=== PATIENT | male | born 1955 | race Caucasian/White ===

== ENCOUNTER 2017-05-29 07:11 | Inpatient (IN) | payer MEDICARE, OTHER ==
[2017-05-29] MEDS ORDERED: Albuterol/Ipratropium NEB.SOL* Albuterol 2.5 MG/Ipratropium 0.5 MG 3 ML INH ONE ×2 (07:21→07:22)
[2017-05-29] MEDS ORDERED: methylPREDNISolone 125 MG* 2 ML VIAL IV ONE (07:22)
[2017-05-29] MEDS ORDERED: NS 0.9% 1000 ML* 1,000 ML IV ONE (07:22)
[2017-05-29] MEDS ORDERED: NS 0.9% 1000 ML* 3,000 ML IV ONE (07:50)
[2017-05-29] MEDS ORDERED: cefTRIAXone(*) 1 GM in NS 0.9% 50 ML* 50 ML IVPB ONE (07:50)
[2017-05-29] MEDS ORDERED: Azithromycin IV(*) 500 MG in NS 0.9% 250 ML* 250 ML IVPB ONE (07:51)
[2017-05-29 07:53] LABS: Hematocrit 51 % (42-52); Hemoglobin 16.9 g/dl (14.0-18.0); Mean Corpuscular HGB Conc 34 g/dl (31-36); Mean Corpuscular Hemoglobin 32 pg (27-31); Mean Corpuscular Volume 96 fL (80-94); Mean Platelet Volume 9 um3 (7.4-10.4); Red Blood Count 5.29 10^6/ul (4.0-5.4); Red Cell Distribution Width 14 % (10.5-15); White Blood Count 13.2 10^3/ul (3.5-10.8)
[2017-05-29 07:54] LABS: Add Diff/Slide Review? Slide Review Added; Comments Flag Yes
--- NOTE | 2017-05-29 08:00 | RAD ---
INDICATION: Shortness of breath, pneumonia and congestive heart failure. COMPARISON: Comparison is made with a prior chest x-ray study from January 22, [address] of the chest from December 03, 2014. TECHNIQUE: A portable view of the chest was obtained. FINDINGS: The heart appears mildly enlarged and unchanged. There is a focal infiltrate at the right lung base suggestive of pneumonia. There is mild blunting of both costophrenic angles which appears unchanged. IMPRESSION: RIGHT BASILAR FILTRATE MOST CONSISTENT WITH PNEUMONIA, RECOMMEND FOLLOW-UP CHEST X-RAYS TO RESOLUTION.
[2017-05-29 08:04] LABS: Albumin 4.7 g/dL (3.2-5.2); BUN/Creatinine Ratio 17.7 (8-20); C Reactive Protein 280.33 mg/L (< 5.00); Calcium 9.6 mg/dL (8.6-10.3); EGFR African American 76.5 (>60); EGFR Non-African American 59.5 (>60); Globulin 3.4 g/dL (2-4); Potassium 4.3 mmol/L (3.5-5.0); Total Bilirubin 1.3 mg/dL (0.2-1.0); Total Protein 8.1 g/dL (6.4-8.9)
[2017-05-29 08:06] LABS: PCO2 Arterial 82 mmHg (35-45)
[2017-05-29 08:07] LABS: Troponin I 0.03 ng/mL (<0.04)
[2017-05-29] MEDS ORDERED: Albuterol 2.5 MG/3 ML NEB.SOL* (0.083%) ONE ×2 (08:12→09:27)
[2017-05-29 08:28] LABS: Immature Granulocytes 8 % (0-9); Neutrophil % 74 % (38-83); RBC Morphology Normal (Normal); Reactive Lymph % 2 % (0-6)
[2017-05-29] MEDS ORDERED: Albuterol 2.5 MG/3 ML NEB.SOL* (0.083%) INH ONE ×2 (09:29→09:30)
[2017-05-29] MEDS ORDERED: NS 0.9% 1000 ML* 1,000 ML IV SCH (09:30)
[2017-05-29] MEDS ORDERED: Albuterol 2.5 MG/3 ML NEB.SOL* (0.083%) INH PRN (09:32)
[2017-05-29 09:48] LABS: EPAP 8; FIO2 45; IPAP 14
[2017-05-29 09:57] LABS: PCO2 Arterial 72 mmHg (35-45)
[2017-05-29] MEDS: Morphine INJ* 2 MG/ML 1 ML CARPUJECT IV PRN ×3 (10:17→23:18)
[2017-05-29] MEDS: NS 0.9% 1000 ML* 2,000 ML IV ONE ×2 (10:35→11:30)
--- NOTE | 2017-05-29 10:49 | ED ---
Shiv Vila Angela, scribed for John Bustamante MD on 05/29/17 at 0731 . Shortness of Breath - HPI Summary HPI Summary: This pt is a 61 y/o male presenting to [facility] c/o SOB and cough x2 days, worse this morning. Pt was pulled out of his car this morning due to SOB and taken to the ED. Pt reports feeling diaphoretic, wheezing a lot, and having a productive cough with brown tenacious phlegm. Pt denies fever, chills, chest pain. He is not on home O2. Pt is a current smoker. PMHx: COPD. Pt has had a similar episode of SOB in 2016. - History of Current Complaint Time Seen by Provider: 05/29/17 07:15 Hx Obtained From: Patient, Family/Freight Shipping Agent - Onset/Duration: Gradual Onset Timing: Constant Associated Signs & Symptoms: Cough (Productive) Related History: Similar Episode - in 2016 - Allergy/Home Medications Allergies/Adverse Reactions: Allergies Allergy/AdvReac Type Severity Reaction Status Date / Time No Known Drug Allergy Allergy See Comment Verified 01/22/16 14:57 PMH/Surg Hx/FS Hx/Imm Hx Respiratory History: Reports: Hx Chronic Obstructive Pulmonary Disease (COPD) Sensory History: Reports: Hx Contacts or Glasses Opthamlomology History: Reports: Hx Contacts or Glasses - Cancer History Cancer Type, Location and Year: NO HISTORY PER PT - Surgical History Surgery Procedure, Year, and Place: tonsils; glaucoma lasar bilat Infectious Disease History: Denies: Hx Clostridium Difficile, Hx Hepatitis, Hx Human Immunodeficiency Virus (HIV), Hx of Known/Suspected MRSA, Hx Shingles, Hx Tuberculosis, Hx Known/ Suspected VRE, Hx Known/Suspected VRSA, History Other Infectious Disease - Family History Known Family History: Positive: Other - NONCONTRIBUTORY - Social History Alcohol Use: None Substance Use Type: Reports: None Smoking Status (MU): Light Every Day Tobacco Smoker Amount Used/How Often: 3 -4 cigs daily Review of Systems Negative: Fever, Chills Eyes: Negative ENT: Negative Negative: Chest Pain Positive: Shortness Of Breath, Cough Gastrointestinal: Negative Genitourinary: Negative Skin: Negative Neurological: Negative Psychological: Normal All Other Systems Reviewed And Are Negative: Yes Physical Exam - Summary Physical Exam Summary: The patient is well-nourished in moderate to severe respiratory distress. The skin is warm and skin color reflects adequate perfusion. Pt is diaphoretic. HEENT: The head is normocephalic and atraumatic. The pupils are equal and reactive. The conjunctivae are clear and without drainage. Pt has rhinorrhea. Mouth reveals moist mucous membranes and the throat is without erythema and exudate. The external ears are intact. The ear canals are patent and without drainage. The tympanic membranes are intact. The pt has a productive cough with brown phlegm. Neck is supple with full range of motion and non-tender. There are no carotid bruits. There is no neck vein distension. Respiratory: Chest is non-tender. There are diminished breath sounds throughout. No rales or crackles were heard. Cardiovascular: Heart is tachycardic. There is no murmur or rub auscultated. There is pedal edema in the lower extremities. Abdomen: The abdomen is non-tender. The abdomen is distended. There are normal bowel sounds heard in all four quadrants. Musculoskeletal: There is no back pain noted. Extremities are non-tender with full range of motion. The capillary refill is greater than 3 seconds. There is pedal edema in the lower extremities. There is no calf tenderness elicited. There is intercostal and abdominal retractions. Neurological: Patient is alert and oriented to person, place and time. The patient has symmetrical motor strength in all four extremities. Psychiatric: The patient has an appropriate affect and does not exhibit any anxiety or depression. The pt is cooperative. Triage Information Reviewed: Yes Vital Signs On Initial Exam: Initial Vitals Temp Pulse Resp BP Pulse Ox 97.6 F 141 28 155/85 63 05/29/17 07:17 05/29/17 07:17 05/29/17 07:17 05/29/17 07:17 05/29/17 07:17 Vital Signs Reviewed: Yes Diagnostics - Vital Signs Vital Signs Temp Pulse Resp BP Pulse Ox 05/29/17 09:00 126 29 127/69 97 05/29/17 08:52 38 05/29/17 08:30 112 25 112/68 98 05/29/17 08:00 137 33 97 05/29/17 07:38 97.6 F 142 38 117/103 92 05/29/17 07:37 139 30 117/103 95 05/29/17 07:20 140 29 85 05/29/17 07:17 97.6 F 141 28 155/85 63 - Laboratory Lab Results: Lab Results 05/29/17 05/29/17 05/29/17 Range/Units 07:25 07:25 07:25 WBC 13.2 H (3.5-10.8) 10^3/ul RBC 5.29 (4.0-5.4) 10^6/ul Hgb 16.9 (14.0-18.0) g/dl Hct 51 (42-52) % MCV 96 H (80-94) fL MCH 32 H (27-31) pg MCHC 34 (31-36) g/dl RDW 14 (10.5-15) % Plt Count 216 (150-450) 10^3/ul MPV 9 (7.4-10.4) um3 Immature Gran % (Auto) 8 (0-9) % Neut % (Auto) 74.5 (38-83) % Lymph % (Auto) 10.4 L (25-47) % [place] % (Auto) 14.4 H (1-9) % Eos % (Auto) 0.2 (0-6) % Baso % (Auto) 0.5 (0-2) % Absolute Neuts (auto) 9.8 H (1.5-7.7) 10^3/ul Absolute Lymphs (auto) 1.4 (1.0-4.8) 10^3/ul Absolute Monos (auto) 1.9 H (0-0.8) 10^3/ul Absolute Eos (auto) 0 (0-0.6) 10^3/ul Absolute Basos (auto) 0.1 (0-0.2) 10^3/ul Absolute Nucleated RBC 0.01 10^3/ul Neutrophils % 74 (38-83) % Band Neutrophils % 8 (0-8) % Lymphocytes % 8 L (25-47) % Reactive Lymphs % 2 (0-6) % Monocytes % 8 (0-13) % Nucleated RBC % 0.1 Normal RBC Morphology Normal (Normal) INR (Anticoag Therapy) (0.89-1.11) APTT (26.0-36.3) seconds Patient Temperature ABG pH (7.35-7.45) ABG pCO2 (35-45) mmHg ABG pO2 (80-100) mmHg ABG HCO3 (19-31) mmol/L ABG O2 Saturation (95-98) % ABG Base Excess (-2.0-2.0) Respiration Rate O2 Delivery Device Ventilator Type Vent Mode FiO2 Inspiratory Time PEEP Pressure Support Pressure Control EPAP IPAP BiPAP Sodium 135 (133-145) mmol/L Potassium 4.3 (3.5-5.0) mmol/L Chloride 97 L (101-111) mmol/L Carbon Dioxide 27 (22-32) mmol/L Anion Gap 11 (2-11) mmol/L BUN 22 (6-24) mg/dL Creatinine 1.24 H (0.67-1.17) mg/dL Est GFR ( Amer) 76.5 (>60) Est GFR (Non-Af Amer) 59.5 (>60) BUN/Creatinine Ratio 17.7 (8-20) Glucose 150 H (70-100) mg/dL Lactic Acid 2.7 H* (0.5-2.0) mmol/L Calcium 9.6 (8.6-10.3) mg/dL Total Bilirubin 1.30 H (0.2-1.0) mg/dL AST 23 (13-39) U/L ALT 20 (7-52) U/L Alkaline Phosphatase 99 (34-104) U/L Troponin I 0.03 (<0.04) ng/mL C-Reactive Protein 280.33 H (< 5.00) mg/L B-Natriuretic Peptide ( - 100) pg/mL Total Protein 8.1 (6.4-8.9) g/dL Albumin 4.7 (3.2-5.2) g/dL Globulin 3.4 (2-4) g/dL Albumin/Globulin Ratio 1.4 (1-3) 05/29/17 05/29/17 05/29/17 Range/Units 07:25 07:25 07:55 WBC (3.5-10.8) 10^3/ul RBC (4.0-5.4) 10^6/ul Hgb (14.0-18.0) g/dl Hct (42-52) % MCV (80-94) fL MCH (27-31) pg MCHC (31-36) g/dl RDW (10.5-15) % Plt Count (150-450) 10^3/ul MPV (7.4-10.4) um3 Immature Gran % (Auto) (0-9) % Neut % (Auto) (38-83) % Lymph % (Auto) (25-47) % [place] % (Auto) (1-9) % Eos % (Auto) (0-6) % Baso % (Auto) (0-2) % Absolute Neuts (auto) (1.5-7.7) 10^3/ul Absolute Lymphs (auto) (1.0-4.8) 10^3/ul Absolute Monos (auto) (0-0.8) 10^3/ul Absolute Eos (auto) (0-0.6) 10^3/ul Absolute Basos (auto) (0-0.2) 10^3/ul Absolute Nucleated RBC 10^3/ul Neutrophils % (38-83) % Band Neutrophils % (0-8) % Lymphocytes % (25-47) % Reactive Lymphs % (0-6) % Monocytes % (0-13) % Nucleated RBC % Normal RBC Morphology (Normal) INR (Anticoag Therapy) 1.15 H (0.89-1.11) APTT 42.7 H (26.0-36.3) seconds Patient Temperature Not Reportable ABG pH 7.15 L* (7.35-7.45) ABG pCO2 82 H* (35-45) mmHg ABG pO2 120 H (80-100) mmHg ABG HCO3 22.3 (19-31) mmol/L ABG O2 Saturation 97.5 (95-98) % ABG Base Excess -3.2 L (-2.0-2.0) Respiration Rate Not Reportable O2 Delivery Device neb Ventilator Type Not Reportable Vent Mode Not Reportable FiO2 Not Reportable Inspiratory Time Not Reportable PEEP Not Reportable Pressure Support Not Reportable Pressure Control Not Reportable EPAP Not Reportable IPAP Not Reportable BiPAP Not Reportable Sodium (133-145) mmol/L Potassium (3.5-5.0) mmol/L Chloride (101-111) mmol/L Carbon Dioxide (22-32) mmol/L Anion Gap (2-11) mmol/L BUN (6-24) mg/dL Creatinine (0.67-1.17) mg/dL Est GFR ( Amer) (>60) Est GFR (Non-Af Amer) (>60) BUN/Creatinine Ratio (8-20) Glucose (70-100) mg/dL Lactic Acid (0.5-2.0) mmol/L Calcium (8.6-10.3) mg/dL Total Bilirubin (0.2-1.0) mg/dL AST (13-39) U/L ALT (7-52) U/L Alkaline Phosphatase (34-104) U/L Troponin I (<0.04) ng/mL C-Reactive Protein (< 5.00) mg/L B-Natriuretic Peptide 118 H ( - 100) pg/mL Total Protein (6.4-8.9) g/dL Albumin (3.2-5.2) g/dL Globulin (2-4) g/dL Albumin/Globulin Ratio (1-3) Result Diagrams: 05/29/17 07:25 05/29/17 07:25 Lab Statement: Any lab studies that have been ordered have been reviewed, and results considered in the medical decision making process. - Radiology Chest XR Xray Interpretation: Positive (See Comments) - Right lower lobe infiltrate consistent with pneumonia. Radiology Interpretation Completed By: ED Physician, Radiologist - RADIOLOGIST IMPRESSION: Right basilar filtrate most consistent with pneumonia. Recommend follow-up chest X-rays to resolution. ED physician has reviewed this radiology report and agrees. - EKG 7:19 Cardiac Rate: Tachycardia EKG Rhythm: Sinus Rhythm ST Segment: Non-Specific - inferior leads EKG Interpretation: Poor R-wave progression. No STEMI. Re-Evaluation - Re-Evaluation First Eval Re-Evaluation Time: 08:04 Comment: I reviewed the XR results with the pt and . Second Eval Re-Evaluation Time: 08:46 Comment: Pt reports feeling a little better. Pt is not looking well. Course/Dx - Course Assessment/Plan: Elevated BP noted. Labs, chest XR, and EKG were obtained. In the ED course, the pt was given a breathing treatment and solu-medrol. Chest XR shows right basilar filtrate most consistent with pneumonia. Recommend follow- up chest X-rays to resolution. I disccused the pt's case with Dr. Arguelles, who will admit the pt. The pt will be admitted in stable condition. - Diagnoses Differential Diagnosis/HQI/PQRI: Positive: Bronchitis, CHF, COPD Exacerbation, IA, Pneumonia, Other - sepsis Provider Diagnoses: acute respiratory distress/failure, Right lower lobe pneumonia, COPD exacerbation - Physician Notifications Discussed Care of Patient With: Trina Arguelles Time Discussed With Above Provider: 08:50 Instructed by Provider To: Other - Dr. Arguelles will admit the pt. - Critical Care Time Critical Care Time: 30-74 min - 45 minutes Discharge - Discharge Plan Condition: Stable Disposition: ADMITTED TO [facility] documentation as recorded by the Shiv castle Angela accurately reflects the service I personally performed and the decisions made by me, John Bustamante MD.
--- NOTE | 2017-05-29 11:33 | HP ---
CC: Dr. Farris * DATE OF ADMISSION: 05/29/2017. PRIMARY CARE PROVIDER: Dr. Farris. CHIEF COMPLAINT: Shortness of breath. HISTORY OF PRESENT ILLNESS: Mr. Tavares is a 61-year-old male who has a known history of COPD and ongoing tobacco abuse who presents to the emergency room with complaints of severe shortness of breath. The history is obtained from the patient's as the patient is in severe respiratory distress. She states that approximately two days prior to admission he developed cold-like symptoms. She states that very rapidly his shortness of breath progressed to the point where he was unable to breath very easily at home. She noted that he has been having some cough, but not much sputum production; however, after arriving in the emergency room he has been bringing up thick yellow sputum per the respiratory therapist. The patient is extremely tired out from breathing rapidly. He is able to shake his head no that he is not having any chest pain. His states that he has not been having any fever at home as far as she knows. He has been, however, complaining of his back feeling more sore at home than usual. PAST MEDICAL HISTORY: 1. COPD/chronic bronchitis. 2. Ongoing tobacco abuse. PAST SURGICAL HISTORY: None per the patient's . MEDICATIONS: Unknown. ALLERGIES: None. FAMILY HISTORY: Unobtainable from the patient; however, his states that his mom is living, she as COPD. His father of lung cancer. He has one brother who is living, also has COPD. SOCIAL HISTORY: The patient is . He lives with his , Samra Zabala, who is his healthcare proxy. He has two children. He is a former driver's education instructor. He has been smoking since the age of 16 and is currently down to half a pack per day. He does not drink alcohol. REVIEW OF SYSTEMS: Unobtainable from the patient due to acute respiratory distress. PHYSICAL EXAMINATION GENERAL: The patient is a well-developed, middle-aged male sitting on the stretcher, tachypneic and appearing to be in acute distress despite being on BiPAP. VITAL SIGNS: Blood pressure 127/69, pulse 126, respirations 29, temperature 97.6, O2 sat 97 percent on BiPAP with an FI02 of 45 percent. HEENT: Pupils are equal, they are round. Sclerae appear to be injected. Extraocular muscles are intact. Oropharynx is not able to be inspected as the patient is on BiPAP. NECK: No submandibular, cervical or supraclavicular adenopathy is noted. Thyroid is not enlarged. No thyroid nodules are noted. CARDIAC: Normal S1, S2, heart sounds are very distant and rapid. PULMONARY: There is markedly diminished breath sounds in all lung proctor with essentially no air movement noted. ABDOMEN: Bowel sounds are present. Abdomen is soft, nontender, nondistended. It is obese. MUSCULOSKELETAL: There is no cyanosis noted of the digits. There is full active range of motion of the upper extremities. Lower extremity range of motion is not tested due to the patient's respiratory distress. SKIN: Warm, it is dry. There is a fungal-appearing rash to the patient's left lower leg. NEUROLOGIC: Not tested at this time due to the patient's acute respiratory failure. PSYCH: The patient is alert, he appears somewhat anxious which is appropriate for his current situation. LABORATORY DATA: WBC 13.2, hemoglobin 16.9, hematocrit 51, platelets 216. INR 1.15. Sodium 135, potassium 4.3, chloride 97, CO2 27, BUN 22, creatinine 1.24, glucose 150, lactic acid 2.7, calcium 9.6, bilirubin 1.3, AST 23, ALT 20, alk phos 99, troponin 0.03, CRP 280.33, BNP 118, albumin 4.7. ABG 7.15/82/120. EKG revealed sinus tachycardia with a rate of 139. Chest x-ray revealed right basilar infiltrate most consistent with pneumonia. ASSESSMENT AND PLAN: Mr. Tavares is a 61-year-old male with a known history of COPD and ongoing tobacco abuse who presents to the emergency room with complaints of progressive shortness of breath and is found to have a right basilar infiltrate with resultant COPD exacerbation and acute hypoxic and hypercarbic respiratory failure. 1. Acute hypoxic and hypercarbic respiratory failure secondary to right basilar pneumonia: The patient upon immediate assessment in the emergency room was found to have an O2 saturation of only in the 60s. The patient has initially started on Vapotherm; however, ABG revealed his PCO2 to be elevated at 82, therefore he was placed on BiPAP. The patient continues to have a significant amount of work of breathing. I am concerned that he may not be able to be managed with BiPAP and I have confirmed with both the patient and his that he would accept intubation if necessary. The patient will have Solu-Medrol 40 mg IV q.8 hours as well as DuoNeb's and Albuterol nebs available to rougher helper in the air movement. The patient has a severe COPD exacerbation at this point. I believe the COPD exacerbation and resultant hypoxic and hypercarbic respiratory failure secondary to a right basilar pneumonia. The patient has been essentially living at home and out of the hospital for a prolonged period of time. He will be treated as if this is a community- acquired pneumonia with Ceftriaxone and Azithromycin. Sputum culture has been ordered and sent. The gram stain is positive for gram positive cocci in chains , gram positive cocci in clusters, gram negative coccobacilli, and gram positive bacilli. This culture will be followed. Additionally, strep pneumoniae and legionella urinary antigens will be sent. The patient will be admitted to the Intensive Care Unit, again as I am concerned that he may require intubation if he does not turn around in the next hour or so. 2. Sepsis secondary to a right lower lobe pneumonia: The patient's SOFA score is 4 at the time of admission to the hospital. He is septic secondary to a right lower lobe pneumonia. He will received IV fluid hydration. He has already received 3 liters of IV fluid in the emergency room. Again, the patient is going to be admitted to the Intensive Care Unit. 3. Elevated blood sugar: The patient's blood sugar is moderately elevated at 150. This could be a stress reaction; however, I will go ahead and check a hemoglobin A1c. 4. Lactic acidosis: The patient's lactic acid is elevated likely secondary to sepsis and his pneumonia. 5. DVT prophylaxis: According to the adult thrombosis prophylaxis risk factor assessment guide, the patient has a total risk factor score of 3, making his high risk. He will be placed on Heparin 5000 units subcutaneous q.8 hours for DVT prophylaxis. 6. Code status is DNR with a trial of intubation. Sixty-five minutes were spent of critical care time on this patient due to his acute respiratory failure. [id number]/[facility] #: [id number] LUIS
[2017-05-29] MEDS: Cefepime(*) 2 GM in NS 0.9% 50 ML* 50 ML IVPB SCH ×2 (12:15→23:18)
[2017-05-29 12:21] LABS: Urine Bilirubin Negative (Negative); Urine Glucose Negative (Negative); Urine Nitrite Negative (Negative)
[2017-05-29] MEDS: LORazepam INJ* 2 MG/ML 1 ML VIAL IV PUSH PRN ×2 (12:42→21:48)
[2017-05-29] MEDS: Nicotine PATCH 21 MG/24 HR* PATCH TRANSDERM SCH (12:43)
--- NOTE | 2017-05-29 12:50 | CONSULT ---
Consult Consult: CRITICAL CARE MEDICINE DATE: 05/29/17 TIME: 1230 PRIMARY CARE PROVIDER: Brenton REFERRING PROVIDER: Blane REASON/CHIEF COMPLAINT: sob HISTORY OF PRESENT ILLNESS: 61 yo male with h/o copd, acute resp failure with intubation before in 2012, ongoing tob use presenting with severe sob, progressive over last few days. His thinks he has the flu as their daughter subjectively has the flu. Pt had inc cough last 3 days and advancing fatigue. On presentation to ER he was placed on bipap given severe resp acidosis and wob. His repeat abg ph is unchanged. Received abx (C3 and azithro) for RLL pna and about 4L saline. wob remains and potential need for intubation. REVIEW OF SYSTEMS: As per HPI. PAST MEDICAL HISTORY: As per HPI. diffuse bronchiectasis. chronic back pain. madison on prior 2012 admit. MEDICATIONS: Reviewed. ALLERGIES: NKDA SOCIAL HISTORY: Reviewed. about 1/2 ppd. FAMILY HISTORY: Noncontributory at present. PHYSICAL EXAM: Vital Signs: Reviewed. reviewed. HR 110s. RR 30s. Neurologic: awake, communicating. holds capacity but appears fatigued. HEENT: anicteric jason. mm dry. on bipap. Cardiovascular: Tachy, no m appreciated Respiratory: distant with diffuse fine crackles bl Abdomen: obese, soft, nt Extremities: warm Access: picc placed. LABS: Reviewed. IMAGING: Reviewed. MEDICATIONS: Reviewed. ASSESSMENT: 61 M Acute hypercarbic and hypoxic resp failure copd exac CAP Severe sepsis sec to CAP MADISON sec to above lactic acidosis PLAN: Neurologic: communicating and holds capacity. declining ett at this time. present. morphine prn. Cardiovascular: perfusing but inc demands. still needs intravascular volume and will attempt to keep without extra transudative lung water but concern his degree of exudative fluid will continue to expand. place picc as rather early vasopressors to avoid overload, as his dependent lungs can fill up with fluid fast. further fluid this am. Respiratory: on bipap which he will need to continue. MV high teens and a lot to maintain. continue as is. avoid leak as jason is a problem. as explained to pt and his pt in severe illness currently and would rather early intubation to work on reversible process. after some dilibiration he is declining at this time. Explained risk/benefits and will support for some time today on bipap and then re-eval need and his wishes. hopefully more time on bipap can help him ventilate and catch up on his demands with fluids and abx instilled to decrease said demands. time. Gastrointestinal: npo. sup. Renal/Metabolic: f/u madison sec to pre-renal on admission and LA clearance. Infectious Disease: on C3, azithro, but given his degree of bronchiectasis would prefer pseudomonal coverage early on given his crisis, and therefore Cefepime plus azithro for the moment. f/u cx and can de-escalate as indicated. Hematology: hemoconcentrated. hsq Endocrine: given steroids for his copd benenfit and may help his acute ailments. Musculoskeletal: in bed currently and avoid deconditioning. Psych/Social: updated Supportive and preventative care as ordered. Vaccine: declines flu vac SUP: H2 VTE prophylaxis: heparin Disposition: ICU care Code Status: DNR Critical Care Time: 35min FRosey Webb DO
--- NOTE | 2017-05-29 14:41 | PN ---
Progress Note - Progress Note Date of Service: 05/29/17 Note: CRITICAL CARE MEDICINE DATE: 05/29/17 TIME: 1430 Pt tolerating. still declines intubation. explained we'll need to try the bipap for the day and night and hopefully can show some improvement. This is what he agrees too. Time. support. Disposition: ICU care Code Status: DNR/DNI Critical Care Time: 15min FRosey Webb, DO
[2017-05-29] MEDS: methylPREDNISolone SOD 40 MG* 1 ML VIAL IV SCH ×2 (16:07→23:18)
[2017-05-29] MEDS: Nicotine Patch Removal NOTE PATCH OFF SCH (21:41)
[2017-05-29] MEDS ORDERED: NS 0.9% 50 ML* 50 ML ONE (23:00)
[2017-05-30] MEDS: LORazepam INJ* 2 MG/ML 1 ML VIAL IV PUSH PRN (03:57)
[2017-05-30 04:27] LABS: Hematocrit 42 % (42-52); Hemoglobin 13.8 g/dl (14.0-18.0); Mean Corpuscular HGB Conc 33 g/dl (31-36); Mean Corpuscular Hemoglobin 32 pg (27-31); Mean Corpuscular Volume 97 fL (80-94); Mean Platelet Volume 9 um3 (7.4-10.4); Red Blood Count 4.33 10^6/ul (4.0-5.4); Red Cell Distribution Width 14 % (10.5-15); White Blood Count 8.4 10^3/ul (3.5-10.8)
[2017-05-30 04:32] LABS: BUN/Creatinine Ratio 21.2 (8-20); Calcium 7.7 mg/dL (8.6-10.3); EGFR African American 118.2 (>60); EGFR Non-African American 91.9 (>60); Potassium 4.5 mmol/L (3.5-5.0)
[2017-05-30] MEDS: Heparin VIAL(*) 5000 UNITS/ML VIAL (FIVE THOUSAND) SUBCUT SCH ×3 (05:09→22:04)
--- NOTE | 2017-05-30 07:15 | PN ---
Subjective Date of Service: 05/30/17 Interval History: Pt states he may feel slightly better today than yesterday. He has still been coughing up mucous. He is on BiPAP and it is difficult to communicate. Objective Active Medications: Acetaminophen (Tylenol Tab*) 650 mg PO Q4H PRN PRN Reason: PAIN Albuterol (Ventolin 2.5 Mg/3 Ml Neb.Silvana*) 2.5 mg INH Q1H PRN PRN Reason: SOB/WHEEZING Albuterol/Ipratropium (Duoneb (Albuterol 2.5 Mg/Ipratropium 0.5 Mg)) 1 neb INH Q2H PRN PRN Reason: SOB/WHEEZING Heparin Sodium (Porcine) (Heparin Flush Picc/Ml/Cvc(*)) 1 - 3 ml FLUSH 0600, 1800 [facility]GAN PRN Reason: Protocol Last Admin: 05/30/17 05:08 Dose: 2 ml Heparin Sodium (Porcine) (Heparin Vial(*)) 5,000 units SUBCUT Q8HR [facility] Last Admin: 05/30/17 05:09 Dose: 5,000 units Sodium Chloride (Ns 0.9% 1000 Ml*) 1,000 mls @ 125 mls/hr IV PER RATE [facility] Last Admin: 05/29/17 10:19 Dose: 125 mls/hr Azithromycin 500 mg/ Sodium (Chloride) 250 mls @ 250 mls/hr IVPB Q24H [facility] Cefepime HCl 2 gm/ Sodium (Chloride) 50 mls @ 100 mls/hr IVPB Q12H [facility] Last Admin: 05/29/17 23:18 Dose: 100 mls/hr Lorazepam (Ativan Inj*) 0.5 mg IV PUSH Q4H PRN PRN Reason: ANXIETY Last Admin: 05/30/17 03:57 Dose: 0.5 mg Methylprednisolone Sodium Succinate (Solu-Medrol 40 Mg) 40 mg IV Q8H [facility] Last Admin: 05/29/17 23:18 Dose: 40 mg Morphine Sulfate (Morphine Inj (Syringe)*) 2 mg IV Q4H PRN PRN Reason: air hunger Last Admin: 05/29/17 23:18 Dose: 2 mg Nicotine (Nicotine Patch 21 Mg/24 Hr*) 1 patch TRANSDERM DAILY [facility] Last Admin: 05/29/17 12:43 Dose: 1 patch Pharmacy Profile Note (Nicotine Patch Removal Note*) 1 note PATCH OFF 2100 MORGAN Last Admin: 05/29/17 21:41 Dose: 1 note Vital Signs 05/29/17 05/29/17 05/29/17 09:30 09:40 09:53 Temperature Pulse Rate 121 118 123 Respiratory 30 26 Rate Blood Pressure 121/58 (mmHg) O2 Sat by Pulse 97 97 97 Oximetry 05/29/17 05/29/17 05/29/17 10:00 10:03 10:06 Temperature 98.5 F Pulse Rate 120 127 126 Respiratory 38 Rate Blood Pressure 136/84 136/84 (mmHg) O2 Sat by Pulse 95 96 93 Oximetry 05/29/17 05/29/17 05/29/17 10:16 10:17 10:30 Temperature Pulse Rate 120 118 Respiratory 35 31 33 Rate Blood Pressure 136/78 134/73 (mmHg) O2 Sat by Pulse 93 93 Oximetry 05/29/17 05/29/17 05/29/17 10:42 11:00 11:12 Temperature Pulse Rate 115 112 Respiratory 32 34 33 Rate Blood Pressure 121/68 (mmHg) O2 Sat by Pulse 95 95 Oximetry 05/29/17 05/29/17 05/29/17 11:30 11:48 12:00 Temperature 97.8 F Pulse Rate 110 113 Respiratory 32 30 32 Rate Blood Pressure 122/68 122/75 (mmHg) O2 Sat by Pulse 95 95 Oximetry 05/29/17 05/29/17 05/29/17 12:30 12:42 13:00 Temperature Pulse Rate 109 111 Respiratory 24 26 34 Rate Blood Pressure 118/74 117/71 (mmHg) O2 Sat by Pulse 96 93 Oximetry 05/29/17 05/29/17 05/29/17 14:00 14:47 15:00 Temperature Pulse Rate 108 121 123 Respiratory 31 36 26 Rate Blood Pressure 130/69 142/72 130/88 (mmHg) O2 Sat by Pulse 91 94 95 Oximetry 05/29/17 05/29/17 05/29/17 16:00 17:00 17:01 Temperature 97.7 F Pulse Rate 110 118 117 Respiratory 28 21 27 Rate Blood Pressure 117/61 166/98 (mmHg) O2 Sat by Pulse 94 95 97 Oximetry 05/29/17 05/29/17 05/29/17 17:06 17:11 18:00 Temperature Pulse Rate 112 105 Respiratory 36 33 28 Rate Blood Pressure 128/73 113/65 (mmHg) O2 Sat by Pulse 95 94 Oximetry 05/29/17 05/29/17 05/29/17 19:00 20:00 20:28 Temperature 98.4 F Pulse Rate 101 106 99 Respiratory 26 24 28 Rate Blood Pressure 116/67 119/64 (mmHg) O2 Sat by Pulse 93 94 93 Oximetry 05/29/17 05/29/17 05/29/17 20:30 21:00 21:30 Temperature Pulse Rate 101 101 103 Respiratory 28 31 27 Rate Blood Pressure 119/65 142/69 104/59 (mmHg) O2 Sat by Pulse 93 92 93 Oximetry 05/29/17 05/29/17 05/29/17 21:48 22:00 22:30 Temperature Pulse Rate 102 101 Respiratory 22 26 27 Rate Blood Pressure 111/60 112/66 (mmHg) O2 Sat by Pulse 90 90 Oximetry 05/29/17 05/29/17 05/29/17 23:00 23:18 23:30 Temperature Pulse Rate 100 103 Respiratory 28 30 31 Rate Blood Pressure 122/65 109/61 (mmHg) O2 Sat by Pulse 91 94 Oximetry 05/30/17 05/30/17 05/30/17 00:00 00:15 00:30 Temperature 97.1 F Pulse Rate 103 102 100 Respiratory 28 27 33 Rate Blood Pressure 110/65 137/67 (mmHg) O2 Sat by Pulse 94 94 90 Oximetry 05/30/17 05/30/17 05/30/17 01:00 01:30 02:00 Temperature Pulse Rate 100 98 99 Respiratory 25 23 26 Rate Blood Pressure 114/63 112/67 116/62 (mmHg) O2 Sat by Pulse 93 92 94 Oximetry 05/30/17 05/30/17 05/30/17 02:30 03:00 03:30 Temperature Pulse Rate 96 96 93 Respiratory 26 13 21 Rate Blood Pressure 106/64 131/72 121/67 (mmHg) O2 Sat by Pulse 93 92 94 Oximetry 05/30/17 05/30/17 05/30/17 03:57 04:00 04:30 Temperature 98.1 F Pulse Rate 101 98 Respiratory 25 27 26 Rate Blood Pressure 105/61 103/59 (mmHg) O2 Sat by Pulse 92 92 Oximetry 05/30/17 05/30/17 05/30/17 05:00 05:30 05:51 Temperature Pulse Rate 96 97 Respiratory 29 26 23 Rate Blood Pressure 116/60 105/56 (mmHg) O2 Sat by Pulse 93 92 Oximetry 05/30/17 06:00 Temperature Pulse Rate 99 Respiratory 22 Rate Blood Pressure 104/53 (mmHg) O2 Sat by Pulse 92 Oximetry Oxygen Devices in Use Now: None Appearance: Middle aged male lying in bed sleeping, awakens to voice, NAD Eyes: No Scleral Icterus Ears/Nose/Mouth/Throat: Mucous Membranes Moist Respiratory: Symmetrical Chest Expansion and Respiratory Effort, Clear to Auscultation - improved breath sounds to lateral bases, lung sounds anteriorly and at the lateral bases are clear Cardiovascular: NL Sounds; No Murmurs; No JVD, No Edema, - - mildly tachycardic and regular Abdominal: NL Sounds; No Tenderness; No Distention Extremities: No Clubbing, Cyanosis Skin: No Rash or Ulcers, No Nodules or Sclerosis Neurological: - - pt seems slightly lethargic Result Diagrams: 05/30/17 04:09 05/30/17 04:09 Additional Lab and Data: Lab Results 05/29/17 05/29/17 05/29/17 Range/Units 07:25 07:25 07:25 WBC 13.2 H (3.5-10.8) 10^3/ul RBC 5.29 (4.0-5.4) 10^6/ul Hgb 16.9 (14.0-18.0) g/dl Hct 51 (42-52) % MCV 96 H (80-94) fL MCH 32 H (27-31) pg MCHC 34 (31-36) g/dl RDW 14 (10.5-15) % Plt Count 216 (150-450) 10^3/ul MPV 9 (7.4-10.4) um3 Immature Gran % (Auto) 8 (0-9) % Neut % (Auto) 74.5 (38-83) % Lymph % (Auto) 10.4 L (25-47) % [place] % (Auto) 14.4 H (1-9) % Eos % (Auto) 0.2 (0-6) % Baso % (Auto) 0.5 (0-2) % Absolute Neuts (auto) 9.8 H (1.5-7.7) 10^3/ul Absolute Lymphs (auto) 1.4 (1.0-4.8) 10^3/ul Absolute Monos (auto) 1.9 H (0-0.8) 10^3/ul Absolute Eos (auto) 0 (0-0.6) 10^3/ul Absolute Basos (auto) 0.1 (0-0.2) 10^3/ul Absolute Nucleated RBC 0.01 10^3/ul Neutrophils % 74 (38-83) % Band Neutrophils % 8 (0-8) % Lymphocytes % 8 L (25-47) % Reactive Lymphs % 2 (0-6) % Monocytes % 8 (0-13) % Nucleated RBC % 0.1 Normal RBC Morphology Normal (Normal) INR (Anticoag Therapy) (0.89-1.11) APTT (26.0-36.3) seconds Patient Temperature ABG pH (7.35-7.45) ABG pCO2 (35-45) mmHg ABG pO2 (80-100) mmHg ABG HCO3 (19-31) mmol/L ABG O2 Saturation (95-98) % ABG Base Excess (-2.0-2.0) Respiration Rate O2 Delivery Device Ventilator Type Vent Mode FiO2 Inspiratory Time PEEP Pressure Support Pressure Control EPAP IPAP BiPAP Sodium 135 (133-145) mmol/L Potassium 4.3 (3.5-5.0) mmol/L Chloride 97 L (101-111) mmol/L Carbon Dioxide 27 (22-32) mmol/L Anion Gap 11 (2-11) mmol/L BUN 22 (6-24) mg/dL Creatinine 1.24 H (0.67-1.17) mg/dL Est GFR ( Amer) 76.5 (>60) Est GFR (Non-Af Amer) 59.5 (>60) BUN/Creatinine Ratio 17.7 (8-20) Glucose 150 H (70-100) mg/dL Lactic Acid 2.7 H* (0.5-2.0) mmol/L Calcium 9.6 (8.6-10.3) mg/dL Total Bilirubin 1.30 H (0.2-1.0) mg/dL AST 23 (13-39) U/L ALT 20 (7-52) U/L Alkaline Phosphatase 99 (34-104) U/L Troponin I 0.03 (<0.04) ng/mL C-Reactive Protein 280.33 H (< 5.00) mg/L B-Natriuretic Peptide ( - 100) pg/mL Total Protein 8.1 (6.4-8.9) g/dL Albumin 4.7 (3.2-5.2) g/dL Globulin 3.4 (2-4) g/dL Albumin/Globulin Ratio 1.4 (1-3) 05/29/17 05/29/17 05/29/17 Range/Units 07:25 07:25 07:55 WBC (3.5-10.8) 10^3/ul RBC (4.0-5.4) 10^6/ul Hgb (14.0-18.0) g/dl Hct (42-52) % MCV (80-94) fL MCH (27-31) pg MCHC (31-36) g/dl RDW (10.5-15) % Plt Count (150-450) 10^3/ul MPV (7.4-10.4) um3 Immature Gran % (Auto) (0-9) % Neut % (Auto) (38-83) % Lymph % (Auto) (25-47) % [place] % (Auto) (1-9) % Eos % (Auto) (0-6) % Baso % (Auto) (0-2) % Absolute Neuts (auto) (1.5-7.7) 10^3/ul Absolute Lymphs (auto) (1.0-4.8) 10^3/ul Absolute Monos (auto) (0-0.8) 10^3/ul Absolute Eos (auto) (0-0.6) 10^3/ul Absolute Basos (auto) (0-0.2) 10^3/ul Absolute Nucleated RBC 10^3/ul Neutrophils % (38-83) % Band Neutrophils % (0-8) % Lymphocytes % (25-47) % Reactive Lymphs % (0-6) % Monocytes % (0-13) % Nucleated RBC % Normal RBC Morphology (Normal) INR (Anticoag Therapy) 1.15 H (0.89-1.11) APTT 42.7 H (26.0-36.3) seconds Patient Temperature Not Reportable ABG pH 7.15 L* (7.35-7.45) ABG pCO2 82 H* (35-45) mmHg ABG pO2 120 H (80-100) mmHg ABG HCO3 22.3 (19-31) mmol/L ABG O2 Saturation 97.5 (95-98) % ABG Base Excess -3.2 L (-2.0-2.0) Respiration Rate Not Reportable O2 Delivery Device neb Ventilator Type Not Reportable Vent Mode Not Reportable FiO2 Not Reportable Inspiratory Time Not Reportable PEEP Not Reportable Pressure Support Not Reportable Pressure Control Not Reportable EPAP Not Reportable IPAP Not Reportable BiPAP Not Reportable Sodium (133-145) mmol/L Potassium (3.5-5.0) mmol/L Chloride (101-111) mmol/L Carbon Dioxide (22-32) mmol/L Anion Gap (2-11) mmol/L BUN (6-24) mg/dL Creatinine (0.67-1.17) mg/dL Est GFR ( Amer) (>60) Est GFR (Non-Af Amer) (>60) BUN/Creatinine Ratio (8-20) Glucose (70-100) mg/dL Lactic Acid (0.5-2.0) mmol/L Calcium (8.6-10.3) mg/dL Total Bilirubin (0.2-1.0) mg/dL AST (13-39) U/L ALT (7-52) U/L Alkaline Phosphatase (34-104) U/L Troponin I (<0.04) ng/mL C-Reactive Protein (< 5.00) mg/L B-Natriuretic Peptide 118 H ( - 100) pg/mL Total Protein (6.4-8.9) g/dL Albumin (3.2-5.2) g/dL Globulin (2-4) g/dL Albumin/Globulin Ratio (1-3) Microbiology and Other Data: Microbiology 05/29/17 11:59 Legionella Urinary Antigen - Final Urine Negative Legionella Streptococcus pneumoniae Ag Screen - Final Negative S. pneumo Antigen 05/29/17 10:20 Nasal Screen MRSA (PCR)(EDMUND) - Final Nasal Mrsa Negative Assess/Plan/Problems-Billing Mr Tavares is a 61 yo M who has a h/o COPD not on home O2 and ongoing tobacco abuse who presented to the ER with c/o severe progressive SOB and was admitted for acute hypoxic and hypercarbic respiratory failure secondary to COPD exacerbation secondary to a RLL pneumonia with associated sepsis. - Patient Problems (1) Acute respiratory failure with hypoxia and hypercarbia Current Visit: Yes Status: Acute Code(s): J96.01 - ACUTE RESPIRATORY FAILURE WITH HYPOXIA; J96.02 - ACUTE RESPIRATORY FAILURE WITH HYPERCAPNIA SNOMED Code(s): 95088107 Comment: The patient remains on BiPAP. Intubation yesterday was recommended but the patient declined. His work of breathing is much improved today on the BiPAP but it is unclear if he can be liberated from the BiPAP yet. Will get repeat ABG this AM. I am concerned about his mental status this AM as he seems slightly lethargic. Dr. Webb will follow up later today. (2) Sepsis Current Visit: Yes Status: Acute Comment: On admission the patient was septic secondary to RLL with a SOFA score of 4. Continue IVF hydration and treatment of pneumonia. (3) RLL pneumonia Current Visit: Yes Status: Acute Code(s): J18.1 - LOBAR PNEUMONIA, UNSPECIFIED ORGANISM SNOMED Code(s): 597942896 Comment: Continue azithromycin and cefepime for a presumed community acquired pneumonia (cefepime instead of ceftriaxone to cover for psuedomonas). (4) COPD exacerbation Current Visit: Yes Status: Acute Code(s): J44.1 - CHRONIC OBSTRUCTIVE PULMONARY DISEASE W (ACUTE) EXACERBATION SNOMED Code(s): 798275608 Comment: Improved aeration today. Continue IV solumedrol and frequent nebs. COPD exacerbation secondary to RLL pneumonia. (5) HTN (hypertension) Current Visit: Yes Status: Acute Code(s): I10 - ESSENTIAL (PRIMARY) HYPERTENSION SNOMED Code(s): 12523940 Comment: BP is under good control off his home dose of metoprolol. Will continue to monitor. (6) DVT prophylaxis Current Visit: Yes Status: Acute Code(s): LUH9361 - SNOMED Code(s): 233692744 Comment: SQ heparin (7) DNR (do not resuscitate) Current Visit: Yes Status: Acute
[2017-05-30] MEDS: Morphine INJ* 2 MG/ML 1 ML CARPUJECT IV PRN ×3 (07:45→22:04)
[2017-05-30] MEDS: methylPREDNISolone SOD 40 MG* 1 ML VIAL IV SCH ×2 (07:46→14:28)
[2017-05-30] MEDS ORDERED: cefTRIAXone VIAL(*) 1,000 MG in NS 0.9% 50 ML* 50 ML IVPB SCH (08:00)
[2017-05-30] MEDS: Albuterol/Ipratropium NEB.SOL* Albuterol 2.5 MG/Ipratropium 0.5 MG 3 ML INH PRN ×2 (08:16→17:08)
[2017-05-30 08:17] LABS: BIPAP y; EPAP 8; FIO2 40; IPAP 14; Resp Rate 16
[2017-05-30 08:18] LABS: PCO2 Arterial 64 mmHg (35-45)
[2017-05-30] MEDS: Nicotine PATCH 21 MG/24 HR* PATCH TRANSDERM SCH (09:04)
[2017-05-30] MEDS: Azithromycin IV(*) 500 MG in NS 0.9% 250 ML* 250 ML IVPB SCH (09:04)
[2017-05-30] MEDS ORDERED: Metoprolol Tartrate TAB* 25 MG PO ONE (11:07)
--- NOTE | 2017-05-30 11:16 | PN ---
Progress Note - Progress Note Date of Service: 05/30/17 Note: CRITICAL CARE MEDICINE DATE: 05/30/17 TIME: 940 SUBJECTIVE: Patient seen and examined. Remembers my name. no complaints. erik bipap. PHYSICAL EXAM: Vital Signs: Reviewed. reviewed. HR 90-100s. RR 20s. Neurologic: awake, communicating. holds capacity. HEENT: anicteric jason. mm dry. on bipap. Cardiovascular: Tachy, no m appreciated Respiratory: distant but better oveall excursion. Abdomen: obese, soft, nt Extremities: warm Access: picc LABS: Reviewed. IMAGING: Reviewed. MEDICATIONS: Reviewed. ASSESSMENT: 61 M Acute hypercarbic and hypoxic resp failure copd exac CAP Severe sepsis sec to CAP M[place]ISON sec to above lactic acidosis PLAN: Neurologic: communicating and holds capacity. received mrphine and ativan and can try and avoid off bipap. Cardiovascular: perfusing and vol a touch up but optimized. dc ivf. allow him to mobilize needs. HR up but may need bb back. start back at lower dose and ramp back up to home dosing. Respiratory: off bipap this am and see how he fairs. last pH 7.25, but mentation and good and should be able to tolerate ventilation needs with some coaching. try to avoid rescue today but plan nocturnal bipap tonight. Gastrointestinal: reg diet today Renal/Metabolic: madison better. off ivf. Infectious Disease: on C4 and azithro today, but as long as cx not revealing gn nor concern for pseudomonas (given his bronchiectasis) would be ok converting back to C3 and azithro unless another culpruit identified to de-escalate further. strept most likely at the moment, and can use C3 for such and azithro for copd benefit as well. Hematology: stable. hsq Endocrine: steroid taper. ssi Musculoskeletal: oob. ambulate if able. pt prn Psych/Social: pt expressed understanding. Supportive and preventative care as ordered. Vaccine: declines flu vac SUP: po VTE prophylaxis: heparin Disposition: ICU today and potential floor tomorrow and can remain with hospitalists. Code Status: DNR Critical Care Time: 35min Elly Webb DO
[2017-05-30] MEDS: Cefepime(*) 2 GM in NS 0.9% 50 ML* 50 ML IVPB SCH (13:13)
[2017-05-30] MEDS: Albuterol/Ipratropium NEB.SOL* Albuterol 2.5 MG/Ipratropium 0.5 MG 3 ML INH SCH ×2 (19:45→22:42)
[2017-05-30] MEDS: Metoprolol Tartrate TAB* 50 mg PO SCH (20:43)
[2017-05-30] MEDS: Nicotine Patch Removal NOTE PATCH OFF SCH (21:30)
[2017-05-31] MEDS: Cefepime(*) 2 GM in NS 0.9% 50 ML* 50 ML IVPB SCH (00:30)
[2017-05-31] MEDS: Albuterol/Ipratropium NEB.SOL* Albuterol 2.5 MG/Ipratropium 0.5 MG 3 ML INH SCH ×3 (02:11→10:29)
[2017-05-31] MEDS: Morphine INJ* 2 MG/ML 1 ML CARPUJECT IV PRN (05:10)
[2017-05-31 05:35] LABS: Hematocrit 40 % (42-52); Hemoglobin 13.2 g/dl (14.0-18.0); Mean Corpuscular HGB Conc 33 g/dl (31-36); Mean Corpuscular Hemoglobin 32 pg (27-31); Mean Corpuscular Volume 96 fL (80-94); Mean Platelet Volume 9 um3 (7.4-10.4); Red Blood Count 4.12 10^6/ul (4.0-5.4); Red Cell Distribution Width 14 % (10.5-15); White Blood Count 11.4 10^3/ul (3.5-10.8)
[2017-05-31] MEDS: Heparin VIAL(*) 5000 UNITS/ML VIAL (FIVE THOUSAND) SUBCUT SCH ×3 (05:42→22:52)
[2017-05-31] MEDS: cefTRIAXone VIAL(*) 1,000 MG in NS 0.9% 50 ML* 50 ML IVPB SCH (08:26)
[2017-05-31] MEDS ORDERED: predniSONE TAB* 20 MG PO SCH (09:00)
[2017-05-31] MEDS: Metoprolol Tartrate TAB* 50 mg PO SCH ×2 (09:16→20:33)
[2017-05-31] MEDS: Nicotine PATCH 21 MG/24 HR* PATCH TRANSDERM SCH (09:17)
[2017-05-31] MEDS: Azithromycin IV(*) 500 MG in NS 0.9% 250 ML* 250 ML IVPB SCH (09:18)
--- NOTE | 2017-05-31 10:22 | PN ---
Subjective Date of Service: 05/31/17 Interval History: Pt is feeling a little better today. He states he is coughing quite a bit and bring up a lot of sputum. He is still getting quite SOB with movement. He states his O2 sats at home have been 80-84% recently. Objective Active Medications: Acetaminophen (Tylenol Tab*) 650 mg PO Q4H PRN PRN Reason: PAIN Albuterol (Ventolin 2.5 Mg/3 Ml Neb.Silvana*) 2.5 mg INH Q1H PRN PRN Reason: SOB/WHEEZING Albuterol/Ipratropium (Duoneb (Albuterol 2.5 Mg/Ipratropium 0.5 Mg)) 1 neb INH Q4H [facility] Last Admin: 05/31/17 06:29 Dose: 1 neb Heparin Sodium (Porcine) (Heparin Flush Picc/Ml/Cvc(*)) 1 - 3 ml FLUSH 0600, 1800 [facility] PRN Reason: Protocol Last Admin: 05/31/17 05:43 Dose: 2 ml Heparin Sodium (Porcine) (Heparin Vial(*)) 5,000 units SUBCUT Q8HR [facility] Last Admin: 05/31/17 05:42 Dose: 5,000 units Azithromycin 500 mg/ Sodium (Chloride) 250 mls @ 250 mls/hr IVPB Q24H [facility] Last Admin: 05/31/17 09:18 Dose: 250 mls/hr Ceftriaxone Sodium 1,000 mg/ (Sodium Chloride) 50 mls @ 200 mls/hr IVPB Q24H [facility] Last Admin: 05/31/17 08:26 Dose: 200 mls/hr Lorazepam (Ativan Inj*) 0.5 mg IV PUSH Q4H PRN PRN Reason: ANXIETY Last Admin: 05/30/17 03:57 Dose: 0.5 mg Metoprolol Tartrate (Lopressor Tab*) 50 mg PO Q12HR [facility] Last Admin: 05/31/17 09:16 Dose: 50 mg Morphine Sulfate (Morphine Inj (Syringe)*) 2 mg IV Q4H PRN PRN Reason: air hunger Last Admin: 05/31/17 05:10 Dose: 2 mg Nicotine (Nicotine Patch 21 Mg/24 Hr*) 1 patch TRANSDERM DAILY [facility] Last Admin: 05/31/17 09:17 Dose: 1 patch Pharmacy Profile Note (Nicotine Patch Removal Note*) 1 note PATCH OFF 2100 [facility] Last Admin: 05/30/17 21:30 Dose: 1 note Prednisone (Deltasone Tab*) 20 mg PO DAILY [facility] Vital Signs 05/30/17 05/30/17 05/30/17 10:30 11:00 11:30 Temperature Pulse Rate 102 103 106 Respiratory 25 17 31 Rate Blood Pressure 97/61 101/57 103/57 (mmHg) O2 Sat by Pulse 92 93 93 Oximetry 05/30/17 05/30/17 05/30/17 11:52 11:54 12:00 Temperature 98.5 F Pulse Rate 101 103 102 Respiratory 20 16 25 Rate Blood Pressure 93/60 103/58 101/59 (mmHg) O2 Sat by Pulse 92 91 92 Oximetry 05/30/17 05/30/17 05/30/17 12:30 13:00 13:30 Temperature Pulse Rate 102 101 105 Respiratory 30 28 22 Rate Blood Pressure 99/49 88/54 110/68 (mmHg) O2 Sat by Pulse 91 91 91 Oximetry 05/30/17 05/30/17 05/30/17 14:00 14:01 14:02 Temperature Pulse Rate 95 108 107 Respiratory 16 24 26 Rate Blood Pressure 75/57 (mmHg) O2 Sat by Pulse 88 89 92 Oximetry 05/30/17 05/30/17 05/30/17 14:38 15:00 15:30 Temperature Pulse Rate 99 98 99 Respiratory 27 30 29 Rate Blood Pressure 119/69 119/77 142/75 (mmHg) O2 Sat by Pulse 92 93 94 Oximetry 05/30/17 05/30/17 05/30/17 15:32 16:00 16:32 Temperature 98.6 F Pulse Rate 102 103 Respiratory 25 30 Rate Blood Pressure 124/72 128/108 (mmHg) O2 Sat by Pulse 95 88 Oximetry 05/30/17 05/30/17 05/30/17 16:44 17:00 17:07 Temperature Pulse Rate 103 100 Respiratory 34 31 39 Rate Blood Pressure 124/71 (mmHg) O2 Sat by Pulse 91 96 Oximetry 05/30/17 05/30/17 05/30/17 17:30 18:00 18:30 Temperature Pulse Rate 102 107 108 Respiratory 24 26 22 Rate Blood Pressure 119/75 113/82 121/71 (mmHg) O2 Sat by Pulse 92 95 93 Oximetry 05/30/17 05/30/17 05/30/17 19:00 19:30 20:00 Temperature 96.3 F Pulse Rate 113 108 105 Respiratory 32 28 30 Rate Blood Pressure 129/66 117/68 135/65 (mmHg) O2 Sat by Pulse 93 91 95 Oximetry 05/30/17 05/30/17 05/30/17 20:30 21:00 21:30 Temperature Pulse Rate 105 106 106 Respiratory 29 19 28 Rate Blood Pressure 121/70 111/63 120/71 (mmHg) O2 Sat by Pulse 94 94 94 Oximetry 05/30/17 05/30/17 05/30/17 22:00 22:04 22:27 Temperature Pulse Rate 102 98 Respiratory 22 24 25 Rate Blood Pressure 118/68 (mmHg) O2 Sat by Pulse 93 93 Oximetry 05/30/17 05/30/17 05/30/17 22:30 22:41 23:00 Temperature Pulse Rate 97 97 97 Respiratory 18 19 25 Rate Blood Pressure 115/65 110/64 (mmHg) O2 Sat by Pulse 94 96 92 Oximetry 05/30/17 05/31/17 05/31/17 23:30 00:00 00:30 Temperature 96.2 F Pulse Rate 97 94 91 Respiratory 24 10 24 Rate Blood Pressure 125/68 123/69 119/72 (mmHg) O2 Sat by Pulse 92 94 96 Oximetry 05/31/17 05/31/17 05/31/17 01:00 01:30 02:00 Temperature Pulse Rate 88 86 82 Respiratory 29 22 20 Rate Blood Pressure 132/75 113/67 111/64 (mmHg) O2 Sat by Pulse 98 94 94 Oximetry 05/31/17 05/31/17 05/31/17 02:12 02:30 03:00 Temperature Pulse Rate 82 82 80 Respiratory 18 19 21 Rate Blood Pressure 126/71 119/67 (mmHg) O2 Sat by Pulse 100 97 96 Oximetry 05/31/17 05/31/17 05/31/17 03:30 04:00 04:30 Temperature 98.5 F Pulse Rate 79 80 88 Respiratory 19 23 28 Rate Blood Pressure 109/63 116/67 102/70 (mmHg) O2 Sat by Pulse 95 95 95 Oximetry 05/31/17 05/31/17 05/31/17 05:00 05:06 05:10 Temperature Pulse Rate 80 84 Respiratory 23 18 24 Rate Blood Pressure 97/52 95/59 (mmHg) O2 Sat by Pulse 92 94 Oximetry 05/31/17 05/31/17 05/31/17 05:30 06:00 06:28 Temperature Pulse Rate 83 88 84 Respiratory 20 28 25 Rate Blood Pressure 110/63 109/62 (mmHg) O2 Sat by Pulse 93 94 94 Oximetry 05/31/17 05/31/17 05/31/17 06:31 07:00 07:24 Temperature 98.1 F Pulse Rate 89 75 Respiratory 19 20 Rate Blood Pressure 91/55 110/64 (mmHg) O2 Sat by Pulse 95 94 Oximetry 05/31/17 05/31/17 05/31/17 07:30 08:00 08:15 Temperature Pulse Rate 70 87 85 Respiratory 24 26 24 Rate Blood Pressure 134/75 110/67 (mmHg) O2 Sat by Pulse 96 92 95 Oximetry 05/31/17 08:30 Temperature Pulse Rate 87 Respiratory 22 Rate Blood Pressure 102/68 (mmHg) O2 Sat by Pulse 92 Oximetry Oxygen Devices in Use Now: Nasal Cannula - 5L Appearance: Middle aged male sitting up in bed, NAD Eyes: No Scleral Icterus Ears/Nose/Mouth/Throat: Mucous Membranes Moist Respiratory: Symmetrical Chest Expansion and Respiratory Effort, Clear to Auscultation - markedly diminished breath sounds in all lung proctor, no crackles heard Cardiovascular: NL Sounds; No Murmurs; No JVD, RRR, No Edema Abdominal: NL Sounds; No Tenderness; No Distention Extremities: No Clubbing, Cyanosis Skin: No Rash or Ulcers, No Nodules or Sclerosis Neurological: Alert and Oriented x 3 Result Diagrams: 05/31/17 05:15 05/30/17 04:09 Additional Lab and Data: Lab Results 05/29/17 05/29/17 05/29/17 Range/Units 07:25 07:25 07:25 WBC 13.2 H (3.5-10.8) 10^3/ul RBC 5.29 (4.0-5.4) 10^6/ul Hgb 16.9 (14.0-18.0) g/dl Hct 51 (42-52) % MCV 96 H (80-94) fL MCH 32 H (27-31) pg MCHC 34 (31-36) g/dl RDW 14 (10.5-15) % Plt Count 216 (150-450) 10^3/ul MPV 9 (7.4-10.4) um3 Immature Gran % (Auto) 8 (0-9) % Neut % (Auto) 74.5 (38-83) % Lymph % (Auto) 10.4 L (25-47) % [place] % (Auto) 14.4 H (1-9) % Eos % (Auto) 0.2 (0-6) % Baso % (Auto) 0.5 (0-2) % Absolute Neuts (auto) 9.8 H (1.5-7.7) 10^3/ul Absolute Lymphs (auto) 1.4 (1.0-4.8) 10^3/ul Absolute Monos (auto) 1.9 H (0-0.8) 10^3/ul Absolute Eos (auto) 0 (0-0.6) 10^3/ul Absolute Basos (auto) 0.1 (0-0.2) 10^3/ul Absolute Nucleated RBC 0.01 10^3/ul Neutrophils % 74 (38-83) % Band Neutrophils % 8 (0-8) % Lymphocytes % 8 L (25-47) % Reactive Lymphs % 2 (0-6) % Monocytes % 8 (0-13) % Nucleated RBC % 0.1 Normal RBC Morphology Normal (Normal) INR (Anticoag Therapy) (0.89-1.11) APTT (26.0-36.3) seconds Patient Temperature ABG pH (7.35-7.45) ABG pCO2 (35-45) mmHg ABG pO2 (80-100) mmHg ABG HCO3 (19-31) mmol/L ABG O2 Saturation (95-98) % ABG Base Excess (-2.0-2.0) Respiration Rate O2 Delivery Device Ventilator Type Vent Mode FiO2 Inspiratory Time PEEP Pressure Support Pressure Control EPAP IPAP BiPAP Sodium 135 (133-145) mmol/L Potassium 4.3 (3.5-5.0) mmol/L Chloride 97 L (101-111) mmol/L Carbon Dioxide 27 (22-32) mmol/L Anion Gap 11 (2-11) mmol/L BUN 22 (6-24) mg/dL Creatinine 1.24 H (0.67-1.17) mg/dL Est GFR ( Amer) 76.5 (>60) Est GFR (Non-Af Amer) 59.5 (>60) BUN/Creatinine Ratio 17.7 (8-20) Glucose 150 H (70-100) mg/dL Lactic Acid 2.7 H* (0.5-2.0) mmol/L Calcium 9.6 (8.6-10.3) mg/dL Total Bilirubin 1.30 H (0.2-1.0) mg/dL AST 23 (13-39) U/L ALT 20 (7-52) U/L Alkaline Phosphatase 99 (34-104) U/L Troponin I 0.03 (<0.04) ng/mL C-Reactive Protein 280.33 H (< 5.00) mg/L B-Natriuretic Peptide ( - 100) pg/mL Total Protein 8.1 (6.4-8.9) g/dL Albumin 4.7 (3.2-5.2) g/dL Globulin 3.4 (2-4) g/dL Albumin/Globulin Ratio 1.4 (1-3) 05/29/17 05/29/17 05/29/17 Range/Units 07:25 07:25 07:55 WBC (3.5-10.8) 10^3/ul RBC (4.0-5.4) 10^6/ul Hgb (14.0-18.0) g/dl Hct (42-52) % MCV (80-94) fL MCH (27-31) pg MCHC (31-36) g/dl RDW (10.5-15) % Plt Count (150-450) 10^3/ul MPV (7.4-10.4) um3 Immature Gran % (Auto) (0-9) % Neut % (Auto) (38-83) % Lymph % (Auto) (25-47) % [place] % (Auto) (1-9) % Eos % (Auto) (0-6) % Baso % (Auto) (0-2) % Absolute Neuts (auto) (1.5-7.7) 10^3/ul Absolute Lymphs (auto) (1.0-4.8) 10^3/ul Absolute Monos (auto) (0-0.8) 10^3/ul Absolute Eos (auto) (0-0.6) 10^3/ul Absolute Basos (auto) (0-0.2) 10^3/ul Absolute Nucleated RBC 10^3/ul Neutrophils % (38-83) % Band Neutrophils % (0-8) % Lymphocytes % (25-47) % Reactive Lymphs % (0-6) % Monocytes % (0-13) % Nucleated RBC % Normal RBC Morphology (Normal) INR (Anticoag Therapy) 1.15 H (0.89-1.11) APTT 42.7 H (26.0-36.3) seconds Patient Temperature Not Reportable ABG pH 7.15 L* (7.35-7.45) ABG pCO2 82 H* (35-45) mmHg ABG pO2 120 H (80-100) mmHg ABG HCO3 22.3 (19-31) mmol/L ABG O2 Saturation 97.5 (95-98) % ABG Base Excess -3.2 L (-2.0-2.0) Respiration Rate Not Reportable O2 Delivery Device neb Ventilator Type Not Reportable Vent Mode Not Reportable FiO2 Not Reportable Inspiratory Time Not Reportable PEEP Not Reportable Pressure Support Not Reportable Pressure Control Not Reportable EPAP Not Reportable IPAP Not Reportable BiPAP Not Reportable Sodium (133-145) mmol/L Potassium (3.5-5.0) mmol/L Chloride (101-111) mmol/L Carbon Dioxide (22-32) mmol/L Anion Gap (2-11) mmol/L BUN (6-24) mg/dL Creatinine (0.67-1.17) mg/dL Est GFR ( Amer) (>60) Est GFR (Non-Af Amer) (>60) BUN/Creatinine Ratio (8-20) Glucose (70-100) mg/dL Lactic Acid (0.5-2.0) mmol/L Calcium (8.6-10.3) mg/dL Total Bilirubin (0.2-1.0) mg/dL AST (13-39) U/L ALT (7-52) U/L Alkaline Phosphatase (34-104) U/L Troponin I (<0.04) ng/mL C-Reactive Protein (< 5.00) mg/L B-Natriuretic Peptide 118 H ( - 100) pg/mL Total Protein (6.4-8.9) g/dL Albumin (3.2-5.2) g/dL Globulin (2-4) g/dL Albumin/Globulin Ratio (1-3) Microbiology and Other Data: Microbiology 05/29/17 11:59 Legionella Urinary Antigen - Final Urine Negative Legionella Streptococcus pneumoniae Ag Screen - Final Negative S. pneumo Antigen 05/29/17 10:20 Nasal Screen MRSA (PCR)(EDMUND) - Final Nasal Mrsa Negative Assess/Plan/Problems-Billing Mr Tavares is a 61 yo M who has a h/o COPD not on home O2 and ongoing tobacco abuse who presented to the ER with c/o severe progressive SOB and was admitted for acute hypoxic and hypercarbic respiratory failure secondary to COPD exacerbation secondary to a RLL pneumonia with associated sepsis. - Patient Problems (1) Acute respiratory failure with hypoxia and hypercarbia Current Visit: Yes Status: Acute Code(s): J96.01 - ACUTE RESPIRATORY FAILURE WITH HYPOXIA; J96.02 - ACUTE RESPIRATORY FAILURE WITH HYPERCAPNIA SNOMED Code(s): 20341557 Comment: The aptient has been stable off BiPAP since yesterday AM. He did use the BiPAP overnight and may need to have this ordered for home on d/c. Continue supplemental O2. (2) Sepsis Current Visit: Yes Status: Acute Comment: On admission the patient was septic secondary to H influenzae pneumonia. His sepsis has now resolved. He is off fluids. Monitor. (3) Haemophilus influenzae pneumonia Current Visit: Yes Status: Acute Comment: The patient's sputum grew H influenzae. His Abx will be narrowed to just ceftriaxone. He will need 7-10 of Abx therapy. Will discuss with ID. I suspect tomorrow he can be transferred from the ICU to the medical floor. (4) COPD exacerbation Current Visit: Yes Status: Acute Code(s): J44.1 - CHRONIC OBSTRUCTIVE PULMONARY DISEASE W (ACUTE) EXACERBATION SNOMED Code(s): 737623478 Comment: Continue prednisone but wean slowly as his lung sounds are still markedly diminished. Continue frequent nebs. (5) HTN (hypertension) Current Visit: Yes Status: Acute Code(s): I10 - ESSENTIAL (PRIMARY) HYPERTENSION SNOMED Code(s): 95471181 Comment: BP remains under excellent control of the metoprolol. Will continue to monitor. (6) DVT prophylaxis Current Visit: Yes Status: Acute Code(s): SBX1559 - SNOMED Code(s): 683018904 Comment: SQ heparin (7) DNR (do not resuscitate) Current Visit: Yes Status: Acute
[2017-05-31] MEDS ORDERED: Spiriva Inhaler DEVICE* 1 EACH DEVICE SCH (11:00)
[2017-05-31] MEDS ORDERED: Spiriva Inhaler DEVICE* 1 EACH DEVICE INH SCH (11:00)
[2017-05-31] MEDS: Albuterol 2.5 MG/3 ML NEB.SOL* (0.083%) INH SCH ×3 (11:12→23:00)
--- NOTE | 2017-05-31 15:28 | CONS ---
PULMONARY CONSULTATION REPORT: DATE OF CONSULT: 05/31/17 CONSULTATION REQUESTED BY: Dr. Arguelles. REASON FOR CONSULTATION: To establish care for management of COPD and chronic respiratory failure. PRIMARY CARE PROVIDER: Dr. Farris. HISTORY OF PRESENT ILLNESS: Patient is a 61-year-old morbidly obese male, current smoker, with history of COPD, prior admission in 2012 for hypoxemic and hypercapnic respiratory failure requiring intubation, secondary to COPD exacerbation and also H. influenza pneumonia. Patient came into the emergency room for evaluation of worsening shortness of breath. Patient reportedly had cold-like symptoms, which progressed to worsening of shortness of breath with minimal movement. Patient also had significant cough, which was not productive in the beginning. Patient was noted to be bringing up thick yellow phlegm in the emergency room. He worsened since admission very quickly, was in significant respiratory distress and lethargic. Patient has refused intubation and was started on BiPAP in ICU. Patient has improved significantly with noninvasive ventilation. Patient is currently off BiPAP during the day and used last night. Pulmonary consultation was requested to establish care for management of COPD. Patient was seen and examined at bedside this morning. Patient denies recurrent bronchitis episodes. His last prednisone usage was one year ago. Patient continues to smoke at home. Patient has been smoking since age of 16 and is currently smoking a pack per day. He denied alcohol abuse. Patient continues to cough and is bringing out large amounts of phlegm. He is currently on 5 L of O2 supplementation. He is not in significant distress. His saturations have been in low 90s. He is being treated for acute COPD exacerbation, acute hypoxemic hypercapnic respiratory failure secondary to underlying COPD and right lower lobe pneumonia. Patient is on nebulizers at home. He was not able to afford his medications and only has albuterol inhaler to be used as needed and DuoNeb nebulizers. Patient also reports significant snoring at night and disruptive sleep, along with daytime fatigue. PAST MEDICAL HISTORY: 1. COPD, chronic bronchitis. 2. Ongoing tobacco abuse. 3. Morbid obesity. 4. Prior admission in 2013 for H. influenza pneumonia and hypoxemic respiratory failure and COPD exacerbation. PAST SURGICAL HISTORY: No surgeries as per patient's . MEDICATIONS AT HOME: 1. Lopressor 100 mg p.o. b.i.d. 2. Ipratropium 0.5 mg t.i.d. 3. Albuterol neb 2.5 mg q.6 hours p.r.n. 4. Ventolin 2 puffs q.4 hours. 5. Flovent 2 puffs b.i.d. ALLERGIES: No known drug allergies. FAMILY HISTORY: COPD in mother. Father with lung cancer. One brother who is living and has COPD. SOCIAL HISTORY: Patient is and his is the healthcare proxy. He is a former [employer] driver. He has been smoking since age of 16. Currently smoking half a pack per day. He does not drink alcohol. REVIEW OF SYSTEMS: All 14 systems reviewed and as per HPI. He denied any other complaints other than stated above and in addition he also reported having constipation for the past 3 days. PHYSICAL EXAMINATION: Patient is morbidly obese male, sitting up in bed, in no apparent distress. Vital Signs: Temperature 98.1, pulse 88 beats per minute, respiratory rate 22 to 24 per minute, O2 sat 95% on 5 L, blood pressure 102/68. HEENT: Pupils are equal and reactive to light, mucous membranes are moist. Mallampati class IV airway. Neck: Supple. No JVD. Pulmonary: Diminished air entry bilaterally, has wheeze to auscultation bilaterally, more on the left side. Cardiovascular: S1 and S2 present, heart sounds are distant. Abdomen: Soft, bowel sounds present, obese. Musculoskeletal: Normal range of motion of extremities. Skin: No rash on the upper body, erythematous rash in the lower leg on the left side. Lymphatic: No palpable cervical or supraclavicular adenopathy. Neurologic: Alert, awake, and oriented x3. No focal deficits. DIAGNOSTIC STUDIES/LAB DATA: WBC count 11.4, hemoglobin 13.2, hematocrit 40, platelet count 172. Blood gas on admission showed respiratory acidosis with pCO2 of 82. Most recent blood gas from 05/30/17 showed improvement in acidosis , with pCO2 of 64, pO2 of 68, and bicarb of 24.3, on 40% FiO2 and BiPAP of 14/8. Sodium 134, potassium 4.5, chloride 103, bicarb 28, BUN 18, creatinine 0.85, calcium 7.7, lactic acid normalized at 1.0. Hemoglobin A1c of 6.2. BNP 118. Influenza A and B negative. Negative for Legionella, strep pneumo, MRSA. Sputum cultures are positive for H. influenzae. Chest x-ray performed on 05/29/17 was personally reviewed by me, evidence of right basilar infiltrate consistent with pneumonia. IMPRESSION AND RECOMMENDATIONS: 61-year-old morbidly obese male, current smoker , with history of COPD, admitted with acute hypercapnic and hypoxemic respiratory failure secondary to acute COPD exacerbation secondary to right lower lobe pneumonia. Patient has required noninvasive ventilation. He is DNR and refused intubation. Patient improved with noninvasive ventilation, currently needing only at night. Will continue with BiPAP at night. He will be candidate for Trilogy at home and should be discharged with arrangements for Trilogy at home. Continue with supplemental oxygen, to be titrated down to maintain O2 in low 90s. CT chest from 2014 showed significant emphysema without suspicious nodules or masses. Patient qualifies for lung cancer screening to be done yearly He does have H. influenzae pneumonia and sepsis, which improved currently. He also has history of H. influenzae that has resulted in respiratory failure and intubation in 2012. He is currently on cefepime and azithromycin. Susceptibilities are pending from sputum cultures. Antibiotics to be tapered and to complete a 7 to 8-day course. WBC count trending down. Sepsis has resolved. COPD exacerbation is improving, continue with nebs, Flutter usage for secretions. Patient reports that he has been having difficulty obtaining inhalers. Will need health social work professor to help arrange for his inhaler He is at risk for obstructive sleep apnea; however, Trilogy will help manage his hypercapnic respiratory failure and also possible underlying obstructive sleep apnea and obesity hypoventilation syndrome. Rest of management as per primary team. Smoking cessation education and counseling was performed during today's visit that lasted 4 minutes. Patient is currently on nicotine supplementation. He is not willing to quit at this time. Will f/u as out pt D/w Dr Arguelles [id number]/CPS #: [id number] [facility]ITAL[facility]ov[facility]
[2017-05-31] MEDS: Mometasone/Formoter 200/5 MDI INH SCH (19:29)
[2017-05-31] MEDS: Nicotine Patch Removal NOTE PATCH OFF SCH (20:41)
[2017-05-31] MEDS: CMCS Melatonin (NF) 3 MG TAB PO PRN (22:43)
[2017-06-01] MEDS: Albuterol 2.5 MG/3 ML NEB.SOL* (0.083%) INH SCH ×4 (04:40→23:25)
[2017-06-01] MEDS: Heparin VIAL(*) 5000 UNITS/ML VIAL (FIVE THOUSAND) SUBCUT SCH ×3 (05:45→21:50)
[2017-06-01 06:17] LABS: Hematocrit 41 % (42-52); Hemoglobin 13.8 g/dl (14.0-18.0); Mean Corpuscular HGB Conc 34 g/dl (31-36); Mean Corpuscular Hemoglobin 32 pg (27-31); Mean Corpuscular Volume 96 fL (80-94); Mean Platelet Volume 8 um3 (7.4-10.4); Red Blood Count 4.26 10^6/ul (4.0-5.4); Red Cell Distribution Width 14 % (10.5-15); White Blood Count 10.7 10^3/ul (3.5-10.8)
[2017-06-01 06:22] LABS: Add Diff/Slide Review? Slide Review Added; Comments Flag Yes
[2017-06-01 06:33] LABS: BUN/Creatinine Ratio 31.5 (8-20); Calcium 8.2 mg/dL (8.6-10.3); EGFR African American 107.9 (>60); EGFR Non-African American 83.9 (>60); Potassium 4.2 mmol/L (3.5-5.0)
[2017-06-01] MEDS: Nicotine PATCH 21 MG/24 HR* PATCH TRANSDERM SCH (07:54)
[2017-06-01] MEDS: Tiotropium CAP.INH* CAP.INH/18 MCG (USE ORDER SET !) INH SCH (07:55)
[2017-06-01] MEDS: Metoprolol Tartrate TAB* 50 mg PO SCH ×2 (07:55→21:12)
[2017-06-01] MEDS: predniSONE TAB* 20 MG PO SCH (07:55)
[2017-06-01] MEDS: cefTRIAXone VIAL(*) 1,000 MG in NS 0.9% 50 ML* 50 ML IVPB SCH (07:57)
[2017-06-01] MEDS: Mometasone/Formoter 200/5 MDI INH SCH ×2 (08:07→19:19)
[2017-06-01] MEDS ORDERED: Polyethylene Glycol 3350* 17 GM PACKET PO PRN (08:49)
[2017-06-01] MEDS ORDERED: Alteplase (CATHFLO)* 2 MG VIAL IV ONE (08:49)
--- NOTE | 2017-06-01 08:57 | PN ---
Progress Note - Progress Note Date of Service: 06/01/17 - Pulm f/u note Note: Pt seen and examined at bedside. Pt sitting up in chair. Reports breathing is slightly better however continues to have significant productive cough. He also reports that he is tired of being sick with his breathing and wants to discuss when his arrives today regarding comfort measures Active Medications Generic Name Dose Route Start Last Admin Trade Name Freq PRN Reason Stop Dose Admin Acetaminophen 650 mg 05/29/17 09:26 Tylenol Tab* PO Q4H PRN PAIN Albuterol 2.5 mg 05/29/17 09:32 Ventolin 2.5 Mg/3 Ml Neb.Silvana* INH Q1H PRN SOB/WHEEZING Albuterol 2.5 mg 05/31/17 11:00 06/01/17 04:40 Ventolin 2.5 Mg/3 Ml Neb.Silvana* INH 2.5 mg Q6H [facility] Administration Device 1 each 05/31/17 11:00 Tiotropium Inhaler Device* INH .USE w/ SPIRIVA CAPS [facility] Heparin Sodium (Porcine) 1 - 3 ml 05/29/17 18:00 06/01/17 05:44 Heparin Flush Picc/Ml/Cvc(*) FLUSH 2 ml 0600,1800 [facility] Administration Protocol Heparin Sodium (Porcine) 5,000 units 05/30/17 06:00 06/01/17 05:45 Heparin Vial(*) SUBCUT 5,000 units Q8HR [facility] Administration Ceftriaxone Sodium 1,000 mg/ 50 mls @ 200 mls/hr 05/31/17 08:00 06/01/17 07: 57 Sodium Chloride IVPB 200 mls/hr Q24H [facility] Administration Lorazepam 0.5 mg 05/29/17 09:26 05/30/17 03:57 Ativan Inj* IV PUSH 0.5 mg Q4H PRN Administration ANXIETY Melatonin 3 mg 05/31/17 22:27 05/31/17 22:43 Melatonin (Nf) PO 3 mg BEDTIME PRN Administration Sleep Protocol Metoprolol Tartrate 50 mg 05/30/17 21:00 06/01/17 07:55 Lopressor Tab* PO 50 mg Q12HR [facility] Administration Mometasone Furoate/Formoterol Fumar 2 puff 05/31/17 21:00 06/01/17 08:07 Dulera 200/5 Mdi* INH 2 puff BID [facility] Administration Morphine Sulfate 2 mg 05/29/17 09:26 05/31/17 05:10 Morphine Inj (Syringe)* IV 2 mg Q4H PRN Administration air hunger Nicotine 1 patch 05/29/17 13:00 06/01/17 07:54 Nicotine Patch 21 Mg/24 Hr* TRANSDERM 1 patch DAILY [facility] Administration Pharmacy Profile Note 1 note 05/29/17 21:00 05/31/17 20:41 Nicotine Patch Removal Note* PATCH OFF 1 note 2100 [facility] Administration Prednisone 20 mg 06/01/17 09:00 06/01/17 07:55 Deltasone Tab* PO 20 mg DAILY [facility] Administration Tiotropium [place] 1 cap 06/01/17 09:00 06/01/17 07:55 Spiriva Cap.Inh* INH 1 cap DAILY [facility] Administration Vital Signs Temp Pulse Resp BP Pulse Ox 98.4 F 95 24 121/92 94 06/01/17 08:00 06/01/17 08:07 06/01/17 08:07 06/01/17 08:00 06/01/17 08:07 O/E: Pt in NAD, alert ,awake, sitting up in chair HEENT: PERRLA, No JVD Lungs: Diminished air entry b/l, decreased at bases, no wheeze CVS: S1, S2+, distant heart sounds Abd: Obese, BS+, distended, NT Ext: Edema +, Normal ROM Skin: No rash of extremities Neuro: No focal defecits Laboratory Results - last 24 hr 06/01/17 06/01/17 06:00 06:00 WBC 10.7 RBC 4.26 Hgb 13.8 L Hct 41 L MCV 96 H MCH 32 H MCHC 34 RDW 14 Plt Count 147 L MPV 8 Neut % (Auto) 69.2 Lymph % (Auto) 19.1 L [place] % (Auto) 10.9 H Eos % (Auto) 0.1 Baso % (Auto) 0.7 Absolute Neuts (auto) 7.4 Absolute Lymphs (auto) 2.1 Absolute Monos (auto) 1.2 H Absolute Eos (auto) 0 Absolute Basos (auto) 0.1 Absolute Nucleated RBC 0.01 Nucleated RBC % 0 Sodium 140 Potassium 4.2 Chloride 102 Carbon Dioxide 37 H Anion Gap 1 L BUN 29 H Creatinine 0.92 Est GFR ( Amer) 107.9 Est GFR (Non-Af Amer) 83.9 BUN/Creatinine Ratio 31.5 H Glucose 119 H Calcium 8.2 L I/R: 61 y o morbidly obese male, smoker with significant smoking history a/w worsening SOB found to be in acute hypercapnic and hypoxic resp failure secondary to Rt sided PNA, improving Pt responded well to NIPPV Will c/w BiPAP at night C/w bronchodilators Titrate FiO2 as tolerated, needing 8L currently On Rocephin On low dose prednisone Pt is DNR, doesnot want aggressive measures
--- NOTE | 2017-06-01 09:19 | PN ---
Subjective Date of Service: 06/01/17 Interval History: Pt is feeling about the same today. He continues to bring up thick sputum. He states it is difficult for him to use the flutter valve. He is discouraged about lack of progress. Objective Active Medications: Acetaminophen (Tylenol Tab*) 650 mg PO Q4H PRN PRN Reason: PAIN Albuterol (Ventolin 2.5 Mg/3 Ml Neb.Silvana*) 2.5 mg INH Q1H PRN PRN Reason: SOB/WHEEZING Albuterol (Ventolin 2.5 Mg/3 Ml Neb.Silvana*) 2.5 mg INH Q6H [facility] Last Admin: 06/01/17 04:40 Dose: 2.5 mg Device (Tiotropium Inhaler Device*) 1 each INH .USE w/ SPIRIVA CAPS [facility] Heparin Sodium (Porcine) (Heparin Flush Picc/Ml/Cvc(*)) 1 - 3 ml FLUSH 0600, 1800 [facility] PRN Reason: Protocol Last Admin: 06/01/17 05:44 Dose: 2 ml Heparin Sodium (Porcine) (Heparin Vial(*)) 5,000 units SUBCUT Q8HR [facility] Last Admin: 06/01/17 05:45 Dose: 5,000 units Ceftriaxone Sodium 1,000 mg/ (Sodium Chloride) 50 mls @ 200 mls/hr IVPB Q24H [facility] Last Admin: 06/01/17 07:57 Dose: 200 mls/hr Lorazepam (Ativan Inj*) 0.5 mg IV PUSH Q4H PRN PRN Reason: ANXIETY Last Admin: 05/30/17 03:57 Dose: 0.5 mg Melatonin (Melatonin (Nf)) 3 mg PO BEDTIME PRN; Protocol PRN Reason: Sleep Last Admin: 05/31/17 22:43 Dose: 3 mg Metoprolol Tartrate (Lopressor Tab*) 50 mg PO Q12HR [facility] Last Admin: 06/01/17 07:55 Dose: 50 mg Mometasone Furoate/Formoterol Fumar (Dulera 200/5 Mdi*) 2 puff INH BID [facility] Last Admin: 06/01/17 08:07 Dose: 2 puff Morphine Sulfate (Morphine Inj (Syringe)*) 2 mg IV Q4H PRN PRN Reason: air hunger Last Admin: 05/31/17 05:10 Dose: 2 mg Nicotine (Nicotine Patch 21 Mg/24 Hr*) 1 patch TRANSDERM DAILY [facility] Last Admin: 06/01/17 07:54 Dose: 1 patch Pharmacy Profile Note (Nicotine Patch Removal Note*) 1 note PATCH OFF 2100 [facility] Last Admin: 05/31/17 20:41 Dose: 1 note Polyethylene Glycol/Electrolytes (Miralax*) 17 gm PO DAILY PRN PRN Reason: CONSTIPATION Prednisone (Deltasone Tab*) 20 mg PO DAILY [facility] Last Admin: 06/01/17 07:55 Dose: 20 mg Tiotropium [place] (Spiriva Cap.Inh*) 1 cap INH DAILY [facility] Last Admin: 06/01/17 07:55 Dose: 1 cap Vital Signs 05/31/17 05/31/17 05/31/17 09:15 09:30 10:00 Temperature Pulse Rate 95 101 91 Respiratory 26 27 24 Rate Blood Pressure 118/65 114/67 114/64 (mmHg) O2 Sat by Pulse 95 92 91 Oximetry 05/31/17 05/31/17 05/31/17 10:29 10:30 11:00 Temperature Pulse Rate 89 88 85 Respiratory 19 22 27 Rate Blood Pressure 110/60 (mmHg) O2 Sat by Pulse 95 87 90 Oximetry 05/31/17 05/31/17 05/31/17 11:31 12:00 12:01 Temperature 98 F Pulse Rate 83 84 85 Respiratory 27 25 31 Rate Blood Pressure 96/87 (mmHg) O2 Sat by Pulse 93 92 92 Oximetry 05/31/17 05/31/17 05/31/17 12:30 13:00 13:31 Temperature Pulse Rate 84 84 101 Respiratory 34 34 24 Rate Blood Pressure 111/62 118/72 126/78 (mmHg) O2 Sat by Pulse 92 93 90 Oximetry 05/31/17 05/31/17 05/31/17 14:00 14:31 15:00 Temperature Pulse Rate 106 111 103 Respiratory 27 26 34 Rate Blood Pressure 137/91 110/72 110/59 (mmHg) O2 Sat by Pulse 89 85 89 Oximetry 05/31/17 05/31/17 05/31/17 15:31 15:59 16:00 Temperature 98.2 F Pulse Rate 104 105 Respiratory 19 30 Rate Blood Pressure 117/67 (mmHg) O2 Sat by Pulse 93 90 Oximetry 05/31/17 05/31/17 05/31/17 16:01 16:28 16:30 Temperature Pulse Rate 104 99 99 Respiratory 32 16 20 Rate Blood Pressure 130/77 120/79 (mmHg) O2 Sat by Pulse 93 94 91 Oximetry 05/31/17 05/31/17 05/31/17 17:00 17:30 18:00 Temperature Pulse Rate 102 102 123 Respiratory 31 24 26 Rate Blood Pressure 136/79 130/75 147/94 (mmHg) O2 Sat by Pulse 90 93 91 Oximetry 05/31/17 05/31/17 05/31/17 18:30 18:48 19:00 Temperature Pulse Rate 109 104 118 Respiratory 23 22 27 Rate Blood Pressure 118/74 118/74 124/91 (mmHg) O2 Sat by Pulse 89 88 87 Oximetry 05/31/17 05/31/17 05/31/17 19:30 19:38 20:00 Temperature Pulse Rate 105 105 103 Respiratory 16 22 25 Rate Blood Pressure 101/65 123/68 (mmHg) O2 Sat by Pulse 91 92 84 Oximetry 05/31/17 05/31/17 05/31/17 20:30 20:34 21:00 Temperature Pulse Rate 104 105 98 Respiratory 16 26 16 Rate Blood Pressure 101/67 112/65 (mmHg) O2 Sat by Pulse 96 97 98 Oximetry 05/31/17 05/31/17 05/31/17 21:01 21:13 21:30 Temperature 97.5 F Pulse Rate 104 96 Respiratory 17 19 Rate Blood Pressure 119/67 99/58 (mmHg) O2 Sat by Pulse 96 97 Oximetry 05/31/17 05/31/17 05/31/17 22:00 22:30 23:00 Temperature Pulse Rate 94 92 87 Respiratory 14 18 23 Rate Blood Pressure 102/60 92/57 97/61 (mmHg) O2 Sat by Pulse 98 97 97 Oximetry 05/31/17 05/31/17 05/31/17 23:02 23:30 23:35 Temperature Pulse Rate 84 84 82 Respiratory 27 25 27 Rate Blood Pressure 96/66 (mmHg) O2 Sat by Pulse 98 95 96 Oximetry 06/01/17 06/01/17 06/01/17 00:00 00:30 00:56 Temperature 98.5 F Pulse Rate 79 74 Respiratory 22 24 21 Rate Blood Pressure 104/62 105/70 (mmHg) O2 Sat by Pulse 93 92 Oximetry 06/01/17 06/01/17 06/01/17 01:00 01:30 02:00 Temperature Pulse Rate 76 75 77 Respiratory 27 26 30 Rate Blood Pressure 106/64 114/72 111/74 (mmHg) O2 Sat by Pulse 93 94 96 Oximetry 06/01/17 06/01/17 06/01/17 02:30 03:00 03:30 Temperature Pulse Rate 81 79 84 Respiratory 22 28 27 Rate Blood Pressure 106/69 117/69 110/73 (mmHg) O2 Sat by Pulse 97 95 96 Oximetry 06/01/17 06/01/17 06/01/17 04:00 04:30 04:45 Temperature Pulse Rate 77 84 91 Respiratory 25 28 30 Rate Blood Pressure 113/70 118/70 (mmHg) O2 Sat by Pulse 93 96 96 Oximetry 06/01/17 06/01/17 06/01/17 05:00 05:30 06:00 Temperature Pulse Rate 87 81 94 Respiratory 23 30 25 Rate Blood Pressure 106/65 126/73 (mmHg) O2 Sat by Pulse 96 97 96 Oximetry 06/01/17 06/01/17 06/01/17 06:30 07:00 07:33 Temperature Pulse Rate 91 87 95 Respiratory 17 25 24 Rate Blood Pressure 113/73 124/72 120/68 (mmHg) O2 Sat by Pulse 95 96 94 Oximetry 06/01/17 06/01/17 08:00 08:07 Temperature 98.4 F Pulse Rate 96 93 Respiratory 36 22 Rate Blood Pressure 121/92 (mmHg) O2 Sat by Pulse 94 94 Oximetry Oxygen Devices in Use Now: High Flow Nasal Cannula - 8L Appearance: Middle aged obese male sitting in a chair, eating breakfast, NAD Eyes: No Scleral Icterus Ears/Nose/Mouth/Throat: Mucous Membranes Moist Respiratory: Symmetrical Chest Expansion and Respiratory Effort, Clear to Auscultation - markedly diminished breath sounds in all lung fiedls Cardiovascular: NL Sounds; No Murmurs; No JVD, RRR, No Edema Abdominal: NL Sounds; No Tenderness; No Distention - obese Extremities: No Clubbing, Cyanosis Skin: No Rash or Ulcers, No Nodules or Sclerosis Neurological: Alert and Oriented x 3 Result Diagrams: 06/01/17 06:00 06/01/17 06:00 Additional Lab and Data: Lab Results 05/29/17 05/29/17 05/29/17 Range/Units 07:25 07:25 07:25 WBC 13.2 H (3.5-10.8) 10^3/ul RBC 5.29 (4.0-5.4) 10^6/ul Hgb 16.9 (14.0-18.0) g/dl Hct 51 (42-52) % MCV 96 H (80-94) fL MCH 32 H (27-31) pg MCHC 34 (31-36) g/dl RDW 14 (10.5-15) % Plt Count 216 (150-450) 10^3/ul MPV 9 (7.4-10.4) um3 Immature Gran % (Auto) 8 (0-9) % Neut % (Auto) 74.5 (38-83) % Lymph % (Auto) 10.4 L (25-47) % Mcpherson % (Auto) 14.4 H (1-9) % Eos % (Auto) 0.2 (0-6) % Baso % (Auto) 0.5 (0-2) % Absolute Neuts (auto) 9.8 H (1.5-7.7) 10^3/ul Absolute Lymphs (auto) 1.4 (1.0-4.8) 10^3/ul Absolute Monos (auto) 1.9 H (0-0.8) 10^3/ul Absolute Eos (auto) 0 (0-0.6) 10^3/ul Absolute Basos (auto) 0.1 (0-0.2) 10^3/ul Absolute Nucleated RBC 0.01 10^3/ul Neutrophils % 74 (38-83) % Band Neutrophils % 8 (0-8) % Lymphocytes % 8 L (25-47) % Reactive Lymphs % 2 (0-6) % Monocytes % 8 (0-13) % Nucleated RBC % 0.1 Normal RBC Morphology Normal (Normal) INR (Anticoag Therapy) (0.89-1.11) APTT (26.0-36.3) seconds Patient Temperature ABG pH (7.35-7.45) ABG pCO2 (35-45) mmHg ABG pO2 (80-100) mmHg ABG HCO3 (19-31) mmol/L ABG O2 Saturation (95-98) % ABG Base Excess (-2.0-2.0) Respiration Rate O2 Delivery Device Ventilator Type Vent Mode FiO2 Inspiratory Time PEEP Pressure Support Pressure Control EPAP IPAP BiPAP Sodium 135 (133-145) mmol/L Potassium 4.3 (3.5-5.0) mmol/L Chloride 97 L (101-111) mmol/L Carbon Dioxide 27 (22-32) mmol/L Anion Gap 11 (2-11) mmol/L BUN 22 (6-24) mg/dL Creatinine 1.24 H (0.67-1.17) mg/dL Est GFR ( Amer) 76.5 (>60) Est GFR (Non-Af Amer) 59.5 (>60) BUN/Creatinine Ratio 17.7 (8-20) Glucose 150 H (70-100) mg/dL Lactic Acid 2.7 H* (0.5-2.0) mmol/L Calcium 9.6 (8.6-10.3) mg/dL Total Bilirubin 1.30 H (0.2-1.0) mg/dL AST 23 (13-39) U/L ALT 20 (7-52) U/L Alkaline Phosphatase 99 (34-104) U/L Troponin I 0.03 (<0.04) ng/mL C-Reactive Protein 280.33 H (< 5.00) mg/L B-Natriuretic Peptide ( - 100) pg/mL Total Protein 8.1 (6.4-8.9) g/dL Albumin 4.7 (3.2-5.2) g/dL Globulin 3.4 (2-4) g/dL Albumin/Globulin Ratio 1.4 (1-3) 05/29/17 05/29/17 05/29/17 Range/Units 07:25 07:25 07:55 WBC (3.5-10.8) 10^3/ul RBC (4.0-5.4) 10^6/ul Hgb (14.0-18.0) g/dl Hct (42-52) % MCV (80-94) fL MCH (27-31) pg MCHC (31-36) g/dl RDW (10.5-15) % Plt Count (150-450) 10^3/ul MPV (7.4-10.4) um3 Immature Gran % (Auto) (0-9) % Neut % (Auto) (38-83) % Lymph % (Auto) (25-47) % Mcpherson % (Auto) (1-9) % Eos % (Auto) (0-6) % Baso % (Auto) (0-2) % Absolute Neuts (auto) (1.5-7.7) 10^3/ul Absolute Lymphs (auto) (1.0-4.8) 10^3/ul Absolute Monos (auto) (0-0.8) 10^3/ul Absolute Eos (auto) (0-0.6) 10^3/ul Absolute Basos (auto) (0-0.2) 10^3/ul Absolute Nucleated RBC 10^3/ul Neutrophils % (38-83) % Band Neutrophils % (0-8) % Lymphocytes % (25-47) % Reactive Lymphs % (0-6) % Monocytes % (0-13) % Nucleated RBC % Normal RBC Morphology (Normal) INR (Anticoag Therapy) 1.15 H (0.89-1.11) APTT 42.7 H (26.0-36.3) seconds Patient Temperature Not Reportable ABG pH 7.15 L* (7.35-7.45) ABG pCO2 82 H* (35-45) mmHg ABG pO2 120 H (80-100) mmHg ABG HCO3 22.3 (19-31) mmol/L ABG O2 Saturation 97.5 (95-98) % ABG Base Excess -3.2 L (-2.0-2.0) Respiration Rate Not Reportable O2 Delivery Device neb Ventilator Type Not Reportable Vent Mode Not Reportable FiO2 Not Reportable Inspiratory Time Not Reportable PEEP Not Reportable Pressure Support Not Reportable Pressure Control Not Reportable EPAP Not Reportable IPAP Not Reportable BiPAP Not Reportable Sodium (133-145) mmol/L Potassium (3.5-5.0) mmol/L Chloride (101-111) mmol/L Carbon Dioxide (22-32) mmol/L Anion Gap (2-11) mmol/L BUN (6-24) mg/dL Creatinine (0.67-1.17) mg/dL Est GFR ( Amer) (>60) Est GFR (Non-Af Amer) (>60) BUN/Creatinine Ratio (8-20) Glucose (70-100) mg/dL Lactic Acid (0.5-2.0) mmol/L Calcium (8.6-10.3) mg/dL Total Bilirubin (0.2-1.0) mg/dL AST (13-39) U/L ALT (7-52) U/L Alkaline Phosphatase (34-104) U/L Troponin I (<0.04) ng/mL C-Reactive Protein (< 5.00) mg/L B-Natriuretic Peptide 118 H ( - 100) pg/mL Total Protein (6.4-8.9) g/dL Albumin (3.2-5.2) g/dL Globulin (2-4) g/dL Albumin/Globulin Ratio (1-3) Microbiology and Other Data: Microbiology 05/29/17 11:59 Legionella Urinary Antigen - Final Urine Negative Legionella Streptococcus pneumoniae Ag Screen - Final Negative S. pneumo Antigen 05/29/17 10:20 Nasal Screen MRSA (PCR)(EDMUND) - Final Nasal Mrsa Negative Assess/Plan/Problems-Billing Mr Tavares is a 61 yo M who has a h/o COPD not on home O2 and ongoing tobacco abuse who presented to the ER with c/o severe progressive SOB and was admitted for acute hypoxic and hypercarbic respiratory failure secondary to COPD exacerbation secondary to a RLL pneumonia with associated sepsis. - Patient Problems (1) Acute respiratory failure with hypoxia and hypercarbia Current Visit: Yes Status: Acute Code(s): J96.01 - ACUTE RESPIRATORY FAILURE WITH HYPOXIA; J96.02 - ACUTE RESPIRATORY FAILURE WITH HYPERCAPNIA SNOMED Code(s): 89632424 Comment: Continue supplemental O2 during the day and BiPAP at night. Dr. Koenig saw the patient from pulmonary and felt that he would be a trilogy candidate on discharge. (2) Sepsis Current Visit: Yes Status: Acute Comment: On admission the patient was septic secondary to H influenzae pneumonia. His sepsis has now resolved. He is off fluids. Monitor. (3) Haemophilus influenzae pneumonia Current Visit: Yes Status: Acute Comment: Continue ceftriaxone. Today is D#-. As the patient is now on 8L O2 will hold off on transfering the patient to the floor today. I have encouraged the use of the flutter valve-I do not think the patient will be compliant with it. (4) COPD exacerbation Current Visit: Yes Status: Acute Code(s): J44.1 - CHRONIC OBSTRUCTIVE PULMONARY DISEASE W (ACUTE) EXACERBATION SNOMED Code(s): 355132941 Comment: Continue prednisone but wean slowly as his lung sounds are still markedly diminished. Continue frequent nebs. (5) HTN (hypertension) Current Visit: Yes Status: Acute Code(s): I10 - ESSENTIAL (PRIMARY) HYPERTENSION SNOMED Code(s): 66076632 Comment: BP remains under excellent control on 1/2 dose of metoprolol. Will continue to monitor. (6) DVT prophylaxis Current Visit: Yes Status: Acute Code(s): FAK5106 - SNOMED Code(s): 010782869 Comment: SQ heparin (7) DNR (do not resuscitate) Current Visit: Yes Status: Acute
[2017-06-01] MEDS: Nicotine Patch Removal NOTE PATCH OFF SCH (21:16)
[2017-06-01] MEDS: CMCS Melatonin (NF) 3 MG TAB PO PRN (23:08)
[2017-06-02] MEDS: Albuterol 2.5 MG/3 ML NEB.SOL* (0.083%) INH SCH (03:59)
[2017-06-02] MEDS: Heparin VIAL(*) 5000 UNITS/ML VIAL (FIVE THOUSAND) SUBCUT SCH ×3 (06:05→21:33)
[2017-06-02] MEDS: cefTRIAXone VIAL(*) 1,000 MG in NS 0.9% 50 ML* 50 ML IVPB SCH (06:05)
[2017-06-02] MEDS: Tiotropium CAP.INH* CAP.INH/18 MCG (USE ORDER SET !) INH SCH (07:22)
[2017-06-02] MEDS: Mometasone/Formoter 200/5 MDI INH SCH ×2 (07:23→21:37)
[2017-06-02] MEDS ORDERED: Albuterol/Ipratropium NEB.SOL* Albuterol 2.5 MG/Ipratropium 0.5 MG 3 ML INH PRN (07:40)
[2017-06-02] MEDS: Metoprolol Tartrate TAB* 50 mg PO SCH ×2 (08:47→21:33)
[2017-06-02] MEDS: predniSONE TAB* 20 MG PO SCH (08:47)
[2017-06-02] MEDS: Nicotine PATCH 21 MG/24 HR* PATCH TRANSDERM SCH (08:47)
[2017-06-02] MEDS: Acetaminophen TAB* 325 MG PO PRN ×2 (10:20→15:47)
--- NOTE | 2017-06-02 11:01 | PN ---
Subjective Date of Service: 06/02/17 Interval History: Pt states he had a difficult time using the BiPAP last night. He states for the majority of the evening he was off BiPAP. His breathing today feels about the same. He denies any pain. He had 2 BMs yesterday. Objective Active Medications: Acetaminophen (Tylenol Tab*) 650 mg PO Q4H PRN PRN Reason: PAIN Last Admin: 06/02/17 10:20 Dose: 650 mg Albuterol (Ventolin 2.5 Mg/3 Ml Neb.Silvana*) 2.5 mg INH Q1H PRN PRN Reason: SOB/WHEEZING Albuterol/Ipratropium (Duoneb (Albuterol 2.5 Mg/Ipratropium 0.5 Mg)) 1 neb INH Q6H PRN PRN Reason: SOB/WHEEZING Device (Tiotropium Inhaler Device*) 1 each INH .USE w/ SPIRIVA CAPS [facility] Heparin Sodium (Porcine) (Heparin Flush Picc/Ml/Cvc(*)) 1 - 3 ml FLUSH 0600, 1800 [facility] PRN Reason: Protocol Last Admin: 06/02/17 06:05 Dose: 2 ml Heparin Sodium (Porcine) (Heparin Vial(*)) 5,000 units SUBCUT Q8HR [facility] Last Admin: 06/02/17 06:05 Dose: 5,000 units Ceftriaxone Sodium 1,000 mg/ (Sodium Chloride) 50 mls @ 200 mls/hr IVPB Q24H [facility] Last Admin: 06/02/17 06:05 Dose: 200 mls/hr Lorazepam (Ativan Inj*) 0.5 mg IV PUSH Q4H PRN PRN Reason: ANXIETY Last Admin: 05/30/17 03:57 Dose: 0.5 mg Melatonin (Melatonin (Nf)) 3 mg PO BEDTIME PRN; Protocol PRN Reason: Sleep Last Admin: 06/01/17 23:08 Dose: 3 mg Metoprolol Tartrate (Lopressor Tab*) 50 mg PO Q12HR [facility] Last Admin: 06/02/17 08:47 Dose: 50 mg Mometasone Furoate/Formoterol Fumar (Dulera 200/5 Mdi*) 2 puff INH BID [facility] Last Admin: 06/02/17 07:23 Dose: 2 puff Morphine Sulfate (Morphine Inj (Syringe)*) 2 mg IV Q4H PRN PRN Reason: air hunger Last Admin: 05/31/17 05:10 Dose: 2 mg Nicotine (Nicotine Patch 21 Mg/24 Hr*) 1 patch TRANSDERM DAILY [facility] Last Admin: 06/02/17 08:47 Dose: 1 patch Pharmacy Profile Note (Nicotine Patch Removal Note*) 1 note PATCH OFF 2100 [facility] Last Admin: 06/01/17 21:16 Dose: Not Given Polyethylene Glycol/Electrolytes (Miralax*) 17 gm PO DAILY PRN PRN Reason: CONSTIPATION Prednisone (Deltasone Tab*) 20 mg PO DAILY [facility] Last Admin: 06/02/17 08:47 Dose: 20 mg Tiotropium [place] (Spiriva Cap.Inh*) 1 cap INH DAILY [facility] Last Admin: 06/02/17 07:22 Dose: 1 cap Vital Signs 06/01/17 06/01/17 06/01/17 11:00 11:02 11:30 Temperature Pulse Rate 97 98 96 Respiratory 28 33 27 Rate Blood Pressure 115/69 111/65 (mmHg) O2 Sat by Pulse 95 94 94 Oximetry 06/01/17 06/01/17 06/01/17 12:00 12:30 13:00 Temperature 98.5 F Pulse Rate 91 91 105 Respiratory 28 28 31 Rate Blood Pressure 124/76 118/73 (mmHg) O2 Sat by Pulse 98 93 94 Oximetry 06/01/17 06/01/17 06/01/17 13:01 13:31 14:00 Temperature Pulse Rate 102 107 108 Respiratory 31 27 28 Rate Blood Pressure 131/74 84/62 130/66 (mmHg) O2 Sat by Pulse 91 91 97 Oximetry 06/01/17 06/01/17 06/01/17 14:30 15:00 15:01 Temperature Pulse Rate 108 116 116 Respiratory 26 28 19 Rate Blood Pressure 122/79 119/77 (mmHg) O2 Sat by Pulse 98 91 91 Oximetry 06/01/17 06/01/17 06/01/17 15:30 16:00 16:14 Temperature 98.7 F Pulse Rate 113 104 109 Respiratory 30 29 17 Rate Blood Pressure 104/57 121/62 (mmHg) O2 Sat by Pulse 92 94 94 Oximetry 06/01/17 06/01/17 06/01/17 16:30 17:00 17:30 Temperature Pulse Rate 111 111 106 Respiratory 29 20 37 Rate Blood Pressure 101/58 105/53 (mmHg) O2 Sat by Pulse 94 96 93 Oximetry 06/01/17 06/01/17 06/01/17 18:00 18:01 18:30 Temperature Pulse Rate 115 117 114 Respiratory 31 22 38 Rate Blood Pressure 97/61 99/58 (mmHg) O2 Sat by Pulse 96 97 94 Oximetry 06/01/17 06/01/17 06/01/17 19:00 19:22 19:32 Temperature Pulse Rate 110 95 119 Respiratory 35 119 20 Rate Blood Pressure 125/62 106/50 (mmHg) O2 Sat by Pulse 94 20 93 Oximetry 06/01/17 06/01/17 06/01/17 19:56 20:00 20:30 Temperature 98.4 F Pulse Rate 112 108 102 Respiratory 30 26 29 Rate Blood Pressure 112/67 120/64 118/69 (mmHg) O2 Sat by Pulse 95 94 93 Oximetry 06/01/17 06/01/17 06/01/17 21:00 22:00 23:00 Temperature Pulse Rate 100 82 84 Respiratory 35 24 18 Rate Blood Pressure 121/70 121/69 79/57 (mmHg) O2 Sat by Pulse 98 95 92 Oximetry 06/01/17 06/01/17 06/01/17 23:06 23:15 23:25 Temperature Pulse Rate 82 82 80 Respiratory 18 29 27 Rate Blood Pressure 106/65 (mmHg) O2 Sat by Pulse 93 98 95 Oximetry 06/02/17 06/02/17 06/02/17 00:00 01:00 02:00 Temperature 98.2 F Pulse Rate 84 90 90 Respiratory 31 22 27 Rate Blood Pressure 108/59 92/59 (mmHg) O2 Sat by Pulse 96 93 92 Oximetry 06/02/17 06/02/17 06/02/17 03:00 03:59 04:00 Temperature 97.2 F Pulse Rate 93 Respiratory 26 26 24 Rate Blood Pressure 95/59 (mmHg) O2 Sat by Pulse 95 96 96 Oximetry 06/02/17 06/02/17 06/02/17 04:47 05:00 06:00 Temperature Pulse Rate 89 Respiratory 18 20 29 Rate Blood Pressure 99/62 114/69 (mmHg) O2 Sat by Pulse 97 95 95 Oximetry 06/02/17 06/02/17 06/02/17 07:00 08:00 09:00 Temperature Pulse Rate 99 103 102 Respiratory 19 23 33 Rate Blood Pressure 123/67 (mmHg) O2 Sat by Pulse 95 88 90 Oximetry 06/02/17 10:00 Temperature Pulse Rate 85 Respiratory 35 Rate Blood Pressure 122/77 (mmHg) O2 Sat by Pulse 89 Oximetry Oxygen Devices in Use Now: High Flow Nasal Cannula - 8L-92-95% Appearance: Middle aged male sitting up in a chair, drowsy but able to carry on a conversation, NAD Eyes: No Scleral Icterus Ears/Nose/Mouth/Throat: Mucous Membranes Moist Respiratory: Symmetrical Chest Expansion and Respiratory Effort, Clear to Auscultation - slightly improved breath sounds Cardiovascular: NL Sounds; No Murmurs; No JVD, RRR, - - trace LE edema Abdominal: NL Sounds; No Tenderness; No Distention Extremities: No Clubbing, Cyanosis Skin: No Rash or Ulcers, No Nodules or Sclerosis Neurological: Alert and Oriented x 3 Result Diagrams: 06/01/17 06:00 06/01/17 06:00 Additional Lab and Data: Lab Results 05/29/17 05/29/17 05/29/17 Range/Units 07:25 07:25 07:25 WBC 13.2 H (3.5-10.8) 10^3/ul RBC 5.29 (4.0-5.4) 10^6/ul Hgb 16.9 (14.0-18.0) g/dl Hct 51 (42-52) % MCV 96 H (80-94) fL MCH 32 H (27-31) pg MCHC 34 (31-36) g/dl RDW 14 (10.5-15) % Plt Count 216 (150-450) 10^3/ul MPV 9 (7.4-10.4) um3 Immature Gran % (Auto) 8 (0-9) % Neut % (Auto) 74.5 (38-83) % Lymph % (Auto) 10.4 L (25-47) % Bonner % (Auto) 14.4 H (1-9) % Eos % (Auto) 0.2 (0-6) % Baso % (Auto) 0.5 (0-2) % Absolute Neuts (auto) 9.8 H (1.5-7.7) 10^3/ul Absolute Lymphs (auto) 1.4 (1.0-4.8) 10^3/ul Absolute Monos (auto) 1.9 H (0-0.8) 10^3/ul Absolute Eos (auto) 0 (0-0.6) 10^3/ul Absolute Basos (auto) 0.1 (0-0.2) 10^3/ul Absolute Nucleated RBC 0.01 10^3/ul Neutrophils % 74 (38-83) % Band Neutrophils % 8 (0-8) % Lymphocytes % 8 L (25-47) % Reactive Lymphs % 2 (0-6) % Monocytes % 8 (0-13) % Nucleated RBC % 0.1 Normal RBC Morphology Normal (Normal) INR (Anticoag Therapy) (0.89-1.11) APTT (26.0-36.3) seconds Patient Temperature ABG pH (7.35-7.45) ABG pCO2 (35-45) mmHg ABG pO2 (80-100) mmHg ABG HCO3 (19-31) mmol/L ABG O2 Saturation (95-98) % ABG Base Excess (-2.0-2.0) Respiration Rate O2 Delivery Device Ventilator Type Vent Mode FiO2 Inspiratory Time PEEP Pressure Support Pressure Control EPAP IPAP BiPAP Sodium 135 (133-145) mmol/L Potassium 4.3 (3.5-5.0) mmol/L Chloride 97 L (101-111) mmol/L Carbon Dioxide 27 (22-32) mmol/L Anion Gap 11 (2-11) mmol/L BUN 22 (6-24) mg/dL Creatinine 1.24 H (0.67-1.17) mg/dL Est GFR ( Amer) 76.5 (>60) Est GFR (Non-Af Amer) 59.5 (>60) BUN/Creatinine Ratio 17.7 (8-20) Glucose 150 H (70-100) mg/dL Lactic Acid 2.7 H* (0.5-2.0) mmol/L Calcium 9.6 (8.6-10.3) mg/dL Total Bilirubin 1.30 H (0.2-1.0) mg/dL AST 23 (13-39) U/L ALT 20 (7-52) U/L Alkaline Phosphatase 99 (34-104) U/L Troponin I 0.03 (<0.04) ng/mL C-Reactive Protein 280.33 H (< 5.00) mg/L B-Natriuretic Peptide ( - 100) pg/mL Total Protein 8.1 (6.4-8.9) g/dL Albumin 4.7 (3.2-5.2) g/dL Globulin 3.4 (2-4) g/dL Albumin/Globulin Ratio 1.4 (1-3) 05/29/17 05/29/17 05/29/17 Range/Units 07:25 07:25 07:55 WBC (3.5-10.8) 10^3/ul RBC (4.0-5.4) 10^6/ul Hgb (14.0-18.0) g/dl Hct (42-52) % MCV (80-94) fL MCH (27-31) pg MCHC (31-36) g/dl RDW (10.5-15) % Plt Count (150-450) 10^3/ul MPV (7.4-10.4) um3 Immature Gran % (Auto) (0-9) % Neut % (Auto) (38-83) % Lymph % (Auto) (25-47) % Bonner % (Auto) (1-9) % Eos % (Auto) (0-6) % Baso % (Auto) (0-2) % Absolute Neuts (auto) (1.5-7.7) 10^3/ul Absolute Lymphs (auto) (1.0-4.8) 10^3/ul Absolute Monos (auto) (0-0.8) 10^3/ul Absolute Eos (auto) (0-0.6) 10^3/ul Absolute Basos (auto) (0-0.2) 10^3/ul Absolute Nucleated RBC 10^3/ul Neutrophils % (38-83) % Band Neutrophils % (0-8) % Lymphocytes % (25-47) % Reactive Lymphs % (0-6) % Monocytes % (0-13) % Nucleated RBC % Normal RBC Morphology (Normal) INR (Anticoag Therapy) 1.15 H (0.89-1.11) APTT 42.7 H (26.0-36.3) seconds Patient Temperature Not Reportable ABG pH 7.15 L* (7.35-7.45) ABG pCO2 82 H* (35-45) mmHg ABG pO2 120 H (80-100) mmHg ABG HCO3 22.3 (19-31) mmol/L ABG O2 Saturation 97.5 (95-98) % ABG Base Excess -3.2 L (-2.0-2.0) Respiration Rate Not Reportable O2 Delivery Device neb Ventilator Type Not Reportable Vent Mode Not Reportable FiO2 Not Reportable Inspiratory Time Not Reportable PEEP Not Reportable Pressure Support Not Reportable Pressure Control Not Reportable EPAP Not Reportable IPAP Not Reportable BiPAP Not Reportable Sodium (133-145) mmol/L Potassium (3.5-5.0) mmol/L Chloride (101-111) mmol/L Carbon Dioxide (22-32) mmol/L Anion Gap (2-11) mmol/L BUN (6-24) mg/dL Creatinine (0.67-1.17) mg/dL Est GFR ( Amer) (>60) Est GFR (Non-Af Amer) (>60) BUN/Creatinine Ratio (8-20) Glucose (70-100) mg/dL Lactic Acid (0.5-2.0) mmol/L Calcium (8.6-10.3) mg/dL Total Bilirubin (0.2-1.0) mg/dL AST (13-39) U/L ALT (7-52) U/L Alkaline Phosphatase (34-104) U/L Troponin I (<0.04) ng/mL C-Reactive Protein (< 5.00) mg/L B-Natriuretic Peptide 118 H ( - 100) pg/mL Total Protein (6.4-8.9) g/dL Albumin (3.2-5.2) g/dL Globulin (2-4) g/dL Albumin/Globulin Ratio (1-3) Microbiology and Other Data: Microbiology 05/29/17 11:59 Legionella Urinary Antigen - Final Urine Negative Legionella Streptococcus pneumoniae Ag Screen - Final Negative S. pneumo Antigen 05/29/17 10:20 Nasal Screen MRSA (PCR)(EDMUND) - Final Nasal Mrsa Negative Assess/Plan/Problems-Billing Mr Tavares is a 61 yo M who has a h/o COPD not on home O2 and ongoing tobacco abuse who presented to the ER with c/o severe progressive SOB and was admitted for acute hypoxic and hypercarbic respiratory failure secondary to COPD exacerbation secondary to a RLL pneumonia with associated sepsis. - Patient Problems (1) Acute respiratory failure with hypoxia and hypercarbia Current Visit: Yes Status: Acute Code(s): J96.01 - ACUTE RESPIRATORY FAILURE WITH HYPOXIA; J96.02 - ACUTE RESPIRATORY FAILURE WITH HYPERCAPNIA SNOMED Code(s): 85585437 Comment: Continue supplemental O2 during the day and BiPAP at night. Pt is drowsy this AM and I suspect his hypercarbia may be worse as he did not use BiPAP all night. He will go on BiPAP for a nap overnight. (2) Sepsis Current Visit: Yes Status: Acute Comment: On admission the patient was septic secondary to H influenzae pneumonia. His sepsis has now resolved. He is off fluids. Monitor. (3) Haemophilus influenzae pneumonia Current Visit: Yes Status: Acute Comment: Continue ceftriaxone. Today is D# /-10. As the patient is now on 8L O2-will try to wean the O2 down and aim for O2 sat of 89-92%. Continue pulmonary toilet as pt is still bringing up sputum. (4) COPD exacerbation Current Visit: Yes Status: Acute Code(s): J44.1 - CHRONIC OBSTRUCTIVE PULMONARY DISEASE W (ACUTE) EXACERBATION SNOMED Code(s): 590392970 Comment: Continue prednisone but wean slowly as his lung sounds are still markedly diminished. Continue frequent nebs. (5) HTN (hypertension) Current Visit: Yes Status: Acute Code(s): I10 - ESSENTIAL (PRIMARY) HYPERTENSION SNOMED Code(s): 19182708 Comment: BP remains under excellent control on 1/2 dose of metoprolol. Will continue to monitor. (6) DVT prophylaxis Current Visit: Yes Status: Acute Code(s): AXQ7104 - SNOMED Code(s): 575579346 Comment: SQ heparin (7) DNR (do not resuscitate) Current Visit: Yes Status: Acute
--- NOTE | 2017-06-02 15:10 | PN ---
Progress Note - Progress Note Date of Service: 06/02/17 - Pulm f/u note Note: Pt seen and examined at bedside. Pt sitting up in chair. FiO2 requirements have come down. Continues to have productive cough. Active Medications Generic Name Dose Route Start Last Admin Trade Name Freq PRN Reason Stop Dose Admin Acetaminophen 650 mg 05/29/17 09:26 06/02/17 10:20 Tylenol Tab* PO 650 mg Q4H PRN Administration PAIN Albuterol 2.5 mg 05/29/17 09:32 Ventolin 2.5 Mg/3 Ml Neb.Silvana* INH Q1H PRN SOB/WHEEZING Albuterol/Ipratropium 1 neb 06/02/17 07:40 Duoneb (Albuterol 2.5 Mg/Ipratropium 0.5 Mg) INH Q6H PRN SOB/WHEEZING Device 1 each 05/31/17 11:00 Tiotropium Inhaler Device* INH .USE w/ SPIRIVA CAPS [facility] Heparin Sodium (Porcine) 1 - 3 ml 05/29/17 18:00 06/02/17 06:05 Heparin Flush Picc/Ml/Cvc(*) FLUSH 2 ml 0600,1800 [facility] Administration Protocol Heparin Sodium (Porcine) 5,000 units 05/30/17 06:00 06/02/17 15:05 Heparin Vial(*) SUBCUT 5,000 units Q8HR [facility] Administration Ceftriaxone Sodium 1,000 mg/ 50 mls @ 200 mls/hr 05/31/17 08:00 06/02/17 06: 05 Sodium Chloride IVPB 200 mls/hr Q24H [facility] Administration Lorazepam 0.5 mg 05/29/17 09:26 05/30/17 03:57 Ativan Inj* IV PUSH 0.5 mg Q4H PRN Administration ANXIETY Melatonin 3 mg 05/31/17 22:27 06/01/17 23:08 Melatonin (Nf) PO 3 mg BEDTIME PRN Administration Sleep Protocol Metoprolol Tartrate 50 mg 05/30/17 21:00 06/02/17 08:47 Lopressor Tab* PO 50 mg Q12HR [facility] Administration Mometasone Furoate/Formoterol Fumar 2 puff 05/31/17 21:00 06/02/17 07:23 Dulera 200/5 Mdi* INH 2 puff BID [facility] Administration Morphine Sulfate 2 mg 05/29/17 09:26 05/31/17 05:10 Morphine Inj (Syringe)* IV 2 mg Q4H PRN Administration air hunger Nicotine 1 patch 05/29/17 13:00 06/02/17 08:47 Nicotine Patch 21 Mg/24 Hr* TRANSDERM 1 patch DAILY [facility] Administration Pharmacy Profile Note 1 note 05/29/17 21:00 06/01/17 21:16 Nicotine Patch Removal Note* PATCH OFF Not Given 2100 [facility] Polyethylene Glycol/Electrolytes 17 gm 06/01/17 08:49 Miralax* PO DAILY PRN CONSTIPATION Prednisone 20 mg 06/01/17 09:00 06/02/17 08:47 Deltasone Tab* PO 20 mg DAILY [facility] Administration Tiotropium [place] 1 cap 06/01/17 09:00 06/02/17 07:22 Spiriva Cap.Inh* INH 1 cap DAILY [facility] Administration Vital Signs Temp Pulse Resp BP Pulse Ox 97.4 F 105 31 118/80 89 06/02/17 12:00 06/02/17 15:00 06/02/17 15:00 06/02/17 14:01 06/02/17 15:00 O/E: Morbidly obese male in NAD, alert ,awake, sitting up in chair HEENT: PERRLA, No JVD Lungs: Diminished air entry b/l, decreased at bases, distant breath sounds, no wheeze CVS: S1, S2+, distant heart sounds Abd: Obese, BS+, non-distended Ext: Edema +, Normal ROM Skin: No rash of extremities Neuro: No focal defecits No new labs I/R: 61 y o morbidly obese male, smoker with significant smoking history a/w worsening SOB found to be in acute hypercapnic and hypoxic resp failure secondary to Rt sided PNA, improving Pt responded well to NIPPV Will c/w BiPAP at night and will be d/c ed with BiPAP at night C/w bronchodilators Down to 5L O2 On Rocephin, completed Zithromax On low dose prednisone Pt is DNR, doesnot want aggressive measures
[2017-06-03] MEDS: Nicotine Patch Removal NOTE PATCH OFF SCH ×2 (00:45→21:49)
[2017-06-03] MEDS: Heparin VIAL(*) 5000 UNITS/ML VIAL (FIVE THOUSAND) SUBCUT SCH ×3 (05:19→21:39)
[2017-06-03] MEDS: predniSONE TAB* 20 MG PO SCH (08:46)
[2017-06-03] MEDS: cefTRIAXone VIAL(*) 1,000 MG in NS 0.9% 50 ML* 50 ML IVPB SCH (08:46)
[2017-06-03] MEDS: Metoprolol Tartrate TAB* 50 mg PO SCH ×2 (08:50→21:38)
[2017-06-03] MEDS: Nicotine PATCH 21 MG/24 HR* PATCH TRANSDERM SCH (08:51)
[2017-06-03] MEDS: Mometasone/Formoter 200/5 MDI INH SCH ×2 (09:36→21:23)
[2017-06-03] MEDS: Tiotropium CAP.INH* CAP.INH/18 MCG (USE ORDER SET !) INH SCH (09:36)
[2017-06-03] MEDS ORDERED: Morphine INJ* 4 MG/ML 1 ML CARPUJECT IV PRN (10:09)
--- NOTE | 2017-06-03 15:06 | PN ---
Subjective Date of Service: 06/03/17 Interval History: Patient continues on salter at 5L. Has productive cough. Tachycardic when up and moving. He states that today feels like he is close to his baseline but states that he is getting used to his new normal. Family History: Unchanged from Admission Social History: Unchanged from Admission Past Medical History: Unchanged from Admission Objective Active Medications: Acetaminophen (Tylenol Tab*) 650 mg PO Q4H PRN Albuterol (Ventolin 2.5 Mg/3 Ml Neb.Silvana*) 2.5 mg INH Q1H PRN Albuterol/Ipratropium (Duoneb (Albuterol 2.5 Mg/Ipratropium 0.5 Mg)) 1 neb INH Q6H PRN Device (Tiotropium Inhaler Device*) 1 each INH .USE w/ SPIRIVA CAPS [facility] Heparin Sodium (Porcine) (Heparin Flush Picc/Ml/Cvc(*)) 1 - 3 ml FLUSH 0600, 1800 [facility] Heparin Sodium (Porcine) (Heparin Vial(*)) 5,000 units SUBCUT Q8HR [facility] Ceftriaxone Sodium 1,000 mg/ (Sodium Chloride) 50 mls @ 200 mls/hr IVPB Q24H [facility] Lorazepam (Ativan Inj*) 0.5 mg IV PUSH Q4H PRN Melatonin (Melatonin (Nf)) 3 mg PO BEDTIME PRN; Protocol Metoprolol Tartrate (Lopressor Tab*) 50 mg PO Q12HR [facility] Mometasone Furoate/Formoterol Fumar (Dulera 200/5 Mdi*) 2 puff INH BID [facility] Morphine Sulfate (Morphine Inj (Syringe)*) 2 mg IV Q4H PRN Nicotine (Nicotine Patch 21 Mg/24 Hr*) 1 patch TRANSDERM DAILY [facility] Pharmacy Profile Note (Nicotine Patch Removal Note*) 1 note PATCH OFF 2100 [facility] Polyethylene Glycol/Electrolytes (Miralax*) 17 gm PO DAILY PRN Prednisone (Deltasone Tab*) 20 mg PO DAILY [facility] Tiotropium [place] (Spiriva Cap.Inh*) 1 cap INH DAILY [facility] Vital Signs 06/02/17 06/02/17 06/02/17 15:48 16:00 17:00 Temperature 97.6 F Pulse Rate 111 105 Respiratory 28 32 30 Rate Blood Pressure 107/65 (mmHg) O2 Sat by Pulse 91 91 Oximetry 09/07/0906/02/17 06/02/17 18:00 18:01 19:00 Temperature Pulse Rate 118 116 109 Respiratory 30 31 27 Rate Blood Pressure 72/41 (mmHg) O2 Sat by Pulse 81 89 93 Oximetry 06/02/17 06/02/17 06/02/17 20:00 21:00 22:00 Temperature 97.2 F Pulse Rate 112 105 98 Respiratory 20 32 29 Rate Blood Pressure 118/63 137/76 (mmHg) O2 Sat by Pulse 89 93 96 Oximetry 06/02/17 06/02/17 06/03/17 23:00 23:01 00:00 Temperature 97.2 F Pulse Rate 100 94 81 Respiratory 31 28 19 Rate Blood Pressure 116/77 (mmHg) O2 Sat by Pulse 94 94 94 Oximetry 06/03/17 06/03/17 06/03/17 01:00 02:00 03:00 Temperature Pulse Rate 72 84 92 Respiratory 23 27 24 Rate Blood Pressure 112/69 (mmHg) O2 Sat by Pulse 91 92 94 Oximetry 06/03/17 06/03/17 06/03/17 04:00 04:18 05:00 Temperature 96.3 F Pulse Rate 92 86 76 Respiratory 24 30 23 Rate Blood Pressure 111/71 (mmHg) O2 Sat by Pulse 91 93 97 Oximetry 06/03/17 06/03/17 06/03/17 06:00 07:00 08:00 Temperature Pulse Rate 91 94 110 Respiratory 27 21 30 Rate Blood Pressure 101/62 83/48 (mmHg) O2 Sat by Pulse 95 94 93 Oximetry 06/03/17 06/03/17 06/03/17 08:35 08:44 08:48 Temperature Pulse Rate 108 105 Respiratory 28 26 30 Rate Blood Pressure 100/65 106/68 (mmHg) O2 Sat by Pulse 88 93 Oximetry 06/03/17 06/03/17 06/03/17 09:00 09:07 10:00 Temperature Pulse Rate 113 115 88 Respiratory 30 28 27 Rate Blood Pressure 94/69 105/60 (mmHg) O2 Sat by Pulse 85 85 96 Oximetry 06/03/17 06/03/17 06/03/17 10:32 10:47 10:56 Temperature 97.5 F Pulse Rate 94 Respiratory 22 23 Rate Blood Pressure (mmHg) O2 Sat by Pulse 94 Oximetry 06/03/17 06/03/17 06/03/17 11:00 11:40 12:00 Temperature Pulse Rate 88 94 Respiratory 28 20 27 Rate Blood Pressure (mmHg) O2 Sat by Pulse 92 90 Oximetry 06/03/17 06/03/17 06/03/17 12:01 12:11 13:00 Temperature Pulse Rate 92 98 Respiratory 27 32 26 Rate Blood Pressure 104/71 (mmHg) O2 Sat by Pulse 91 92 Oximetry 06/03/17 06/03/17 06/03/17 13:40 13:44 13:52 Temperature 98.0 F Pulse Rate 107 Respiratory 30 33 Rate Blood Pressure 110/73 (mmHg) O2 Sat by Pulse 93 Oximetry 06/03/17 06/03/17 06/03/17 14:00 14:01 14:18 Temperature Pulse Rate 111 111 Respiratory 35 35 30 Rate Blood Pressure 124/78 (mmHg) O2 Sat by Pulse 94 93 Oximetry Oxygen Devices in Use Now: High Flow Nasal Cannula - 8L-92-95% Appearance: sitting up in chair, NAD Eyes: No Scleral Icterus, PERRLA Ears/Nose/Mouth/Throat: NL Teeth, Lips, Gums, Mucous Membranes Moist Neck: NL Appearance and Movements; NL JVP Respiratory: Symmetrical Chest Expansion and Respiratory Effort, - - decreased at bases Cardiovascular: NL Sounds; No Murmurs; No JVD Abdominal: NL Sounds; No Tenderness; No Distention Extremities: No Edema Skin: No Rash or Ulcers Neurological: Alert and Oriented x 3, NL Muscle Strength and Tone Nutrition: Taking PO's Result Diagrams: 06/01/17 06:00 06/01/17 06:00 Assess/Plan/Problems-Billing Mr Tavares is a 61 y/o M who has a h/o COPD not on home O2 and ongoing tobacco abuse who presented to the ER with c/o severe progressive SOB and was admitted for acute hypoxic and hypercarbic respiratory failure secondary to COPD exacerbation secondary to a RLL pneumonia with associated sepsis. - Patient Problems (1) Acute respiratory failure with hypoxia and hypercarbia Comment: Continue supplemental O2 during the day and BiPAP at night. Although mask uncomfortable patient wore BiPAP last night. Will need Triology at discharge. (2) COPD exacerbation Comment: Continue prednisone at 20mg. Continue frequent nebs. (3) HTN (hypertension) Comment: Controlled. Continue 1/2 dose of metoprolol. (4) Haemophilus influenzae pneumonia Comment: Continue ceftriaxone. Today is D#6/7-10. Patient down to 5L this AM. Wean to sat 88-92%. Continue pulmonary toilet. Patient can pull 2L on IS. (5) Sepsis Comment: On admission the patient was septic secondary to H influenzae pneumonia. Sepsis resolved. (6) DVT prophylaxis Comment: SQ heparin (7) DNR (do not resuscitate) Status and Disposition: Stable to transfer to floor.
[2017-06-04] MEDS: Heparin VIAL(*) 5000 UNITS/ML VIAL (FIVE THOUSAND) SUBCUT SCH ×3 (05:39→21:46)
--- NOTE | 2017-06-04 07:59 | PN ---
Subjective Date of Service: 06/04/17 Interval History: No new c/o. Tolerated BIPAP some of the time. Hasn't walked in the so yet. Cough with dark sputum. Appetite OK. No bowel c/o. Family History: Unchanged from Admission Social History: Unchanged from Admission Past Medical History: Unchanged from Admission Objective Active Medications: Acetaminophen (Tylenol Tab*) 650 mg PO Q4H PRN PRN Reason: PAIN Last Admin: 06/02/17 15:47 Dose: 650 mg Albuterol (Ventolin 2.5 Mg/3 Ml Neb.Silvana*) 2.5 mg INH Q1H PRN PRN Reason: SOB/WHEEZING Albuterol/Ipratropium (Duoneb (Albuterol 2.5 Mg/Ipratropium 0.5 Mg)) 1 neb INH Q6H PRN PRN Reason: SOB/WHEEZING Device (Tiotropium Inhaler Device*) 1 each INH .USE w/ SPIRIVA CAPS [facility] Heparin Sodium (Porcine) (Heparin Flush Picc/Ml/Cvc(*)) 1 - 3 ml FLUSH 0600, 1800 [facility] PRN Reason: Protocol Last Admin: 06/04/17 05:39 Dose: 3 ml Heparin Sodium (Porcine) (Heparin Vial(*)) 5,000 units SUBCUT Q8HR [facility] Last Admin: 06/04/17 05:39 Dose: 5,000 units Ceftriaxone Sodium 1,000 mg/ (Sodium Chloride) 50 mls @ 200 mls/hr IVPB Q24H [facility] Last Admin: 06/03/17 08:46 Dose: 200 mls/hr Metoprolol Tartrate (Lopressor Tab*) 50 mg PO Q12HR [facility] Last Admin: 06/03/17 21:38 Dose: 50 mg Mometasone Furoate/Formoterol Fumar (Dulera 200/5 Mdi*) 2 puff INH BID [facility] Last Admin: 06/03/17 21:23 Dose: Not Given Nicotine (Nicotine Patch 14 Mg/24 Hr*) 1 patch TRANSDERM DAILY [facility] Pharmacy Profile Note (Nicotine Patch Removal Note*) 1 note PATCH OFF 2100 [facility] Last Admin: 06/03/17 21:49 Dose: 1 note Polyethylene Glycol/Electrolytes (Miralax*) 17 gm PO DAILY PRN PRN Reason: CONSTIPATION Prednisone (Deltasone Tab*) 20 mg PO DAILY [facility] Last Admin: 06/03/17 08:46 Dose: 20 mg Tiotropium [place] (Spiriva Cap.Inh*) 1 cap INH DAILY [facility] Last Admin: 06/03/17 09:36 Dose: 1 cap Vital Signs 06/03/17 06/03/17 06/03/17 08:00 08:35 08:44 Temperature Pulse Rate 110 108 Respiratory 30 28 26 Rate Blood Pressure 83/48 100/65 (mmHg) O2 Sat by Pulse 93 88 Oximetry 06/03/17 06/03/17 06/03/17 08:48 09:00 09:07 Temperature Pulse Rate 105 113 115 Respiratory 30 30 28 Rate Blood Pressure 106/68 94/69 (mmHg) O2 Sat by Pulse 93 85 85 Oximetry 06/03/17 06/03/17 06/03/17 10:00 10:32 10:47 Temperature Pulse Rate 88 94 Respiratory 27 22 23 Rate Blood Pressure 105/60 (mmHg) O2 Sat by Pulse 96 94 Oximetry 06/03/17 06/03/17 06/03/17 10:56 11:00 11:40 Temperature 97.5 F Pulse Rate 88 Respiratory 28 20 Rate Blood Pressure (mmHg) O2 Sat by Pulse 92 Oximetry 06/03/17 06/03/17 06/03/17 12:00 12:01 12:11 Temperature Pulse Rate 94 92 Respiratory 27 27 32 Rate Blood Pressure 104/71 (mmHg) O2 Sat by Pulse 90 91 Oximetry 06/03/17 06/03/17 06/03/17 13:00 13:40 13:44 Temperature 98.0 F Pulse Rate 98 Respiratory 26 30 Rate Blood Pressure (mmHg) O2 Sat by Pulse 92 Oximetry 06/03/17 06/03/17 06/03/17 13:52 14:00 14:01 Temperature Pulse Rate 107 111 111 Respiratory 33 35 35 Rate Blood Pressure 110/73 124/78 (mmHg) O2 Sat by Pulse 93 94 93 Oximetry 06/03/17 06/03/17 06/03/17 14:18 15:00 15:01 Temperature Pulse Rate 118 115 Respiratory 30 21 18 Rate Blood Pressure 103/75 (mmHg) O2 Sat by Pulse 92 92 Oximetry 06/03/17 06/03/17 06/03/17 15:09 16:00 16:01 Temperature 97.9 F Pulse Rate 119 129 Respiratory 30 32 37 Rate Blood Pressure 116/87 (mmHg) O2 Sat by Pulse 88 88 Oximetry 06/03/17 06/03/17 06/03/17 16:21 17:00 17:39 Temperature Pulse Rate 112 Respiratory 23 27 23 Rate Blood Pressure 105/64 (mmHg) O2 Sat by Pulse 97 Oximetry 06/03/17 06/03/17 06/03/17 18:00 18:28 19:42 Temperature 97.9 F Pulse Rate 121 117 Respiratory 20 25 20 Rate Blood Pressure 114/74 106/70 (mmHg) O2 Sat by Pulse 93 99 Oximetry 06/03/17 06/03/17 06/03/17 20:00 21:00 22:00 Temperature Pulse Rate Respiratory 20 20 20 Rate Blood Pressure (mmHg) O2 Sat by Pulse Oximetry 06/03/17 06/03/17 06/04/17 23:00 23:52 00:00 Temperature 98.1 F Pulse Rate 88 Respiratory 20 20 20 Rate Blood Pressure 106/72 (mmHg) O2 Sat by Pulse 94 Oximetry 06/04/17 06/04/17 06/04/17 01:00 02:00 02:12 Temperature Pulse Rate Respiratory 20 20 20 Rate Blood Pressure (mmHg) O2 Sat by Pulse Oximetry 06/04/17 06/04/17 06/04/17 04:00 04:07 05:00 Temperature 97.4 F Pulse Rate 97 Respiratory 20 20 20 Rate Blood Pressure 103/68 (mmHg) O2 Sat by Pulse 96 Oximetry 06/04/17 06/04/17 05:30 06:12 Temperature Pulse Rate Respiratory 20 20 Rate Blood Pressure (mmHg) O2 Sat by Pulse Oximetry Oxygen Devices in Use Now: Nasal Cannula - 8L-92-95% Appearance: Alert, partly up in bed. In fair spirits. Looks comfortable but tacchypneic. Eyes: No Scleral Icterus Neck: NL Appearance and Movements; NL JVP, No Thyroid Enlargement, Masses Respiratory: Symmetrical Chest Expansion and Respiratory Effort, Clear to Percussion, - - Diminshed BS BL. Needs 2-3 breaths per sentence. Extremities: No Edema, No Clubbing, Cyanosis, - Skin: No Rash or Ulcers, No Nodules or Sclerosis, - Neurological: Alert and Oriented x 3, NL Sensation Result Diagrams: 06/01/17 06:00 06/01/17 06:00 Additional Lab and Data: Lab Results 0905/29/17 05/29/17 Range/Units 07:25 07:25 07:25 WBC 13.2 H (3.5-10.8) 10^3/ul RBC 5.29 (4.0-5.4) 10^6/ul Hgb 16.9 (14.0-18.0) g/dl Hct 51 (42-52) % MCV 96 H (80-94) fL MCH 32 H (27-31) pg MCHC 34 (31-36) g/dl RDW 14 (10.5-15) % Plt Count 216 (150-450) 10^3/ul MPV 9 (7.4-10.4) um3 Immature Gran % (Auto) 8 (0-9) % Neut % (Auto) 74.5 (38-83) % Lymph % (Auto) 10.4 L (25-47) % [place] % (Auto) 14.4 H (1-9) % Eos % (Auto) 0.2 (0-6) % Baso % (Auto) 0.5 (0-2) % Absolute Neuts (auto) 9.8 H (1.5-7.7) 10^3/ul Absolute Lymphs (auto) 1.4 (1.0-4.8) 10^3/ul Absolute Monos (auto) 1.9 H (0-0.8) 10^3/ul Absolute Eos (auto) 0 (0-0.6) 10^3/ul Absolute Basos (auto) 0.1 (0-0.2) 10^3/ul Absolute Nucleated RBC 0.01 10^3/ul Neutrophils % 74 (38-83) % Band Neutrophils % 8 (0-8) % Lymphocytes % 8 L (25-47) % Reactive Lymphs % 2 (0-6) % Monocytes % 8 (0-13) % Nucleated RBC % 0.1 Normal RBC Morphology Normal (Normal) INR (Anticoag Therapy) (0.89-1.11) APTT (26.0-36.3) seconds Patient Temperature ABG pH (7.35-7.45) ABG pCO2 (35-45) mmHg ABG pO2 (80-100) mmHg ABG HCO3 (19-31) mmol/L ABG O2 Saturation (95-98) % ABG Base Excess (-2.0-2.0) Respiration Rate O2 Delivery Device Ventilator Type Vent Mode FiO2 Inspiratory Time PEEP Pressure Support Pressure Control EPAP IPAP BiPAP Sodium 135 (133-145) mmol/L Potassium 4.3 (3.5-5.0) mmol/L Chloride 97 L (101-111) mmol/L Carbon Dioxide 27 (22-32) mmol/L Anion Gap 11 (2-11) mmol/L BUN 22 (6-24) mg/dL Creatinine 1.24 H (0.67-1.17) mg/dL Est GFR ( Amer) 76.5 (>60) Est GFR (Non-Af Amer) 59.5 (>60) BUN/Creatinine Ratio 17.7 (8-20) Glucose 150 H (70-100) mg/dL Lactic Acid 2.7 H* (0.5-2.0) mmol/L Calcium 9.6 (8.6-10.3) mg/dL Total Bilirubin 1.30 H (0.2-1.0) mg/dL AST 23 (13-39) U/L ALT 20 (7-52) U/L Alkaline Phosphatase 99 (34-104) U/L Troponin I 0.03 (<0.04) ng/mL C-Reactive Protein 280.33 H (< 5.00) mg/L B-Natriuretic Peptide ( - 100) pg/mL Total Protein 8.1 (6.4-8.9) g/dL Albumin 4.7 (3.2-5.2) g/dL Globulin 3.4 (2-4) g/dL Albumin/Globulin Ratio 1.4 (1-3) 05/29/17 05/29/17 05/29/17 Range/Units 07:25 07:25 07:55 WBC (3.5-10.8) 10^3/ul RBC (4.0-5.4) 10^6/ul Hgb (14.0-18.0) g/dl Hct (42-52) % MCV (80-94) fL MCH (27-31) pg MCHC (31-36) g/dl RDW (10.5-15) % Plt Count (150-450) 10^3/ul MPV (7.4-10.4) um3 Immature Gran % (Auto) (0-9) % Neut % (Auto) (38-83) % Lymph % (Auto) (25-47) % [place] % (Auto) (1-9) % Eos % (Auto) (0-6) % Baso % (Auto) (0-2) % Absolute Neuts (auto) (1.5-7.7) 10^3/ul Absolute Lymphs (auto) (1.0-4.8) 10^3/ul Absolute Monos (auto) (0-0.8) 10^3/ul Absolute Eos (auto) (0-0.6) 10^3/ul Absolute Basos (auto) (0-0.2) 10^3/ul Absolute Nucleated RBC 10^3/ul Neutrophils % (38-83) % Band Neutrophils % (0-8) % Lymphocytes % (25-47) % Reactive Lymphs % (0-6) % Monocytes % (0-13) % Nucleated RBC % Normal RBC Morphology (Normal) INR (Anticoag Therapy) 1.15 H (0.89-1.11) APTT 42.7 H (26.0-36.3) seconds Patient Temperature Not Reportable ABG pH 7.15 L* (7.35-7.45) ABG pCO2 82 H* (35-45) mmHg ABG pO2 120 H (80-100) mmHg ABG HCO3 22.3 (19-31) mmol/L ABG O2 Saturation 97.5 (95-98) % ABG Base Excess -3.2 L (-2.0-2.0) Respiration Rate Not Reportable O2 Delivery Device neb Ventilator Type Not Reportable Vent Mode Not Reportable FiO2 Not Reportable Inspiratory Time Not Reportable PEEP Not Reportable Pressure Support Not Reportable Pressure Control Not Reportable EPAP Not Reportable IPAP Not Reportable BiPAP Not Reportable Sodium (133-145) mmol/L Potassium (3.5-5.0) mmol/L Chloride (101-111) mmol/L Carbon Dioxide (22-32) mmol/L Anion Gap (2-11) mmol/L BUN (6-24) mg/dL Creatinine (0.67-1.17) mg/dL Est GFR ( Amer) (>60) Est GFR (Non-Af Amer) (>60) BUN/Creatinine Ratio (8-20) Glucose (70-100) mg/dL Lactic Acid (0.5-2.0) mmol/L Calcium (8.6-10.3) mg/dL Total Bilirubin (0.2-1.0) mg/dL AST (13-39) U/L ALT (7-52) U/L Alkaline Phosphatase (34-104) U/L Troponin I (<0.04) ng/mL C-Reactive Protein (< 5.00) mg/L B-Natriuretic Peptide 118 H ( - 100) pg/mL Total Protein (6.4-8.9) g/dL Albumin (3.2-5.2) g/dL Globulin (2-4) g/dL Albumin/Globulin Ratio (1-3) Microbiology and Other Data: Microbiology 05/29/17 11:59 Legionella Urinary Antigen - Final Urine Negative Legionella Streptococcus pneumoniae Ag Screen - Final Negative S. pneumo Antigen 05/29/17 10:20 Nasal Screen MRSA (PCR)([facility]) - Final Nasal Mrsa Negative Assess/Plan/Problems-Billing Mr Tavares is a 61 y/o M who has a h/o COPD not on home O2 and ongoing tobacco abuse who presented to the ER with c/o severe progressive SOB and was admitted for acute hypoxic and hypercarbic respiratory failure secondary to COPD exacerbation secondary to a RLL pneumonia with associated sepsis. - Patient Problems (1) Acute respiratory failure with hypoxia and hypercarbia Current Visit: Yes Status: Acute Code(s): J96.01 - ACUTE RESPIRATORY FAILURE WITH HYPOXIA; J96.02 - ACUTE RESPIRATORY FAILURE WITH HYPERCAPNIA SNOMED Code(s): 55023686 Comment: S/P intubtaion. Add guaifenesin. Tape prednisone. Started cefepime 05/29, now on cefriaxone. Continue supplemental O2 during the day and BiPAP at night. Although mask uncomfortable patient wore BiPAP last night. Will need Triology at discharge. (2) HTN (hypertension) Current Visit: Yes Status: Acute Code(s): I10 - ESSENTIAL (PRIMARY) HYPERTENSION SNOMED Code(s): 89546766 Comment: Controlled. Reduce dose of metoprolol 06/04. Status and Disposition: Stable to transfer to floor.
[2017-06-04] MEDS: Metoprolol Tartrate TAB* 25 MG PO SCH ×2 (08:34→21:43)
[2017-06-04] MEDS: cefTRIAXone VIAL(*) 1,000 MG in NS 0.9% 50 ML* 50 ML IVPB SCH (08:34)
[2017-06-04] MEDS: predniSONE TAB* 5 MG PO SCH (08:34)
[2017-06-04] MEDS: guaiFENesin LIQ* 100 MG/5 ML UDC PO SCH ×4 (08:34→21:43)
[2017-06-04] MEDS: Nicotine PATCH 14 MG/24 HR* PATCH TRANSDERM SCH (08:34)
[2017-06-04] MEDS: Tiotropium CAP.INH* CAP.INH/18 MCG (USE ORDER SET !) INH SCH (12:12)
[2017-06-04] MEDS: Mometasone/Formoter 200/5 MDI INH SCH ×2 (12:13→20:09)
[2017-06-04] MEDS: Nicotine Patch Removal NOTE PATCH OFF SCH (21:49)
[2017-06-05] MEDS: Heparin VIAL(*) 5000 UNITS/ML VIAL (FIVE THOUSAND) SUBCUT SCH ×3 (06:04→21:57)
[2017-06-05] MEDS: Mometasone/Formoter 200/5 MDI INH SCH ×2 (08:29→20:23)
[2017-06-05] MEDS: Tiotropium CAP.INH* CAP.INH/18 MCG (USE ORDER SET !) INH SCH (08:29)
[2017-06-05] MEDS: cefTRIAXone VIAL(*) 1,000 MG in NS 0.9% 50 ML* 50 ML IVPB SCH (08:52)
[2017-06-05] MEDS: predniSONE TAB* 5 MG PO SCH (08:52)
[2017-06-05] MEDS: guaiFENesin LIQ* 100 MG/5 ML UDC PO SCH ×4 (08:52→21:00)
[2017-06-05] MEDS: Nicotine PATCH 14 MG/24 HR* PATCH TRANSDERM SCH (08:57)
[2017-06-05] MEDS: Metoprolol Tartrate TAB* 25 MG PO SCH ×2 (10:32→21:56)
--- NOTE | 2017-06-05 12:40 | PN ---
Progress Note - Progress Note Date of Service: 06/05/17 - Pulm f/u Note: Pt seen and examined at bedside. Pt sitting up in bed. Reports improvement in breathing and cough. FiO2 requirements have improved. Is using BiPAP at night and denies any problems Active Medications Generic Name Dose Route Start Last Admin Trade Name Freq PRN Reason Stop Dose Admin Acetaminophen 650 mg 05/29/17 09:26 06/02/17 15:47 Tylenol Tab* PO 650 mg Q4H PRN Administration PAIN Albuterol 2.5 mg 05/29/17 09:32 Ventolin 2.5 Mg/3 Ml Neb.Silvana* INH Q1H PRN SOB/WHEEZING Albuterol/Ipratropium 1 neb 06/02/17 07:40 Duoneb (Albuterol 2.5 Mg/Ipratropium 0.5 Mg) INH Q6H PRN SOB/WHEEZING Device 1 each 05/31/17 11:00 Tiotropium Inhaler Device* INH .USE w/ SPIRIVA CAPS [facility] Guaifenesin 10 ml 06/04/17 09:00 06/05/17 08:52 Robitussin* PO 10 ml QID [facility] Administration Heparin Sodium (Porcine) 1 - 3 ml 05/29/17 18:00 06/05/17 06:05 Heparin Flush Picc/Ml/Cvc(*) FLUSH 2 ml 0600,1800 [facility] Administration Protocol Heparin Sodium (Porcine) 5,000 units 05/30/17 06:00 06/05/17 06:04 Heparin Vial(*) SUBCUT 5,000 units Q8HR [facility] Administration Ceftriaxone Sodium 1,000 mg/ 50 mls @ 200 mls/hr 05/31/17 08:00 06/05/17 08: 52 Sodium Chloride IVPB 200 mls/hr Q24H [facility] Administration Metoprolol Tartrate 25 mg 06/04/17 09:00 06/05/17 10:32 Lopressor Tab* PO 25 mg Q12HR [facility] Administration Mometasone Furoate/Formoterol Fumar 2 puff 05/31/17 21:00 06/05/17 08:29 Dulera 200/5 Mdi* INH 2 puff BID [facility] Administration Nicotine 1 patch 06/04/17 09:00 06/05/17 08:57 Nicotine Patch 14 Mg/24 Hr* TRANSDERM 1 patch DAILY [facility] Administration Pharmacy Profile Note 1 note 05/29/17 21:00 06/04/17 21:49 Nicotine Patch Removal Note* PATCH OFF 1 note 2100 [facility] Administration Polyethylene Glycol/Electrolytes 17 gm 06/01/17 08:49 Miralax* PO DAILY PRN CONSTIPATION Prednisone 15 mg 06/04/17 09:00 06/05/17 08:52 Deltasone Tab* PO 15 mg DAILY [facility] Administration Tiotropium [place] 1 cap 06/01/17 09:00 06/05/17 08:29 Spiriva Cap.Inh* INH 1 cap DAILY [facility] Administration Vital Signs Temp Pulse Resp BP Pulse Ox 98.1 F 119 15 126/59 92 06/05/17 07:28 06/05/17 09:08 06/05/17 08:33 06/05/17 09:08 06/05/17 08:33 O/E: Morbidly obese male in NAD, alert ,awake,not using accessory muscles HEENT: PERRLA, No JVD Lungs: Diminished air entry b/l, decreased at bases, no wheeze CVS: S1, S2+, distant heart sounds Abd: Obese, BS+, non-distended Ext: Edema +, Normal ROM Skin: No rash of extremities Neuro: No focal defecits No new labs No new imaging studies I/R: 61 y o morbidly obese male, smoker with significant smoking history a/w worsening SOB found to be in acute hypercapnic and hypoxic resp failure secondary to Rt sided PNA, improving Pt responded well to NIPPV Will c/w BiPAP at night and will be d/c ed with BiPAP at night C/w bronchodilators Pt reports having insurance issues for coverage of inhalers and not being able to afford Will need help with pediatric social worker for medications to be arranged Down to 5L O2 On Rocephin, completed Zithromax, can d/c after completion of 7 day course On tapering prednisone, can be d/emily on 10mg dose for 1 week Pt has nebulizer equipment and meds Pt is DNR, doesnot want aggressive measures Smoking cessation reenforced D/w Dr Martinez
[2017-06-05] MEDS ORDERED: predniSONE TAB* 10 MG PO SCH (15:52)
--- NOTE | 2017-06-05 16:01 | PN ---
Subjective Date of Service: 06/05/17 Interval History: Patient states "I have to go home now." but gives no specific reason for this. He states he walked without O2. Family History: Unchanged from Admission Social History: Unchanged from Admission Past Medical History: Unchanged from Admission Objective Active Medications: Acetaminophen (Tylenol Tab*) 650 mg PO Q4H PRN PRN Reason: PAIN Last Admin: 06/02/17 15:47 Dose: 650 mg Albuterol (Ventolin 2.5 Mg/3 Ml Neb.Silvana*) 2.5 mg INH Q1H PRN PRN Reason: SOB/WHEEZING Albuterol/Ipratropium (Duoneb (Albuterol 2.5 Mg/Ipratropium 0.5 Mg)) 1 neb INH Q6H PRN PRN Reason: SOB/WHEEZING Device (Tiotropium Inhaler Device*) 1 each INH .USE w/ SPIRIVA CAPS [facility] Guaifenesin (Robitussin*) 10 ml PO QID [facility] Last Admin: 06/05/17 12:55 Dose: 10 ml Heparin Sodium (Porcine) (Heparin Flush Picc/Ml/Cvc(*)) 1 - 3 ml FLUSH 0600, 1800 [facility] PRN Reason: Protocol Last Admin: 06/05/17 06:05 Dose: 2 ml Heparin Sodium (Porcine) (Heparin Vial(*)) 5,000 units SUBCUT Q8HR [facility] Last Admin: 06/05/17 12:55 Dose: 5,000 units Ceftriaxone Sodium 1,000 mg/ (Sodium Chloride) 50 mls @ 200 mls/hr IVPB Q24H [facility] Last Admin: 06/05/17 08:52 Dose: 200 mls/hr Metoprolol Tartrate (Lopressor Tab*) 25 mg PO Q12HR [facility] Last Admin: 06/05/17 10:32 Dose: 25 mg Mometasone Furoate/Formoterol Fumar (Dulera 200/5 Mdi*) 2 puff INH BID [facility] Last Admin: 06/05/17 08:29 Dose: 2 puff Nicotine (Nicotine Patch 14 Mg/24 Hr*) 1 patch TRANSDERM DAILY [facility] Last Admin: 06/05/17 08:57 Dose: 1 patch Pharmacy Profile Note (Nicotine Patch Removal Note*) 1 note PATCH OFF 2100 [facility] Last Admin: 06/04/17 21:49 Dose: 1 note Polyethylene Glycol/Electrolytes (Miralax*) 17 gm PO DAILY PRN PRN Reason: CONSTIPATION Prednisone (Deltasone Tab*) 10 mg PO DAILY [facility] Tiotropium [place] (Spiriva Cap.Inh*) 1 cap INH DAILY [facility] Last Admin: 06/05/17 08:29 Dose: 1 cap Vital Signs 06/04/17 06/04/17 06/04/17 19:21 20:00 20:11 Temperature 98.1 F Pulse Rate 120 96 Respiratory 20 19 20 Rate Blood Pressure 116/70 (mmHg) O2 Sat by Pulse 95 96 Oximetry 06/04/17 06/05/17 06/05/17 23:38 03:25 07:28 Temperature 97.3 F 98.1 F Pulse Rate 97 93 103 Respiratory 16 16 16 Rate Blood Pressure 100/59 104/68 74/52 (mmHg) O2 Sat by Pulse 93 95 97 Oximetry 06/05/17 06/05/17 06/05/17 07:29 08:00 08:33 Temperature Pulse Rate 108 Respiratory 15 15 Rate Blood Pressure 90/63 (mmHg) O2 Sat by Pulse 92 Oximetry 06/05/17 06/05/17 09:08 13:52 Temperature 98.1 F Pulse Rate 119 109 Respiratory 18 Rate Blood Pressure 126/59 124/68 (mmHg) O2 Sat by Pulse 96 Oximetry Oxygen Devices in Use Now: None - 8L-92-95% Appearance: Alert, sitting on the edge of his bed. Difficult to assess his mood. Neck: NL Appearance and Movements; NL JVP, No Thyroid Enlargement, Masses Respiratory: Symmetrical Chest Expansion and Respiratory Effort, Clear to Percussion - diminished BS BL Cardiovascular: NL Sounds; No Murmurs; No JVD, RRR, No Edema, - Extremities: No Edema, No Clubbing, Cyanosis, - Skin: No Rash or Ulcers, No Nodules or Sclerosis, - Neurological: Alert and Oriented x 3, NL Sensation Result Diagrams: 06/01/17 06:00 06/01/17 06:00 Additional Lab and Data: Lab Results 05/29/17 05/29/17 05/29/17 Range/Units 07:25 07:25 07:25 WBC 13.2 H (3.5-10.8) 10^3/ul RBC 5.29 (4.0-5.4) 10^6/ul Hgb 16.9 (14.0-18.0) g/dl Hct 51 (42-52) % MCV 96 H (80-94) fL MCH 32 H (27-31) pg MCHC 34 (31-36) g/dl RDW 14 (10.5-15) % Plt Count 216 (150-450) 10^3/ul MPV 9 (7.4-10.4) um3 Immature Gran % (Auto) 8 (0-9) % Neut % (Auto) 74.5 (38-83) % Lymph % (Auto) 10.4 L (25-47) % [place] % (Auto) 14.4 H (1-9) % Eos % (Auto) 0.2 (0-6) % Baso % (Auto) 0.5 (0-2) % Absolute Neuts (auto) 9.8 H (1.5-7.7) 10^3/ul Absolute Lymphs (auto) 1.4 (1.0-4.8) 10^3/ul Absolute Monos (auto) 1.9 H (0-0.8) 10^3/ul Absolute Eos (auto) 0 (0-0.6) 10^3/ul Absolute Basos (auto) 0.1 (0-0.2) 10^3/ul Absolute Nucleated RBC 0.01 10^3/ul Neutrophils % 74 (38-83) % Band Neutrophils % 8 (0-8) % Lymphocytes % 8 L (25-47) % Reactive Lymphs % 2 (0-6) % Monocytes % 8 (0-13) % Nucleated RBC % 0.1 Normal RBC Morphology Normal (Normal) INR (Anticoag Therapy) (0.89-1.11) APTT (26.0-36.3) seconds Patient Temperature ABG pH (7.35-7.45) ABG pCO2 (35-45) mmHg ABG pO2 (80-100) mmHg ABG HCO3 (19-31) mmol/L ABG O2 Saturation (95-98) % ABG Base Excess (-2.0-2.0) Respiration Rate O2 Delivery Device Ventilator Type Vent Mode FiO2 Inspiratory Time PEEP Pressure Support Pressure Control EPAP IPAP BiPAP Sodium 135 (133-145) mmol/L Potassium 4.3 (3.5-5.0) mmol/L Chloride 97 L (101-111) mmol/L Carbon Dioxide 27 (22-32) mmol/L Anion Gap 11 (2-11) mmol/L BUN 22 (6-24) mg/dL Creatinine 1.24 H (0.67-1.17) mg/dL Est GFR ( Amer) 76.5 (>60) Est GFR (Non-Af Amer) 59.5 (>60) BUN/Creatinine Ratio 17.7 (8-20) Glucose 150 H (70-100) mg/dL Lactic Acid 2.7 H* (0.5-2.0) mmol/L Calcium 9.6 (8.6-10.3) mg/dL Total Bilirubin 1.30 H (0.2-1.0) mg/dL AST 23 (13-39) U/L ALT 20 (7-52) U/L Alkaline Phosphatase 99 (34-104) U/L Troponin I 0.03 (<0.04) ng/mL C-Reactive Protein 280.33 H (< 5.00) mg/L B-Natriuretic Peptide ( - 100) pg/mL Total Protein 8.1 (6.4-8.9) g/dL Albumin 4.7 (3.2-5.2) g/dL Globulin 3.4 (2-4) g/dL Albumin/Globulin Ratio 1.4 (1-3) 05/29/17 05/29/17 05/29/17 Range/Units 07:25 07:25 07:55 WBC (3.5-10.8) 10^3/ul RBC (4.0-5.4) 10^6/ul Hgb (14.0-18.0) g/dl Hct (42-52) % MCV (80-94) fL MCH (27-31) pg MCHC (31-36) g/dl RDW (10.5-15) % Plt Count (150-450) 10^3/ul MPV (7.4-10.4) um3 Immature Gran % (Auto) (0-9) % Neut % (Auto) (38-83) % Lymph % (Auto) (25-47) % [place] % (Auto) (1-9) % Eos % (Auto) (0-6) % Baso % (Auto) (0-2) % Absolute Neuts (auto) (1.5-7.7) 10^3/ul Absolute Lymphs (auto) (1.0-4.8) 10^3/ul Absolute Monos (auto) (0-0.8) 10^3/ul Absolute Eos (auto) (0-0.6) 10^3/ul Absolute Basos (auto) (0-0.2) 10^3/ul Absolute Nucleated RBC 10^3/ul Neutrophils % (38-83) % Band Neutrophils % (0-8) % Lymphocytes % (25-47) % Reactive Lymphs % (0-6) % Monocytes % (0-13) % Nucleated RBC % Normal RBC Morphology (Normal) INR (Anticoag Therapy) 1.15 H (0.89-1.11) APTT 42.7 H (26.0-36.3) seconds Patient Temperature Not Reportable ABG pH 7.15 L* (7.35-7.45) ABG pCO2 82 H* (35-45) mmHg ABG pO2 120 H (80-100) mmHg ABG HCO3 22.3 (19-31) mmol/L ABG O2 Saturation 97.5 (95-98) % ABG Base Excess -3.2 L (-2.0-2.0) Respiration Rate Not Reportable O2 Delivery Device neb Ventilator Type Not Reportable Vent Mode Not Reportable FiO2 Not Reportable Inspiratory Time Not Reportable PEEP Not Reportable Pressure Support Not Reportable Pressure Control Not Reportable EPAP Not Reportable IPAP Not Reportable BiPAP Not Reportable Sodium (133-145) mmol/L Potassium (3.5-5.0) mmol/L Chloride (101-111) mmol/L Carbon Dioxide (22-32) mmol/L Anion Gap (2-11) mmol/L BUN (6-24) mg/dL Creatinine (0.67-1.17) mg/dL Est GFR ( Amer) (>60) Est GFR (Non-Af Amer) (>60) BUN/Creatinine Ratio (8-20) Glucose (70-100) mg/dL Lactic Acid (0.5-2.0) mmol/L Calcium (8.6-10.3) mg/dL Total Bilirubin (0.2-1.0) mg/dL AST (13-39) U/L ALT (7-52) U/L Alkaline Phosphatase (34-104) U/L Troponin I (<0.04) ng/mL C-Reactive Protein (< 5.00) mg/L B-Natriuretic Peptide 118 H ( - 100) pg/mL Total Protein (6.4-8.9) g/dL Albumin (3.2-5.2) g/dL Globulin (2-4) g/dL Albumin/Globulin Ratio (1-3) Microbiology and Other Data: Microbiology 05/29/17 11:59 Legionella Urinary Antigen - Final Urine Negative Legionella Streptococcus pneumoniae Ag Screen - Final Negative S. pneumo Antigen 05/29/17 10:20 Nasal Screen MRSA (PCR)([facility]UN[facility]) - Final Nasal Mrsa Negative Assess/Plan/Problems-Billing Mr Tavares is a 61 y/o M who has a h/o COPD not on home O2 and ongoing tobacco abuse who presented to the ER with c/o severe progressive SOB and was admitted for acute hypoxic and hypercarbic respiratory failure secondary to COPD exacerbation secondary to a RLL pneumonia with associated sepsis. - Patient Problems (1) Acute respiratory failure with hypoxia and hypercarbia Current Visit: Yes Status: Acute Code(s): J96.01 - ACUTE RESPIRATORY FAILURE WITH HYPOXIA; J96.02 - ACUTE RESPIRATORY FAILURE WITH HYPERCAPNIA SNOMED Code(s): 87814035 Comment: S/P intubtaion. Add guaifenesin. Continue to taper prednisone, plan 4-5 days of 10 mg /day on discharge (expected 06/06). Will have completed an adequate course of antibiotics by 06/06.. Continue supplemental O2 during the day and BiPAP at night. Although mask uncomfortable patient wore BiPAP last night. Triology should be available at his home 06/06. Prednisone may be contributing to his mood change. (2) HTN (hypertension) Current Visit: Yes Status: Acute Code(s): I10 - ESSENTIAL (PRIMARY) HYPERTENSION SNOMED Code(s): 60736503 Comment: Controlled. Reduce dose of metoprolol 06/04. (3) Agitation Current Visit: Yes Status: Acute Code(s): R45.1 - RESTLESSNESS AND AGITATION SNOMED Code(s): 21866100 Comment: PRN alprazolam ordered 06/05. at bedside. Status and Disposition: Stable to transfer to floor.
[2017-06-05] MEDS ORDERED: ALPRAZolam TAB* 0.5 MG PO PRN (16:55)
[2017-06-05] MEDS ORDERED: Nicotine Inhaler* 10 MG AMP INH PRN (17:30)
[2017-06-05] MEDS ORDERED: Nicotine Lozenge* 4 MG LOZENGE MT PRN (17:32)
[2017-06-05] MEDS ORDERED: Mouth Piece, Nicotine* 1 EACH CARTRIDGE INH SCH (17:42)
[2017-06-05] MEDS: Nicotine Inhaler* 10 MG AMP INH PRN (18:43)
[2017-06-05] MEDS: Nicotine Patch Removal NOTE PATCH OFF SCH (21:05)
[2017-06-06] MEDS: Nicotine Inhaler* 10 MG AMP INH PRN (03:24)
[2017-06-06] MEDS: Heparin VIAL(*) 5000 UNITS/ML VIAL (FIVE THOUSAND) SUBCUT SCH (06:01)
[2017-06-06] MEDS: Tiotropium CAP.INH* CAP.INH/18 MCG (USE ORDER SET !) INH SCH (08:07)
[2017-06-06] MEDS: Mometasone/Formoter 200/5 MDI INH SCH (08:07)
[2017-06-06] MEDS: cefTRIAXone VIAL(*) 1,000 MG in NS 0.9% 50 ML* 50 ML IVPB SCH (08:20)
[2017-06-06] MEDS: Metoprolol Tartrate TAB* 25 MG PO SCH (08:20)
[2017-06-06 08:21] VITALS: BP 112/61
[2017-06-06] MEDS: guaiFENesin LIQ* 100 MG/5 ML UDC PO SCH ×2 (08:21→12:34)
[2017-06-06] MEDS: Nicotine PATCH 14 MG/24 HR* PATCH TRANSDERM SCH (08:25)
--- NOTE | 2017-06-06 10:48 | DS ---
DATE OF ADMISSION: 05/29/2017. DATE OF DISCHARGE: 06/06/2017. HISTORY OF PRESENT ILLNESS: This 61-year-old man presented with shortness of breath. He has a long history of COPD. He continued to smoke up until the time of admission. The history is detailed in the dictated admission note. He was found to have a right basilar pneumonia and had hypercarbic hypoxic respiratory failure. He was started on Vapotherm, but due to the CO2 elevation was switched to BiPAP. He completed his course of antibiotics here. He seemed to be quite agitated the last couple of days. Possibly this is in small part related to r educing his nicotine patch from 21 to 14. He was given a nicotine inhaler. I think he may have tro uble with prolonged hospitalization and have an underlying anxiety problem. It was difficult for ladarius shahid to explain what he was upset about. He was concerned about the cost of his treatment. He was alr mariama anxious to go home. On the day of discharge, I started him on Sertraline 25 mg daily. I think he might benefit from hav ing this titrated up if he tolerates it after a few days at home. He should be maintained on 10 mg of Prednisone until further evaluation. I offered him to see our p ulmonologist, who he was treated by in the hospital, but I think he prefers to stay in the [facility] for consultations. FINAL DIAGNOSES: 1. Hypercarbic respiratory failure. 2. Hypertension. 3. Agitation. 4. Tobacco use disorder. DISCHARGE MEDICATIONS: 1. Metoprolol 25 mg every 12 hours. This is a new dose. 2. Nicotine patch 14 mg per day. 3. Polyethylene Glycol 17 gm daily prn. 4. Guaifenesin 10 ml q.i.d. 5. Prednisone 10 mg daily. 6. Sertraline 25 mg daily. 7. Ipratropium 0.5 mg by inhalation t.i.d. 8. Fluticasone 220 mcg two puffs b.i.d. 9. Albuterol inhaler two puffs every 4 hours prn. 10. Albuterol 2.5 mg by nebulizer every 6 hours prn. [id number]/[facility] #: [id number]
[2017-06-06] MEDS ORDERED: Sertraline* 25 MG TAB PO SCH (11:00)
--- NOTE | 2017-06-06 11:50 | PN ---
Progress Note - Progress Note Date of Service: 06/06/17 Note: Time spent on discharge 50 minutes.
== END 2017-06-06 13:15 | disposition home or self-care (01) | DRG 871 ==
LOC: ED 07:11 → ICU 09:26 → MED 06-03 15:26
PROVIDERS: ADMIT Hospitalist; ATTEND Internal Medicine
PROC: 02HV33Z Insertion of Infusion Device into Superior Vena Cava, Percutaneous Approach (ICD-10-PCS; 2017-05-29)
PROC: 5A09557 Assistance with Respiratory Ventilation, Greater than 96 Consecutive Hours, Continuous Positive Airway Pressure (ICD-10-PCS; principal; 2017-06-01)
DX: A41.9 Sepsis, unspecified organism (principal); J96.01 Acute respiratory failure with hypoxia; J96.02 Acute respiratory failure with hypercapnia; E87.2 Acidosis; N17.9 Acute kidney failure, unspecified; J14 Pneumonia due to Hemophilus influenzae; J44.0 Chronic obstructive pulmonary disease with (acute) lower respiratory infection; J44.1 Chronic obstructive pulmonary disease with (acute) exacerbation; Z66 Do not resuscitate; G89.29 Other chronic pain; E66.01 Morbid (severe) obesity due to excess calories; M54.9 Dorsalgia, unspecified; R45.1 Restlessness and agitation; R73.9 Hyperglycemia, unspecified; F41.9 Anxiety disorder, unspecified; R65.20 Severe sepsis without septic shock; F17.210 Nicotine dependence, cigarettes, uncomplicated; Z86.11 Personal history of tuberculosis; Z86.19 Personal history of other infectious and parasitic diseases; Z82.5 Family history of asthma and other chronic lower respiratory diseases; Z80.1 Family history of malignant neoplasm of trachea, bronchus and lung; Z68.33 Body mass index [BMI] 33.0-33.9, adult; Z79.52 Long term (current) use of systemic steroids
CPT/HCPCS: 36415; 36600; 71010; 80048; 80053; 81003; 82803; 83036; 83605; 83880; 84484; 85025; 85027; 85610; 85730; 86140; 87040; 87070; 87077; 87185; 87205; 87641; 87899; 93005; 94640; 94660; 94760; 99406; A9270-GY; C1751; J0456; J0692; J0696; J1644; J2060; J2270; J2920; J2930; J2997; J7512

== ENCOUNTER 2019-06-28 18:23 | Inpatient (IN) | payer MEDICARE ==
[2019-06-28] MEDS ORDERED: methylPREDNISolone 125 MG* 2 ML VIAL IV ONE (19:15)
[2019-06-28] MEDS ORDERED: Albuterol 0.5% CONC NEB.SOL* 5 MG/ML 20 ml BOT INH ONE (19:16)
[2019-06-28 19:46] LABS: Hematocrit 43 % (42-52); Hemoglobin 14.4 g/dL (14.0-18.0); Mean Corpuscular HGB Conc 34 g/dL (31-36); Mean Corpuscular Hemoglobin 31 pg (27-31); Mean Corpuscular Volume 91 fL (80-94); Mean Platelet Volume 7.7 fL (7.4-10.4); Platelet Count 305 10^3/uL (150-450); Red Blood Count 4.72 10^6 /uL (4.18-5.48); Red Cell Distribution Width 15 % (10-15); White Blood Count 26.3 10^3/uL (3.5-10.8)
[2019-06-28] MEDS ORDERED: cefTRIAXone(*) 1 GM in NS 0.9% 50 ML* 50 ML IVPB ONE (19:49)
[2019-06-28] MEDS ORDERED: Azithromycin 500 mg/250 ml NS 500 MG/250 ML BAG IVPB ONE (19:49)
[2019-06-28] MEDS ORDERED: NS 0.9% 1000 ML** 1,000 ML IV ONE (19:56)
[2019-06-28] MEDS ORDERED: Acetaminophen TAB* 325 MG PO ONE (19:56)
[2019-06-28 20:05] LABS: ALT 57 U/L (7-52); AST 49 U/L (13-39); Albumin 3.8 g/dL (3.2-5.2); Albumin/Globulin Ratio 1.1 (1-3); Alkaline Phosphatase 100 U/L (34-104); Anion Gap 13 mmol/L (2-11); BUN/Creatinine Ratio 20.8 (8-20); Blood Urea Nitrogen 27 mg/dL (6-24); CO2 Carbon Dioxide 24 mmol/L (22-32); Calcium 9.1 mg/dL (8.6-10.3); Chloride 95 mmol/L (101-111); EGFR African American 67.7 (>60); EGFR Non-African American 55.9 (>60); Globulin 3.4 g/dL (2-4); Glucose 140 mg/dL (70-100); Potassium 3.6 mmol/L (3.5-5.0); Sodium 132 mmol/L (135-145); Total Protein 7.2 g/dL (6.4-8.9)
[2019-06-28 20:11] LABS: Troponin I 0.05 ng/mL (<0.04)
[2019-06-28 20:24] LABS: ABS Basophils 0.1 10^3/ul (0-0.2); ABS Eosinophils 0.1 10^3/ul (0-0.6); ABS Lymphocytes 1.1 10^3/ul (1.0-4.8); ABS Monocytes 1.6 10^3/ul (0-0.8); ABS Neutrophils 23.6 10^3/ul (1.5-7.7); Eosinophil % 0.2 %
--- NOTE | 2019-06-28 23:46 | ED ---
Respiratory - HPI Summary HPI Summary: 63 year old male presents to the ED with shortness of breath stating 2-3 days ago. He has a history of COPD. He reports associated fever, nonproductive cough , wheezing, rib pain, and knee pain. He has no history of trauma to his ribs. Had a breathing tube inserted for pneumonia 6 years ago. No history of DM, HTN, blood clots, PE, or long plane rides. He used albuterol today to no avail. Smokes tobacco, less than half a pack a day. Medications reviewed. Allergies noted. - History of Current Complaint Chief Complaint: EDShortnessOfBreath Stated Complaint: SHORT OF BREATH Time Seen by Provider: 06/28/19 19:04 Hx Obtained From: Patient Onset/Duration: Gradual Onset, Lasting Days Initial Severity: Moderate Current Severity: Moderate Pain Intensity: 6 Character: Wheezing, Cough (Nonproductive) Sputum Amount: None Aggravating Factor(s): Nothing Alleviating Factor(s): Nothing Associated Signs and Symptoms: Fever, SOB, Wheezing, Pleuritic Chest Pain - Allergy/Home Medications Allergies/Adverse Reactions: Allergies Allergy/AdvReac Type Severity Reaction Status Date / Time No Known Allergies Allergy Verified 06/28/19 19:20 Home Medications: Home Medications Levalbuterol Tartrate [Levalbuterol Tartrate Hfa] 1 puff INH BID PRN 06/28/19 [ History Confirmed 06/28/19] Metoprolol Tartrate TAB* [Lopressor TAB*] 100 mg PO Q12HR 06/28/19 [History Confirmed 06/28/19] Fluticasone/Umeclidin/Vilanter [Trelegy Ellipta 100-62.5-25] 1 puff INH DAILY [History Confirmed 06/29/19] PMH/Surg Hx/FS Hx/Imm Hx Cardiovascular History: Reports: Hx Congestive Heart Failure Respiratory History: Reports: Hx Asthma, Hx Chronic Obstructive Pulmonary Disease (COPD), Hx Pneumonia Denies: Hx Chronic Bronchitis, Hx Cystic Fibrosis, Hx Lung Cancer, Hx Pleural Effusion, Hx Pulmonary Edema, Hx Pulmonary Embolism, Hx Seasonal Allergies, Hx Sleep Apnea, Other Respiratory Problems/Disorders Musculoskeletal History: Reports: Hx Back Problems Denies: Hx Arthritis, Hx Bursitis, Hx Congenital Bone Abnormalities, Hx Fibromyalgia, Hx Gout, Hx Orthopedic Injury, Hx Osteoporosis, Hx Scoliosis, Hx Tendonitis, Other Musculoskeletal History Sensory History: Reports: Hx Contacts or Glasses Denies: Hx Cataracts, Hx Eye Injury, Hx Eye Prosthesis, Hx Glaucoma, Hx Legally Blind, Hx Macular Degeneration, Hx Vision Problem, Hx Deafness, Hx Hearing Aid, Hx Hearing Problem, Other Sensory Impairments Opthamlomology History: Reports: Hx Contacts or Glasses Denies: Hx Cataracts, Hx Eye Injury, Hx Eye Prosthesis, Hx Glaucoma, Hx Legally Blind, Hx Macular Degeneration, Hx Vision Problem, Other Sensory Impairments - Cancer History Cancer Type, Location and Year: NO HISTORY PER PT - Surgical History Surgery Procedure, Year, and Place: tonsils; glaucoma lasar bilat Infectious Disease History: No Infectious Disease History: Denies: Hx Clostridium Difficile, Hx Hepatitis, Hx Human Immunodeficiency Virus (HIV), Hx of Known/Suspected MRSA, Hx Shingles, Hx Tuberculosis, Hx Known/ Suspected VRE, Hx Known/Suspected VRSA, History Other Infectious Disease, Traveled Outside the [place] in Last 30 Days - Family History Known Family History: Positive: Other - NONCONTRIBUTORY - Social History Alcohol Use: None Substance Use Type: Reports: None Smoking Status (MU): Light Every Day Tobacco Smoker Type: Cigarettes Amount Used/How Often: 3 -4 cigs daily Length of Time of Smoking/Using Tobacco: 45 yrs Have You Smoked in the Last Year: Yes Review of Systems Positive: Fever Positive: Shortness Of Breath, Cough Positive: Arthralgia - knee pain, Myalgia - rib pain All Other Systems Reviewed And Are Negative: Yes Physical Exam - Summary Physical Exam Summary: Constitutional: Well-developed, Well-nourished, Alert. (-) Distressed. Speaks in short sentences. Skin: Warm, Dry HENT: Normocephalic; Atraumatic Eyes: Conjunctiva normal Neck: Musculoskeletal ROM normal neck. (-) JVD, (-) Stridor, (-) Tracheal deviation Cardio: Rhythm regular, rate normal, Heart sounds normal; Intact distal pulses; Radial pulses are 2+ and symmetric. (-) Murmur Pulmonary/Chest wall: (-) Respiratory distress, (-) Rales. Wheezing bilaterally. Moderately decreased air entry bilaterally. Tachycardic. Abd: Soft, (-) tenderness, (-) Distension, (-) Guarding, (-) Rebound Musculoskeletal: (-) Edema Lymph: (-) Cervical adenopathy Neuro: Alert, Oriented x3 Psych: Mood and affect Normal Triage Information Reviewed: Yes Vital Signs On Initial Exam: Initial Vitals Temp Pulse Resp BP Pulse Ox 101.2 F 137 20 100/69 91 06/28/19 18:30 06/28/19 18:30 06/28/19 18:30 06/28/19 18:30 06/28/19 18:30 Vital Signs Reviewed: Yes Procedures - Sedation Patient Received Moderate/Deep Sedation with Procedure: No Diagnostics - Vital Signs Vital Signs Temp Pulse Resp BP Pulse Ox 06/28/19 22:42 94 25 115/66 96 06/28/19 22:40 36 73/36 06/28/19 22:26 98.2 F 06/28/19 22:09 98 37 94/46 94 06/28/19 22:00 109 20 95 06/28/19 21:39 107 21 91/60 93 06/28/19 21:26 109 17 96/49 94 06/28/19 21:10 115 24 85/48 94 06/28/19 21:00 117 28 94 06/28/19 20:39 122 27 107/54 95 06/28/19 20:00 128 29 99 06/28/19 19:46 126 18 98 06/28/19 19:40 132 17 103/61 97 06/28/19 19:09 135 95/64 95 06/28/19 19:07 132 92 06/28/19 18:30 101.2 F 137 20 100/69 91 - Laboratory Lab Results: Lab Results 06/28/19 06/28/19 06/28/19 Range/Units 19:36 19:36 19:36 WBC 26.3 H (3.5-10.8) 10^3/uL RBC 4.72 (4.18-5.48) 10^6 /uL Hgb 14.4 (14.0-18.0) g/dL Hct 43 (42-52) % MCV 91 (80-94) fL MCH 31 (27-31) pg MCHC 34 (31-36) g/dL RDW 15 (10-15) % Plt Count 305 (150-450) 10^3/uL MPV 7.7 (7.4-10.4) fL Neut % (Auto) 89.5 % Lymph % (Auto) 4.0 % Leon % (Auto) 6.0 % Eos % (Auto) 0.2 % Baso % (Auto) 0.3 % Absolute Neuts (auto) 23.6 H (1.5-7.7) 10^3/ul Absolute Lymphs (auto) 1.1 (1.0-4.8) 10^3/ul Absolute Monos (auto) 1.6 H (0-0.8) 10^3/ul Absolute Eos (auto) 0.1 (0-0.6) 10^3/ul Absolute Basos (auto) 0.1 (0-0.2) 10^3/ul Absolute Nucleated RBC 0.0 10^3/ul Nucleated RBC % 0.0 VBG pH (7.32-7.43) VBG pCO2 (41-51) mmHg VBG pO2 (35-45) mmHg VBG HCO3 (24-28) mmol/L VBG O2 Saturation (70-80) % VBG Base Excess (0.0-4.0) mmol/L Sodium 132 L (135-145) mmol/L Potassium 3.6 (3.5-5.0) mmol/L Chloride 95 L (101-111) mmol/L Carbon Dioxide 24 (22-32) mmol/L Anion Gap 13 H (2-11) mmol/L BUN 27 H (6-24) mg/dL Creatinine 1.30 H (0.67-1.17) mg/dL Est GFR ( Amer) 67.7 (>60) Est GFR (Non-Af Amer) 55.9 (>60) BUN/Creatinine Ratio 20.8 H (8-20) Glucose 140 H (70-100) mg/dL Lactic Acid 1.5 (0.5-2.0) mmol/L Calcium 9.1 (8.6-10.3) mg/dL Total Bilirubin 0.90 (0.2-1.0) mg/dL AST 49 H (13-39) U/L ALT 57 H (7-52) U/L Alkaline Phosphatase 100 (34-104) U/L Troponin I 0.05 H* (<0.04) ng/mL B-Natriuretic Peptide (<=100) pg/mL Total Protein 7.2 (6.4-8.9) g/dL Albumin 3.8 (3.2-5.2) g/dL Globulin 3.4 (2-4) g/dL Albumin/Globulin Ratio 1.1 (1-3) 06/28/19 06/28/19 Range/Units 19:36 19:36 WBC (3.5-10.8) 10^3/uL RBC (4.18-5.48) 10^6 /uL Hgb (14.0-18.0) g/dL Hct (42-52) % MCV (80-94) fL MCH (27-31) pg MCHC (31-36) g/dL RDW (10-15) % Plt Count (150-450) 10^3/uL MPV (7.4-10.4) fL Neut % (Auto) % Lymph % (Auto) % Leon % (Auto) % Eos % (Auto) % Baso % (Auto) % Absolute Neuts (auto) (1.5-7.7) 10^3/ul Absolute Lymphs (auto) (1.0-4.8) 10^3/ul Absolute Monos (auto) (0-0.8) 10^3/ul Absolute Eos (auto) (0-0.6) 10^3/ul Absolute Basos (auto) (0-0.2) 10^3/ul Absolute Nucleated RBC 10^3/ul Nucleated RBC % VBG pH 7.46 H (7.32-7.43) VBG pCO2 37 L (41-51) mmHg VBG pO2 < 38.0 (35-45) mmHg VBG HCO3 25.9 (24-28) mmol/L VBG O2 Saturation 64.3 L (70-80) % VBG Base Excess 2.5 (0.0-4.0) mmol/L Sodium (135-145) mmol/L Potassium (3.5-5.0) mmol/L Chloride (101-111) mmol/L Carbon Dioxide (22-32) mmol/L Anion Gap (2-11) mmol/L BUN (6-24) mg/dL Creatinine (0.67-1.17) mg/dL Est GFR ( Amer) (>60) Est GFR (Non-Af Amer) (>60) BUN/Creatinine Ratio (8-20) Glucose (70-100) mg/dL Lactic Acid (0.5-2.0) mmol/L Calcium (8.6-10.3) mg/dL Total Bilirubin (0.2-1.0) mg/dL AST (13-39) U/L ALT (7-52) U/L Alkaline Phosphatase (34-104) U/L Troponin I (<0.04) ng/mL B-Natriuretic Peptide 101 H (<=100) pg/mL Total Protein (6.4-8.9) g/dL Albumin (3.2-5.2) g/dL Globulin (2-4) g/dL Albumin/Globulin Ratio (1-3) Result Diagrams: 06/29/19 06:43 06/29/19 06:43 Lab Statement: Any lab studies that have been ordered have been reviewed, and results considered in the medical decision making process. - Radiology CXR Radiology Interpretation Completed By: ED Physician Summary of Radiographic Findings: CXR shows left upper lobe and right lower lobe infiltrate. ED physician has interpreted this report. Pending official read. Disposition - Course Course Of Treatment: Patient was brought in with respiratory distress. Patient is tachycardic and febrile here. Patient had a chest x-ray which showed multifocal pneumonia. Patient was given a hour-long treatment, steroids, antibiotics for his pneumonia. Patient did not meet severe sepsis criteria. Patient is admitted to the hospital. - Diagnoses Provider Diagnoses: Multifocal pneumonia, Leukocytosis, COPD exacerbation - Physician Notifications Discussed Care Of Patient With: Kd Poole Time Discussed With Above Provider: 20:18 Instructed by Provider To: Admit As Inpatient - Spoke to Dr. Poole who accepted patient for admission. Admit/Transition Orders Completed By ED Provider: Yes Discharge ED - Sign-Out/Discharge Documenting (check all that apply): Patient Departure - admit - Discharge Plan Condition: Stable Disposition: ADMITTED TO [facility] - Billing Disposition and Condition Condition: STABLE Disposition: Admitted to [facility] - Attestation Statements Document Initiated by Scribe: Yes Documenting Scribe: Ronald Carlos Provider For Whom Scribe is Documenting (Include Credential): Raymond Dahl MD. Scribe Attestation: Ronald Vila, scribed for Raymond Dahl MD. on 06/29/19 at 1951. Scribe Documentation Reviewed: Yes Provider Attestation: The documentation as recorded by the scribe, Ronald Carlos accurately reflects the service I personally performed and the decisions made by me, Raymond Dahl MD. Status of Scribe Document: Viewed
[2019-06-29] MEDS ORDERED: NS 0.9% 1000 ML** 1,000 ML IV ONE ×2 (01:38→07:59)
[2019-06-29] MEDS ORDERED: Ipratropium 0.5MG/2.5ML NEB* 0.5 MG/2.5 ML NEB.SOLN INH PRN (02:53)
[2019-06-29] MEDS ORDERED: NS 0.9% 1000 ML** 1,000 ML IV SCH (03:00)
--- NOTE | 2019-06-29 04:42 | HP ---
CC: Dr. Bozena Farris * HISTORY AND PHYSICAL: DATE OF ADMISSION: 06/29/19 PRIMARY CARE PHYSICIAN: Dr. Bozena Farris. CHIEF COMPLAINT: Shortness of breath. HISTORY OF PRESENT ILLNESS: This is a 63-year-old male with past medical history of COPD, on 3 L nasal cannula at home; but still an active smoker, who came in due to 3 days of shortness of breath. The patient stated that he has been having cough with sputum production (he is unsure of the color) for the last 3 days. Cough is accompanied by chest pain only when he has severe coughing spells and he has been wheezing for the last 3 days. Today, he also developed fever with a fever of 101.2 and finally decided that he was not feeling well enough and he was not getting any better with the albuterol he tried at home, so he came into the ER for evaluation. He was noted to have a multifocal pneumonia and severe hypoxia, and he is being admitted for that. PAST MEDICAL HISTORY: He has had a history of COPD and still is an active smoker, on 3 L nasal cannula, previous history of intubation 6 years ago for a similar event, and a recent admission 2 years ago for COPD exacerbation due to Haemophilus influenza pneumonia. He also has a history of tachycardia, for which he takes metoprolol. He stated that he does not have any high blood pressure; in fact, his blood pressure actually runs a little low. PAST SURGICAL HISTORY: He denies any surgery history. HOME MEDICATIONS: The patient is currently on: 1. Breo Ellipta MDI by inhalation daily. 2. Robitussin 10 mL p.o. 4 times a day. 3. Metoprolol 100 mg p.o. q.12 hours. 4. Levalbuterol by inhalation b.i.d. p.r.n. 5. Atrovent nebulization t.i.d. 6. Ventolin HFA p.r.n. 7. Albuterol nebulization q.6 hours p.r.n. 8. Flovent HFA 2 puffs by inhalation b.i.d. ALLERGIES: The patient has no known documented allergies. FAMILY HISTORY: His mom is still alive at age 85 and has COPD. Father roughly around 50 with lung cancer. One brother who is living has COPD as well. SOCIAL HISTORY: He is and lives with his , Samra Zabala, who is his surrogate decision maker. He has 2 children. He is a former line haul driver, currently retired. He has been smoking since age 16 and has cut down to half a pack per day. Denies any alcohol or drug use and is a full code. Previously, there was documentation that he was a DNR, but on repeated questioning he still states that he wants everything to be done. REVIEW OF SYSTEMS: Fourteen point review of systems did not reveal any new information, other than the ones in the HPI. PHYSICAL EXAMINATION GENERAL: The patient is awake, alert and oriented x3, did not appear to be in acute respiratory distress. VITAL SIGNS: In the ER, BP was hovering on the low normal side which improved with 2 L bolus to 96/51, heart rate 78, respiration rate 25, saturating 98% on 3 L nasal cannula, temperature T-max was recorded at 101.2; repeat temperature was 97.4. HEAD AND NECK: Atraumatic and normocephalic. Bilateral pupils are reactive. Oral mucosa was moist. NECK: Supple. No jugular venous distention. LUNGS: The patient had bilateral rhonchi with intermittent prolonged wheezing. HEART: S1 and S2. Regular rate and rhythm with a systolic murmur heard. ABDOMEN: Obese, soft, and nontender. EXTREMITIES: No cyanosis, clubbing, or edema. DIAGNOSTIC STUDIES/LAB DATA: Labs: CBC showed elevated white count of 26. Hemoglobin, hematocrit, and platelets were stable. VBG shows a pH of 7.46, pCO2 of 307, and a venous oxygen saturation of 63%. Comprehensive metabolic panel shows hyponatremia with sodium of 132, BUN elevated at 27, creatinine of 1.3, random glucose elevated at 140. AST and ALT were minimally elevated. Troponin was minimally elevated at 0.05, but the repeat troponin was normal. LFTs were within normal limits. Chest x-ray: Portable chest x-ray showed bilateral infiltrates, the more prominent one was in the left upper lobe and possibly in the right lower lobe as well. EKG showed sinus rhythm at 75 beats per minute with right bundle-branch block and left atrial fascicular block and prolonged MO interval. When compared to his older EKG, there was some intraventricular conduction delay, but not as prominent as today. IMPRESSION: This is a 63-year-old male with a history of chronic obstructive pulmonary disease who came in with acute respiratory distress secondary to chronic obstructive pulmonary disease and also noted to have elevated white count and fever consistent with sepsis secondary to multifocal pneumonia. ASSESSMENT AND PLAN: 1. Sepsis secondary to multifocal pneumonia. We will start the patient on ceftriaxone and azithromycin. We will get urine legionella and streptococcal antigens. We will also follow blood cultures and sputum culture and titrate antibiotics accordingly. 2. Hypoxic respiratory failure secondary to chronic obstructive pulmonary disease exacerbation, secondary to pneumonia. We will start the patient on steroids and DuoNeb. We will choose Xopenex rather than albuterol in light of his history of tachycardia, but we will hold metoprolol given his low-normal blood pressures. 3. Acute kidney injury, likely secondary to sepsis. We will repeat labs in the morning. 4. EKG changes showing bundle-branch block, could be secondary to pulmonary hypertension. We will get an echocardiogram to look at his right ventricle. Also, given his history of smoking, we will also evaluate his left ventricular function and systolic function as well to rule out any silent myocardial infarctions. At this point, the troponin leak might be secondary to sepsis and does not need a stress test in my opinion and just trend his troponins until they are negative. 5. Elevated random glucose. We will get an A1c level with a.m. labs to rule out any underlying diabetes. 6. DVT prophylaxis with subcu Lovenox. 7. Code status. He is currently full code and is the healthcare proxy. [id number]/[facility] #: [id number] LUIS
[2019-06-29] MEDS: Levalbuterol 1.25MG/0.5ML NEB INH PRN ×2 (04:54→23:17)
[2019-06-29] MEDS: Enoxaparin(*) 40 MG/0.4 ML SYR SUBCUT SCH (06:16)
[2019-06-29] MEDS: methylPREDNISolone SOD 40 MG* 1 ML VIAL IV SCH ×2 (06:16→15:14)
[2019-06-29] MEDS: Acetaminophen TAB* 325 MG PO PRN ×2 (06:17→21:15)
[2019-06-29 07:05] LABS: ABS Lymphocytes 0.7 10^3/ul (1.0-4.8); ABS Monocytes 0.7 10^3/ul (0-0.8); ABS Neutrophils 16.8 10^3/ul (1.5-7.7); Hematocrit 39 % (42-52); Hemoglobin 12.9 g/dL (14.0-18.0); Lymphocyte % 3.6 %; Mean Corpuscular HGB Conc 33 g/dL (31-36); Mean Corpuscular Hemoglobin 31 pg (27-31); Mean Corpuscular Volume 92 fL (80-94); Mean Platelet Volume 7.7 fL (7.4-10.4); Platelet Count 259 10^3/uL (150-450); Red Blood Count 4.24 10^6 /uL (4.18-5.48); Red Cell Distribution Width 15 % (10-15); White Blood Count 18.2 10^3/uL (3.5-10.8)
[2019-06-29 07:22] LABS: BUN/Creatinine Ratio 21.1 (8-20); Calcium 8.1 mg/dL (8.6-10.3); EGFR African American 97.2 (>60); EGFR Non-African American 80.3 (>60); Potassium 3.7 mmol/L (3.5-5.0); Troponin I 0.03 ng/mL (<0.04)
[2019-06-29] MEDS: Nicotine PATCH 14 MG/24 HR* PATCH TRANSDERM SCH (08:04)
[2019-06-29 09:09] LABS: Hepatitis C Antibody Negative (Negative)
--- NOTE | 2019-06-29 10:07 | PN ---
Subjective Date of Service: 06/29/19 Interval History: Patient feels his breathing is improved but tells me it still feels like he is short of breath. Reports continued symptomatic fever/chills. Denies chest pain. Tells me he had abdominal pain earlier this morning at [facility] which is now resolved. He has a productive cough with sputum at baseline, but frequency and volume of sputum production is greater than normal. Pt complains that it feels like oxygen is not being delivered through NC due to nasal congestion. He has cut down to 3-7 cigarettes per day. Declines nicotine gum. Tells me he has tried chantix in the past. Objective Active Medications: Acetaminophen (Tylenol Tab*) 650 mg PO Q4H PRN PRN Reason: MILD PAIN or TEMP > 100.4 Last Admin: 06/29/19 06:17 Dose: 650 mg Enoxaparin Sodium (Lovenox(*)) 40 mg SUBCUT Q24H [facility] Last Admin: 06/29/19 06:16 Dose: 40 mg Sodium Chloride (Ns 0.9% 1000 Ml) 1,000 mls @ 100 mls/hr IV PER RATE [facility] Last Admin: 06/29/19 09:19 Dose: 100 mls/hr Azithromycin (Zithromax 500 Mg/250 Ml) 500 mg in 250 mls @ 250 mls/hr IVPB Q24H [facility] Ceftriaxone Sodium 1 gm/ (Sodium Chloride) 50 mls @ 100 mls/hr IVPB Q24H [facility] Ipratropium [place] (Atrovent 0.5 Mg Neb.Silvana*) 0.5 mg INH Q4H PRN PRN Reason: SOB/WHEEZING Levalbuterol HCl (Xopenex 1.25 Mg/0.5 Ml Neb.Silvana*) 1.25 mg INH Q4H PRN PRN Reason: SOB/WHEEZING Last Admin: 06/29/19 04:54 Dose: 1.25 mg Methylprednisolone Sodium Succinate (Solu-Medrol 40 Mg) 40 mg IV Q12H [facility] Last Admin: 06/29/19 06:16 Dose: 40 mg Nicotine (Nicotine Patch 14 Mg/24 Hr*) 1 patch TRANSDERM DAILY [facility] Last Admin: 06/29/19 08:04 Dose: 1 patch Pharmacy Profile Note (Nicotine Patch Removal Note*) 1 note PATCH OFF 2100 [facility] Vital Signs - 8 hr 06/29/19 06/29/19 06/29/19 02:12 02:26 02:27 Temperature 97.4 F Pulse Rate 77 78 Respiratory 29 25 Rate Blood Pressure 81/47 96/51 (mmHg) O2 Sat by Pulse 97 98 Oximetry 06/29/19 06/29/19 06/29/19 02:42 02:57 03:00 Temperature Pulse Rate 86 79 79 Respiratory 21 31 27 Rate Blood Pressure 121/73 88/45 (mmHg) O2 Sat by Pulse 98 95 96 Oximetry 06/29/19 06/29/19 06/29/19 03:04 03:12 03:28 Temperature Pulse Rate 78 78 76 Respiratory 27 31 28 Rate Blood Pressure 96/53 101/50 (mmHg) O2 Sat by Pulse 98 97 97 Oximetry 06/29/19 06/29/19 06/29/19 03:36 03:43 03:57 Temperature 96.0 F Pulse Rate 94 75 74 Respiratory 32 28 28 Rate Blood Pressure 117/85 82/54 81/52 (mmHg) O2 Sat by Pulse 97 98 96 Oximetry 06/29/19 06/29/19 06/29/19 04:00 04:12 04:27 Temperature 97.4 F Pulse Rate 74 72 72 Respiratory 28 13 18 Rate Blood Pressure 94/54 95/54 (mmHg) O2 Sat by Pulse 96 98 98 Oximetry 06/29/19 06/29/19 06/29/19 04:57 07:58 09:24 Temperature 97.7 F Pulse Rate 94 89 Respiratory 16 24 Rate Blood Pressure 98/46 102/56 (mmHg) O2 Sat by Pulse 98 95 Oximetry Oxygen Devices in Use Now: High Flow Nasal Cannula Appearance: Obese, white male, laying in hospital bed, appearing in minimal distress, tachypneic Eyes: No Scleral Icterus, PERRLA Ears/Nose/Mouth/Throat: Mucous Membranes Moist Neck: NL Appearance and Movements; NL JVP Respiratory: Symmetrical Chest Expansion and Respiratory Effort, - - lungs with crackles in anterior chest bilaterally; lungs clear posteriorly but somewhat diminished lung sounds Cardiovascular: NL Sounds; No Murmurs; No JVD, RRR Abdominal: - - abd soft, nontender, nondistended Extremities: No Edema, No Clubbing, Cyanosis Skin: No Rash or Ulcers Neurological: Alert and Oriented x 3, NL Muscle Strength and Tone Result Diagrams: 06/29/19 06:43 06/29/19 06:43 Additional Lab and Data: Lab Results 06/28/19 06/28/19 06/28/19 Range/Units 19:36 19:36 19:36 WBC 26.3 H (3.5-10.8) 10^3/uL RBC 4.72 (4.18-5.48) 10^6 /uL Hgb 14.4 (14.0-18.0) g/dL Hct 43 (42-52) % MCV 91 (80-94) fL MCH 31 (27-31) pg MCHC 34 (31-36) g/dL RDW 15 (10-15) % Plt Count 305 (150-450) 10^3/uL MPV 7.7 (7.4-10.4) fL Neut % (Auto) 89.5 % Lymph % (Auto) 4.0 % [place] % (Auto) 6.0 % Eos % (Auto) 0.2 % Baso % (Auto) 0.3 % Absolute Neuts (auto) 23.6 H (1.5-7.7) 10^3/ul Absolute Lymphs (auto) 1.1 (1.0-4.8) 10^3/ul Absolute Monos (auto) 1.6 H (0-0.8) 10^3/ul Absolute Eos (auto) 0.1 (0-0.6) 10^3/ul Absolute Basos (auto) 0.1 (0-0.2) 10^3/ul Absolute Nucleated RBC 0.0 10^3/ul Nucleated RBC % 0.0 VBG pH (7.32-7.43) VBG pCO2 (41-51) mmHg VBG pO2 (35-45) mmHg VBG HCO3 (24-28) mmol/L VBG O2 Saturation (70-80) % VBG Base Excess (0.0-4.0) mmol/L Sodium 132 L (135-145) mmol/L Potassium 3.6 (3.5-5.0) mmol/L Chloride 95 L (101-111) mmol/L Carbon Dioxide 24 (22-32) mmol/L Anion Gap 13 H (2-11) mmol/L BUN 27 H (6-24) mg/dL Creatinine 1.30 H (0.67-1.17) mg/dL Est GFR ( Amer) 67.7 (>60) Est GFR (Non-Af Amer) 55.9 (>60) BUN/Creatinine Ratio 20.8 H (8-20) Glucose 140 H (70-100) mg/dL Lactic Acid 1.5 (0.5-2.0) mmol/L Calcium 9.1 (8.6-10.3) mg/dL Total Bilirubin 0.90 (0.2-1.0) mg/dL AST 49 H (13-39) U/L ALT 57 H (7-52) U/L Alkaline Phosphatase 100 (34-104) U/L Troponin I 0.05 H* (<0.04) ng/mL B-Natriuretic Peptide (<=100) pg/mL Total Protein 7.2 (6.4-8.9) g/dL Albumin 3.8 (3.2-5.2) g/dL Globulin 3.4 (2-4) g/dL Albumin/Globulin Ratio 1.1 (1-3) 06/28/19 06/28/19 Range/Units 19:36 19:36 WBC (3.5-10.8) 10^3/uL RBC (4.18-5.48) 10^6 /uL Hgb (14.0-18.0) g/dL Hct (42-52) % MCV (80-94) fL MCH (27-31) pg MCHC (31-36) g/dL RDW (10-15) % Plt Count (150-450) 10^3/uL MPV (7.4-10.4) fL Neut % (Auto) % Lymph % (Auto) % [place] % (Auto) % Eos % (Auto) % Baso % (Auto) % Absolute Neuts (auto) (1.5-7.7) 10^3/ul Absolute Lymphs (auto) (1.0-4.8) 10^3/ul Absolute Monos (auto) (0-0.8) 10^3/ul Absolute Eos (auto) (0-0.6) 10^3/ul Absolute Basos (auto) (0-0.2) 10^3/ul Absolute Nucleated RBC 10^3/ul Nucleated RBC % VBG pH 7.46 H (7.32-7.43) VBG pCO2 37 L (41-51) mmHg VBG pO2 < 38.0 (35-45) mmHg VBG HCO3 25.9 (24-28) mmol/L VBG O2 Saturation 64.3 L (70-80) % VBG Base Excess 2.5 (0.0-4.0) mmol/L Sodium (135-145) mmol/L Potassium (3.5-5.0) mmol/L Chloride (101-111) mmol/L Carbon Dioxide (22-32) mmol/L Anion Gap (2-11) mmol/L BUN (6-24) mg/dL Creatinine (0.67-1.17) mg/dL Est GFR ( Amer) (>60) Est GFR (Non-Af Amer) (>60) BUN/Creatinine Ratio (8-20) Glucose (70-100) mg/dL Lactic Acid (0.5-2.0) mmol/L Calcium (8.6-10.3) mg/dL Total Bilirubin (0.2-1.0) mg/dL AST (13-39) U/L ALT (7-52) U/L Alkaline Phosphatase (34-104) U/L Troponin I (<0.04) ng/mL B-Natriuretic Peptide 101 H (<=100) pg/mL Total Protein (6.4-8.9) g/dL Albumin (3.2-5.2) g/dL Globulin (2-4) g/dL Albumin/Globulin Ratio (1-3) Microbiology and Other Data: Microbiology 06/29/19 05:38 Legionella Urinary Antigen - Final Urine Negative Legionella Antigen 06/29/19 05:38 Streptococcus pneumoniae Ag Screen - Final Urine Negative S. pneumo Antigen Assess/Plan/Problems-Billing Assessment: 63 yo male with PMHx COPD on 3L, current smoker, and nonsustained Vtach presents with fever found to have sepsis 2/2 pneumonia. - Patient Problems (1) Sepsis Current Visit: No Status: Acute Comment: -sepsis secondary to left-sided pneumonia -still with hypotension after full sepsis fluid bolus, but MAP is>90 -giving additional 1L NS bolus and will continue to monitor BP -further PNA treatment below (2) Pneumonia Current Visit: Yes Status: Acute Code(s): J18.9 - PNEUMONIA, UNSPECIFIED ORGANISM SNOMED Code(s): 811852636 Comment: -left-sided PNA on CXR -fever is resolved but symptomatically with fever/chills still this morning. Leukocytosis is improved -persistently hypotensive but maintaining MAP>90 as discussed above -hx of h. influenzae in the past. Sputum culture is pending. Urine antigens are negative -continue azithromycin and ceftriaxone (3) COPD exacerbation Current Visit: No Status: Acute Code(s): J44.1 - CHRONIC OBSTRUCTIVE PULMONARY DISEASE W (ACUTE) EXACERBATION SNOMED Code(s): 415859394 Comment: -secondary to pneumonia -scheduling ipratropium nebulizers q4h while awake -continue solumedrol, will likely change to prednisone tomorrow if improving -patient takes trelegy ellipta at home, continuing hospital equivalent inhalers -uses 3L oxygen at home, on 4L now but with some mild respiratory distress -ordering flutter valve -ordering claritin and flonase to assist with nasal congestion to improve oxygen delivery. Patient has good oxygen saturations despite patient's concern of this (4) RBBB Current Visit: Yes Status: Acute Code(s): I45.10 - UNSPECIFIED RIGHT BUNDLE- BRANCH BLOCK SNOMED Code(s): 32737969 Comment: -new RBBB on EKG at admission -echo without changes form 2012; EF 50-55%, no wall motion abnormalities, no diastolic dysfunction, no mod-severe valve abnormalities -likely due to right heart strain in setting of PNA and COPD exacerbation (5) Nonsustained ventricular tachycardia Current Visit: Yes Status: Acute Code(s): I47.2 - VENTRICULAR TACHYCARDIA SNOMED Code(s): 760283547 Comment: -patient has PMHx nonsustained Vtach which he takes metoprolol for -holding home metoprolol in setting of hypotension related to sepsis -continue telemetry. No events thus far (6) Smoking 1/2 pack a day or less Current Visit: Yes Status: Acute Code(s): F17.210 - NICOTINE DEPENDENCE, CIGARETTES, UNCOMPLICATED SNOMED Code(s): 902817464 Comment: -discussed smoking cessation and health benefits -declines nicotine gum -continue nicotine patch (7) DVT prophylaxis Current Visit: No Status: Acute Code(s): JVE5233 - SNOMED Code(s): 243749887 Comment: -lovenox (8) Full code status Current Visit: Yes Status: Acute Code(s): Z78.9 - OTHER SPECIFIED HEALTH STATUS SNOMED Code(s): 716219758
[2019-06-29] MEDS ORDERED: VILANTEROL INH SCH (10:30)
[2019-06-29] MEDS ORDERED: FLUTICASONE FUROATE INH SCH (10:30)
[2019-06-29] MEDS: Cetirizine* 10 MG TAB PO SCH (11:30)
[2019-06-29] MEDS: Fluticasone NASAL SPRAY 50MCG* 16 gm SPRAY BTL BOTH NARES SCH (11:30)
[2019-06-29] MEDS: Ipratropium 0.5MG/2.5ML NEB* 0.5 MG/2.5 ML NEB.SOLN INH SCH ×4 (11:47→23:18)
--- NOTE | 2019-06-29 14:38 | ECHO ---
*[facility]* [place] [address] Fax #: [phone] Transthoracic Echocardiogram Patient: Lorenzo Tavares : 1955 Study Date: 06/29/2019 Age: 63 Gender: M HR: 89 bpm Height: 69 in /175.3 cm BSA: 2.4 m^2 Weight: 249.5 lb /113.4 kg BMI: 36.9 kg/m^2 *Vacuum Drier Operator: * Menhaz Hoffman RDCS RN *Referring Physician: * Kd Poole *Reading Physician: * Jad Laboy MD Indications: SOB. History: Admitted with pneumonia. Chronic obstructive pulmonary disease. Risk factors: Current tobacco use. Conclusions Summary: - Left ventricle: Systolic function is at the lower limits of normal. The estimated ejection fraction is 50-55%. Wall motion is normal; there are no regional wall motion abnormalities. - Right ventricle: Systolic function is low normal. - Ventricular septum: There is mild septal flattening. - Mitral valve: There is no regurgitation. - Aortic valve: There is no evidence of stenosis. There is no regurgitation. - Tricuspid valve: There is trace to mild regurgitation. - Pericardium, extracardiac: There is no pericardial effusion. - Pulmonary arteries: Systolic pressure can not be accurately estimated. - Compared to study of 06/09/13, there is little change. Study data: Transthoracic echocardiogram. Procedure: Transthoracic echocardiography was performed. The study was technically limited due to poor acoustic windows, body habitus, and COPD. The images were obtained from a low parasternal window and the subcostal view. Complete 2D, spectral Doppler, and color flow Doppler. Location: Bedside. Patient status: Inpatient. Patient room number: 416-01. Rhythm: Normal sinus rhythm with PAC's. Findings Left ventricle: The cavity size is mildly reduced. Wall thickness is normal. Systolic function is at the lower limits of normal. The estimated ejection fraction is 50-55%. Wall motion is normal; there are no regional wall motion abnormalities. There is no consistent Doppler evidence of clinically significant diastolic dysfunction. Right ventricle: The cavity size is mildly dilated. Wall thickness is mildly increased. Systolic function is low normal. Ventricular septum: There is mild septal flattening. Left atrium: The atrium is normal in size. Right atrium: The atrium is normal in size. Mitral valve: The leaflets are mildly thickened. There is no evidence of stenosis. There is no regurgitation. Aortic valve: The annulus is mildly calcified. The valve is trileaflet. The leaflets are mildly thickened. There is no evidence of stenosis. There is no regurgitation. Tricuspid valve: The valve is structurally normal. There is no evidence of stenosis. There is trace to mild regurgitation. Pulmonic valve: The valve is structurally normal. There is no evidence of stenosis. There is mild regurgitation. Aorta: Aortic root: The aortic root is not dilated. Ascending aorta: The ascending aorta is not visualized. Aortic arch: The aortic arch is not visualized. Pericardium: There is no pericardial effusion. Pulmonary arteries: The main pulmonary artery is normal-sized. Systolic pressure can not be accurately estimated. Systemic veins: Inferior vena cava: The vessel is normal in size. There is (>= 50%) respiratory change in the IVC dimension. Measurements Left ventricle Value Ref Right atrium Value Ref ERIK, LAX (L) 3.9 cm 4.2 - ML dim, ES, A4C 4.0 cm 2.6 - 4.4 5.8 SI dim, ES, A4C 5.2 cm 3.4 - 5.3 ESD, LAX 2.7 cm 2.5 - 4.0 Aortic valve Value Ref FS, LAX 30 % 25 - 43 Peak v, S 0.96 m/sec --------- PW, ED 1.0 cm 0.6 - VTI, S 15.9 cm --------- 1.0 Mean grad, S 2.2 mm Hg --------- IVS/PW, ED 1.04 ------- Peak grad, S 3.7 mm Hg --------- E', lat [place], TDI (L) 6.0 cm/sec >=10.0 LVOT/AV, VTI ratio 0.88 --- ------ E/e', lat [place], TDI 11 ------- Mitral valve Value Ref LVOT Value Ref Peak E 0.65 m/sec --------- Peak terence, S 0.79 m/sec ------- Peak A 0.79 m/sec --------- VTI, S 14.0 cm ------- Decel time 202 ms --------- Peak grad, S 3 mm Hg ------- Peak E/A ratio 0.82 --------- Mean grad, S 1 mm Hg ------- Pulmonic valve Value Ref Ventricular septum Value Ref Peak v, S 0.88 m/sec --------- IVS, ED 1.0 cm 0.6 - Peak grad, S 3.1 mm Hg --------- 1.0 Aortic root Value Ref Right ventricle Value Ref Root diam 3.6 cm <4.4 AW thickness, ED (H) 0.8 cm 0.1 - 0.5 Inferior vena cava Value Ref ERIK, LAX 4.2 cm ------- Diam 1.8 cm --------- ERIK minor ax, A4C 3.5 cm 1.9 - mid 3.5 Left atrium Value Ref SI dim ES, LAX 2.7 cm ------- ML dim, A4C 3.3 cm ------- SI dim, A4C 4.8 cm ------- Legend: (L) and (H) rocio values outside specified reference range. Prepared and electronically signed by Jad Laboy MD 06/29/2019 14:38
[2019-06-29] MEDS: FLUTICASONE/UMECLIDIN/VILANTER 1 PUFF MDI INH SCH (15:22)
[2019-06-29] MEDS: cefTRIAXone(*) 1 GM in NS 0.9% 50 ML* 50 ML IVPB SCH (19:59)
[2019-06-29] MEDS: Azithromycin 500 mg/250 ml NS 500 MG/250 ML BAG IVPB SCH (21:08)
[2019-06-29] MEDS: guaiFENesin ER TAB 600 MG PO SCH (21:17)
[2019-06-29] MEDS: Nicotine Patch Removal NOTE PATCH OFF SCH (21:18)
[2019-06-29] MEDS: Melatonin 3 MG TAB PO SCH (23:46)
[2019-06-29] MEDS: traMADol TAB* 50 MG PO PRN (23:46)
[2019-06-30] MEDS: Ipratropium 0.5MG/2.5ML NEB* 0.5 MG/2.5 ML NEB.SOLN INH SCH ×2 (03:19→07:42)
[2019-06-30] MEDS: methylPREDNISolone SOD 40 MG* 1 ML VIAL IV SCH (03:40)
[2019-06-30] MEDS: Enoxaparin(*) 40 MG/0.4 ML SYR SUBCUT SCH ×2 (06:10→07:29)
[2019-06-30 06:12] LABS: Hematocrit 38 % (42-52); Hemoglobin 12.5 g/dL (14.0-18.0); Mean Corpuscular HGB Conc 33 g/dL (31-36); Mean Corpuscular Hemoglobin 31 pg (27-31); Mean Corpuscular Volume 92 fL (80-94); Platelet Count 293 10^3/uL (150-450); Red Cell Distribution Width 15 % (10-15); White Blood Count 23.7 10^3/uL (3.5-10.8)
[2019-06-30 06:26] LABS: Calcium 7.9 mg/dL (8.6-10.3)
[2019-06-30 06:31] LABS: BUN/Creatinine Ratio 27.5 (8-20); EGFR African American 118.5 (>60)
[2019-06-30 07:16] LABS: ABS Lymphocytes 0.7 10^3/ul (1.0-4.8); ABS Neutrophils 21.9 10^3/ul (1.5-7.7); Eosinophil % 0.1 %; Lymphocyte % 3.1 %
[2019-06-30] MEDS: Cetirizine* 10 MG TAB PO SCH (07:28)
[2019-06-30] MEDS: traMADol TAB* 50 MG PO PRN (07:28)
[2019-06-30] MEDS: guaiFENesin ER TAB 600 MG PO SCH ×2 (07:28→21:45)
[2019-06-30] MEDS: Fluticasone NASAL SPRAY 50MCG* 16 gm SPRAY BTL BOTH NARES SCH (07:28)
[2019-06-30] MEDS: Nicotine PATCH 14 MG/24 HR* PATCH TRANSDERM SCH ×2 (07:28→20:18)
[2019-06-30] MEDS: Levalbuterol 1.25MG/0.5ML NEB INH PRN (07:42)
[2019-06-30] MEDS: FLUTICASONE/UMECLIDIN/VILANTER 1 PUFF MDI INH SCH (07:54)
[2019-06-30] MEDS ORDERED: NS 0.9% 1000 ML** 1,000 ML IV ONE (12:17)
[2019-06-30] MEDS ORDERED: Nicotine Lozenge* mini 2 MG LOZNG.MINI MT PRN (12:17)
[2019-06-30] MEDS: Albuterol/Ipratropium NEB.SOL* Albuterol 2.5 MG/Ipratropium 0.5 MG 3 ML INH SCH ×2 (13:43→19:24)
--- NOTE | 2019-06-30 13:51 | PN ---
Subjective Date of Service: 06/30/19 Interval History: Patient's cough does continue, but he is concerned because the cough still feels wet but he is not able to bring up sputum. He feels his breathing is more comfortable today. Denies chest pain, difficulty breathing at rest, abd pain, fever/chills. Objective Active Medications: Acetaminophen (Tylenol Tab*) 650 mg PO Q4H PRN PRN Reason: MILD PAIN or TEMP > 100.4 Last Admin: 06/29/19 21:15 Dose: 650 mg Albuterol/Ipratropium (Duoneb (Albuterol 2.5 Mg/Ipratropium 0.5 Mg)) 1 neb INH [id number] AWAKE [facility] Last Admin: 06/30/19 13:43 Dose: 1 neb Cetirizine HCl (Zyrtec*) 10 mg PO DAILY [facility] Last Admin: 06/30/19 07:28 Dose: 10 mg Enoxaparin Sodium (Lovenox(*)) 40 mg SUBCUT Q24HR [facility] Last Admin: 06/30/19 07:29 Dose: 40 mg Fluticasone Propionate (Flonase Nasal [place] 50mcg*) 2 spray BOTH NARES DAILY [facility] Last Admin: 06/30/19 07:28 Dose: 2 spray Guaifenesin (Mucinex*) 1,200 mg PO BID [facility] Last Admin: 06/30/19 07:28 Dose: 1,200 mg Azithromycin (Zithromax 500 Mg/250 Ml) 500 mg in 250 mls @ 250 mls/hr IVPB Q24H [facility] Last Admin: 06/29/19 21:08 Dose: 250 mls/hr Ceftriaxone Sodium 1 gm/ (Sodium Chloride) 50 mls @ 100 mls/hr IVPB Q24H [facility] Last Admin: 06/29/19 19:59 Dose: 100 mls/hr Levalbuterol HCl (Xopenex 1.25 Mg/0.5 Ml Neb.Silvana*) 1.25 mg INH Q4H PRN PRN Reason: SOB/WHEEZING Last Admin: 06/30/19 07:42 Dose: 1.25 mg Melatonin (Melatonin) 3 mg PO BEDTIME [facility] Last Admin: 06/29/19 23:46 Dose: 3 mg Methylprednisolone Sodium Succinate (Solu-Medrol 40 Mg) 40 mg IV Q12H [facility] Last Admin: 10/08/19 03:40 Dose: 40 mg Nicotine (Nicotine Patch 14 Mg/24 Hr*) 1 patch TRANSDERM DAILY [facility] Last Admin: 06/30/19 07:28 Dose: 1 patch Nicotine Polacrilex (Nicotine Lozenge Mini) 2 mg MT Q2H PRN PRN Reason: CRAVING Pharmacy Profile Note (Nicotine Patch Removal Note*) 1 note PATCH OFF 2100 [facility] Last Admin: 06/29/19 21:18 Dose: Not Given Tramadol HCl (Ultram*) 50 mg PO Q6H PRN PRN Reason: PAIN - MODERATE Last Admin: 06/30/19 07:28 Dose: 50 mg Vital Signs - 8 hr 06/30/19 06/30/19 06/30/19 05:58 07:28 07:46 Temperature 97.6 F Pulse Rate 87 97 Respiratory 23 24 20 Rate Blood Pressure 100/61 (mmHg) O2 Sat by Pulse 95 98 Oximetry 06/30/19 06/30/19 06/30/19 08:00 09:35 11:19 Temperature 97.1 F Pulse Rate 94 Respiratory 22 24 24 Rate Blood Pressure 98/50 (mmHg) O2 Sat by Pulse 95 Oximetry Oxygen Devices in Use Now: Nasal Cannula Appearance: Obese, white male, laying upright in bed, appearing in NAD; evidently dyspneic when talking Eyes: No Scleral Icterus, PERRLA Ears/Nose/Mouth/Throat: Mucous Membranes Moist Neck: NL Appearance and Movements; NL JVP Respiratory: Symmetrical Chest Expansion and Respiratory Effort, Clear to Auscultation Cardiovascular: NL Sounds; No Murmurs; No JVD, RRR Abdominal: - - abd soft, nontender, nondistended Extremities: No Edema, No Clubbing, Cyanosis Skin: No Rash or Ulcers Neurological: Alert and Oriented x 3, NL Muscle Strength and Tone Result Diagrams: 06/30/19 05:57 06/30/19 05:57 Additional Lab and Data: Lab Results 06/28/19 06/28/19 06/28/19 Range/Units 19:36 19:36 19:36 WBC 26.3 H (3.5-10.8) 10^3/uL RBC 4.72 (4.18-5.48) 10^6 /uL Hgb 14.4 (14.0-18.0) g/dL Hct 43 (42-52) % MCV 91 (80-94) fL MCH 31 (27-31) pg MCHC 34 (31-36) g/dL RDW 15 (10-15) % Plt Count 305 (150-450) 10^3/uL MPV 7.7 (7.4-10.4) fL Neut % (Auto) 89.5 % Lymph % (Auto) 4.0 % [place] % (Auto) 6.0 % Eos % (Auto) 0.2 % Baso % (Auto) 0.3 % Absolute Neuts (auto) 23.6 H (1.5-7.7) 10^3/ul Absolute Lymphs (auto) 1.1 (1.0-4.8) 10^3/ul Absolute Monos (auto) 1.6 H (0-0.8) 10^3/ul Absolute Eos (auto) 0.1 (0-0.6) 10^3/ul Absolute Basos (auto) 0.1 (0-0.2) 10^3/ul Absolute Nucleated RBC 0.0 10^3/ul Nucleated RBC % 0.0 VBG pH (7.32-7.43) VBG pCO2 (41-51) mmHg VBG pO2 (35-45) mmHg VBG HCO3 (24-28) mmol/L VBG O2 Saturation (70-80) % VBG Base Excess (0.0-4.0) mmol/L Sodium 132 L (135-145) mmol/L Potassium 3.6 (3.5-5.0) mmol/L Chloride 95 L (101-111) mmol/L Carbon Dioxide 24 (22-32) mmol/L Anion Gap 13 H (2-11) mmol/L BUN 27 H (6-24) mg/dL Creatinine 1.30 H (0.67-1.17) mg/dL Est GFR ( Amer) 67.7 (>60) Est GFR (Non-Af Amer) 55.9 (>60) BUN/Creatinine Ratio 20.8 H (8-20) Glucose 140 H (70-100) mg/dL Lactic Acid 1.5 (0.5-2.0) mmol/L Calcium 9.1 (8.6-10.3) mg/dL Total Bilirubin 0.90 (0.2-1.0) mg/dL AST 49 H (13-39) U/L ALT 57 H (7-52) U/L Alkaline Phosphatase 100 (34-104) U/L Troponin I 0.05 H* (<0.04) ng/mL B-Natriuretic Peptide (<=100) pg/mL Total Protein 7.2 (6.4-8.9) g/dL Albumin 3.8 (3.2-5.2) g/dL Globulin 3.4 (2-4) g/dL Albumin/Globulin Ratio 1.1 (1-3) 06/28/19 06/28/19 Range/Units 19:36 19:36 WBC (3.5-10.8) 10^3/uL RBC (4.18-5.48) 10^6 /uL Hgb (14.0-18.0) g/dL Hct (42-52) % MCV (80-94) fL MCH (27-31) pg MCHC (31-36) g/dL RDW (10-15) % Plt Count (150-450) 10^3/uL MPV (7.4-10.4) fL Neut % (Auto) % Lymph % (Auto) % [place] % (Auto) % Eos % (Auto) % Baso % (Auto) % Absolute Neuts (auto) (1.5-7.7) 10^3/ul Absolute Lymphs (auto) (1.0-4.8) 10^3/ul Absolute Monos (auto) (0-0.8) 10^3/ul Absolute Eos (auto) (0-0.6) 10^3/ul Absolute Basos (auto) (0-0.2) 10^3/ul Absolute Nucleated RBC 10^3/ul Nucleated RBC % VBG pH 7.46 H (7.32-7.43) VBG pCO2 37 L (41-51) mmHg VBG pO2 < 38.0 (35-45) mmHg VBG HCO3 25.9 (24-28) mmol/L VBG O2 Saturation 64.3 L (70-80) % VBG Base Excess 2.5 (0.0-4.0) mmol/L Sodium (135-145) mmol/L Potassium (3.5-5.0) mmol/L Chloride (101-111) mmol/L Carbon Dioxide (22-32) mmol/L Anion Gap (2-11) mmol/L BUN (6-24) mg/dL Creatinine (0.67-1.17) mg/dL Est GFR ( Amer) (>60) Est GFR (Non-Af Amer) (>60) BUN/Creatinine Ratio (8-20) Glucose (70-100) mg/dL Lactic Acid (0.5-2.0) mmol/L Calcium (8.6-10.3) mg/dL Total Bilirubin (0.2-1.0) mg/dL AST (13-39) U/L ALT (7-52) U/L Alkaline Phosphatase (34-104) U/L Troponin I (<0.04) ng/mL B-Natriuretic Peptide 101 H (<=100) pg/mL Total Protein (6.4-8.9) g/dL Albumin (3.2-5.2) g/dL Globulin (2-4) g/dL Albumin/Globulin Ratio (1-3) Microbiology and Other Data: Microbiology 06/29/19 05:38 Legionella Urinary Antigen - Final Urine Negative Legionella Antigen 06/29/19 05:38 Streptococcus pneumoniae Ag Screen - Final Urine Negative S. pneumo Antigen Assess/Plan/Problems-Billing Assessment: 63 yo male with PMHx COPD on 3L, current smoker, and nonsustained Vtach presents with fever found to have sepsis 2/2 pneumonia. - Patient Problems (1) Sepsis Current Visit: No Status: Acute Comment: -sepsis secondary to left-sided pneumonia -does continue to have hypotension at times today, though MAP is >90 -giving additional 1L NS bolus today and will continue to monitor BP -further PNA treatment below (2) Pneumonia Current Visit: Yes Status: Acute Code(s): J18.9 - PNEUMONIA, UNSPECIFIED ORGANISM SNOMED Code(s): 267440990 Comment: -left-sided PNA on CXR -fever is resolved but symptomatically with fever/chills still this morning. Leukocytosis is improved -persistently hypotensive but maintaining MAP>90 as discussed above -hx of h. influenzae in the past. Sputum culture is pending. Urine antigens are negative -continue azithromycin and ceftriaxone (3) COPD exacerbation Current Visit: No Status: Acute Code(s): J44.1 - CHRONIC OBSTRUCTIVE PULMONARY DISEASE W (ACUTE) EXACERBATION SNOMED Code(s): 713005285 Comment: -secondary to pneumonia -continue scheduled ipratropium nebulizers q4h while awake -changing solumedrol to po prednisone -patient takes trelegy ellipta at home, continuing hospital equivalent inhalers -using baseline oxygen via NC (3L); dyspnea is improved but is mildly dyspneic with talking -ordering flutter valve -continue flonase to assist with nasal congestion to improve oxygen delivery. Patient has good oxygen saturations despite patient's concern of this. Discontinuing cetirizine per pt request (4) RBBB Current Visit: Yes Status: Acute Code(s): I45.10 - UNSPECIFIED RIGHT BUNDLE- BRANCH BLOCK SNOMED Code(s): 84923888 Comment: -new RBBB on EKG at admission -echo without changes form 2012; EF 50-55%, no wall motion abnormalities, no diastolic dysfunction, no mod-severe valve abnormalities -likely due to right heart strain in setting of PNA and COPD exacerbation (5) Nonsustained ventricular tachycardia Current Visit: Yes Status: Acute Code(s): I47.2 - VENTRICULAR TACHYCARDIA SNOMED Code(s): 477742289 Comment: -patient has PMHx nonsustained Vtach which he takes metoprolol for -holding home metoprolol in setting of hypotension related to sepsis -continue telemetry. No events thus far (6) Smoking 1/2 pack a day or less Current Visit: Yes Status: Acute Code(s): F17.210 - NICOTINE DEPENDENCE, CIGARETTES, UNCOMPLICATED SNOMED Code(s): 098669123 Comment: -discussed smoking cessation and health benefits -declines nicotine gum -continue nicotine patch, will order nicotine lozenge (7) DVT prophylaxis Current Visit: No Status: Acute Code(s): HTX8891 - SNOMED Code(s): 064281236 Comment: -lovenox (8) Full code status Current Visit: Yes Status: Acute Code(s): Z78.9 - OTHER SPECIFIED HEALTH STATUS SNOMED Code(s): 914139285
[2019-06-30] MEDS: cefTRIAXone(*) 1 GM in NS 0.9% 50 ML* 50 ML IVPB SCH (19:37)
[2019-06-30] MEDS: Nicotine Patch Removal NOTE PATCH OFF SCH (19:40)
[2019-06-30] MEDS: Azithromycin 500 mg/250 ml NS 500 MG/250 ML BAG IVPB SCH (20:17)
[2019-06-30] MEDS: Melatonin 3 MG TAB PO SCH (21:45)
[2019-07-01] MEDS: Albuterol/Ipratropium NEB.SOL* Albuterol 2.5 MG/Ipratropium 0.5 MG 3 ML INH SCH ×4 (00:36→19:12)
[2019-07-01] MEDS ORDERED: Acetylcysteine INHALATION SOL* 200 MG/ML NEB.SOLN 10 ML INH PRN (02:18)
[2019-07-01] MEDS: Levalbuterol 1.25MG/0.5ML NEB INH PRN (03:19)
[2019-07-01] MEDS: traMADol TAB* 50 MG PO PRN ×2 (04:31→11:06)
[2019-07-01] MEDS: FLUTICASONE/UMECLIDIN/VILANTER 1 PUFF MDI INH SCH (07:09)
[2019-07-01] MEDS ORDERED: Metoprolol Tartrate TAB* 100 MG TAB PO SCH (09:00)
[2019-07-01] MEDS ORDERED: predniSONE TAB* 50 MG PO SCH (09:00)
--- NOTE | 2019-07-01 09:01 | PN ---
Subjective Date of Service: 07/01/19 Interval History: Mr. Tavares is feeling poor this morning. He reports constant SOB, worse while talking and when getting in and out of bed. He has had a lot of difficulty moving around. Coughing fits causing some mid-sternal chest pain, but no CP currently. He does typically use BiPAP at night and has not been on this while in the hospital. Increased SOB and work of breathing overnight, subsequently transferred to ICU. Nursing called this morning with reports of dyspnea, requesting order for Vapotherm and BiPAP for overnight. Tele: Sinus tachycardia 130s. Family History: Unchanged from Admission Social History: Unchanged from Admission Past Medical History: Unchanged from Admission Objective Active Medications: Acetaminophen (Tylenol Tab*) 650 mg PO Q4H PRN MILD PAIN or TEMP > 100.4 Acetylcysteine (Mucomyst Inhalation Silvana*) 400 mg INH Q4H PRN CONGESTION Albuterol/Ipratropium (Duoneb (Albuterol 2.5 Mg/Ipratropium 0.5 Mg)) 1 neb INH [id number] AWAKE MORGAN Enoxaparin Sodium (Lovenox(*)) 40 mg SUBCUT Q24HR MORGAN Fluticasone Propionate (Flonase Nasal [place] 50mcg*) 2 spray BOTH NARES DAILY MORGAN Guaifenesin (Mucinex*) 1,200 mg PO BID MORGAN Azithromycin (Zithromax 500 Mg/250 Ml) 500 mg in 250 mls @ 250 mls/hr IVPB Q24H MORGAN Ceftriaxone Sodium 1 gm/ (Sodium Chloride) 50 mls @ 100 mls/hr IVPB Q24H M[facility]GAN Levalbuterol HCl (Xopenex 1.25 Mg/0.5 Ml Neb.Silvana*) 1.25 mg INH Q4H PRN SOB/ WHEEZING Melatonin (Melatonin) 3 mg PO BEDTIME MORGAN Metoprolol Tartrate (Lopressor Tab*) 100 mg PO Q12HR MORGAN Nicotine (Nicotine Patch 14 Mg/24 Hr*) 1 patch TRANSDERM BEDTIME MORGAN Nicotine Polacrilex (Nicotine Lozenge Mini) 2 mg MT Q2H PRN CRAVING Prednisone (Deltasone Tab*) 50 mg PO DAILY MORGAN Tramadol HCl (Ultram*) 50 mg PO Q6H PRN PAIN - MODERATE Vital Signs - 8 hr 07/01/19 07/01/19 07/01/19 03:00 03:02 03:09 Temperature 98.4 F 98.4 F Pulse Rate 146 129 Respiratory 32 26 24 Rate Blood Pressure 142/85 142/85 (mmHg) O2 Sat by Pulse 89 92 Oximetry 07/01/19 07/01/19 07/01/19 03:16 03:30 03:38 Temperature Pulse Rate 138 137 138 Respiratory 26 25 17 Rate Blood Pressure 130/110 133/71 (mmHg) O2 Sat by Pulse 90 97 93 Oximetry 07/01/19 07/01/19 07/01/19 03:45 04:00 04:34 Temperature Pulse Rate 137 129 Respiratory 26 38 32 Rate Blood Pressure 102/68 109/62 (mmHg) O2 Sat by Pulse 94 94 Oximetry 07/01/19 07/01/19 07/01/19 07:00 07:02 07:09 Temperature 100.1 F Pulse Rate 129 128 132 Respiratory 23 22 26 Rate Blood Pressure 113/61 (mmHg) O2 Sat by Pulse 92 92 92 Oximetry 07/01/19 08:00 Temperature 99.4 F Pulse Rate Respiratory 32 Rate Blood Pressure (mmHg) O2 Sat by Pulse Oximetry Oxygen Devices in Use Now: High Flow Nasal Cannula - 10L Appearance: Middle-aged male laying in bed, significant dyspnea at rest, worse while talking Ears/Nose/Mouth/Throat: Mucous Membranes Moist Neck: NL Appearance and Movements; NL JVP, Trachea Midline Respiratory: Symmetrical Chest Expansion and Respiratory Effort, - - Crackles bilat bases, L>R, diminished throughout Cardiovascular: NL Sounds; No Murmurs; No JVD Abdominal: NL Sounds; No Tenderness; No Distention Extremities: No Edema Neurological: Alert and Oriented x 3 Lines/Tubes/Other Access: Clean, Dry and Intact Peripheral IV Nutrition: Taking PO's Result Diagrams: 06/30/19 05:57 06/30/19 05:57 Assess/Plan/Problems-Billing Assessment: Mr. Tavares is a 63 yo M with PMH of COPD with chronic respiratory failure on 3L, LAMONT on BiPAP, current smoker, and nonsustained VT; who presented with fever found to have sepsis 2/2 pneumonia. - Patient Problems (1) Acute and chronic respiratory failure with hypoxia Code(s): J96.21 - ACUTE AND CHRONIC RESPIRATORY FAILURE WITH HYPOXIA Comment: - Baseline 3L during the day, BiPAP at night - Secondary to pneumonia and COPD exacerbation - Required 4L on admission, up to 10L overnight, and now initiating Vapotherm d/ t continued SOB and increased work of breath - Change prednisone to Solu-Medrol (2) Pneumonia Code(s): J18.9 - PNEUMONIA, UNSPECIFIED ORGANISM Comment: - History of H. influenzae pneumonia which is likely again d/t COPD and colonization - Left-sided pneumonia on CXR on admission; CXR overnight shows interval worsening - Increased leukocytosis today - Previously having soft pressures, but now normotensive - Urine antigens negative for S. pneumo and Legionella - Sputum culture pending - There is low threshold to increase coverage d/t worsening respiratory status and WBC, but will continue current abx for now - Continue azithromycin, ceftriaxone (3) COPD exacerbation Code(s): J44.1 - CHRONIC OBSTRUCTIVE PULMONARY DISEASE W (ACUTE) EXACERBATION Comment: - Secondary to pneumonia - Respiratory status now worsening as above - Flutter valve - Continue nebs, Trelegy Ellipta, Flonase; change back to Solu-Medrol (4) Sepsis Comment: - Met criteria on admission and still meeting criteria with leukocytosis, tachypnea, tachycardia - Secondary to pneumonia - BPs now improved - Plan as above (5) RBBB Code(s): I45.10 - UNSPECIFIED RIGHT BUNDLE-BRANCH BLOCK Comment: - New RBBB noted on EKG at admission - Echo without changes form 2012; EF 50-55%, no wall motion abnormalities, no diastolic dysfunction, no significant valve abnormalities - Suspect secondary to right heart strain in setting of PNA and COPD exacerbation (6) LAMONT (obstructive sleep apnea) Code(s): G47.33 - OBSTRUCTIVE SLEEP APNEA (ADULT) (PEDIATRIC) Comment: - BiPAP at HS (7) Nonsustained ventricular tachycardia Code(s): I47.2 - VENTRICULAR TACHYCARDIA Comment: - History of nonsustained VT - Resume metoprolol as pressures have normalized (8) Smoking 1/2 pack a day or less Code(s): F17.210 - NICOTINE DEPENDENCE, CIGARETTES, UNCOMPLICATED Comment: - Encouarge smoking cessation - Continue nicotine replacement (9) DVT prophylaxis Comment: - Lovenox (10) DNR (do not resuscitate) Comment: - MOLST form completed indicating DNR/DNI Status and Disposition: Inpatient ICU for increased respiratory support. Anticipate d/c home when medically stable. Attending: Arlene Torres
[2019-07-01] MEDS: Morphine INJ* 2 MG/ML 1 ML SYRINGE (TWO MG - NEW SYRINGE VERSION) IV PRN (10:03)
[2019-07-01] MEDS: methylPREDNISolone SOD 40 MG* 1 ML VIAL IV SCH ×2 (10:06→21:46)
[2019-07-01] MEDS: Enoxaparin(*) 40 MG/0.4 ML SYR SUBCUT SCH (10:06)
[2019-07-01] MEDS: guaiFENesin ER TAB 600 MG PO SCH ×2 (10:59→20:23)
[2019-07-01] MEDS: Fluticasone NASAL SPRAY 50MCG* 16 gm SPRAY BTL BOTH NARES SCH (10:59)
--- NOTE | 2019-07-01 11:32 | CONSULT ---
Consult Consult: Consultation Note -- Critical Care Requesting Physician: Dr Coreas Reason for consult: respiratory distress, pneumonia Limitations in history/physical: none Date of consult: 07/01/2019 HPI: 63y M w/pmhx of COPD, on 3L home O2, active smoker, CHF, NSVT; admitted 06/28 for shortness of breath complaints, noted have wheezing, cough+, fevers subjective at home. he was febrile 101.2, tachycardic, sats in low 90s, had elevated WBC 26. He was diagnosed with a left upper/lower lobe pneumonia. He was started on CTX/azithro for CAP coverage. He was noted to have intermittent hypotension each day and given Ns boluses. He was continued on steroids for possible COPD exaccerbation given initial wheezing. Today 07/01 he was more short of breath, coughing+, increased work of breathing. He was upgraded to ICU for HFNC and possible NIV. He is currently in ICU on NIV support, remains tachycardic, tachypneic. Tmax 100.1. HR upto 150s sinus. BP was high but now in 90s. ABG last night demonstrated that he can ventilate but PO2 72. he states he does feel short of breath but better since mask was placed (NIV). He is awake, alert. no chest pain/n/v. CXR 07/01 1am demonstrated increased left sided upper/lower infiltrates and similar Right basal infiltrate or even improved slightly ED/floor Course: as above ROS: negative except for pertinent positives mentioned above PMHx: COPD, on 3L home O2, active smoker, CHF, NSVT PSHx: tonsil surgery Family History: non-contributory Social History: Alcohol-none, Smoking-4-5 cig/daily x45yrs, Drug use-none Allergies: Allergies Allergy/AdvReac Type Severity Reaction Status Date / Time No Known Allergies Allergy Verified 06/28/19 19:20 Home Medications: Albuterol 2.5MG/3ML (0.083%)* [Ventolin 2.5 MG/3 ML NEB.GEREMIAS*] 2.5 mg INH Q6H PRN 05/29/17 [History Confirmed 06/28/19] Albuterol HFA INHALER* [Ventolin HFA Inhaler*] 2 puff INH Q4H PRN 05/29/17 [ History Confirmed 06/28/19] Ipratropium 0.5MG/2.5ML NEB* [Atrovent 0.5 MG NEB.GEREMIAS*] 0.5 mg INH TID 05/29/17 [History Confirmed 06/28/19] guaiFENesin LIQ* [Robitussin*] 10 ml PO QID udc 06/05/17 [Rx Confirmed 06/28/19 ] Levalbuterol Tartrate [Levalbuterol Tartrate Hfa] 1 puff INH BID PRN 06/28/19 [ History Confirmed 06/28/19] Metoprolol Tartrate TAB* [Lopressor TAB*] 100 mg PO Q12HR 06/28/19 [History Confirmed 06/28/19] Fluticasone/Umeclidin/Vilanter [Trelegy Ellipta 100-62.5-25] 1 puff INH DAILY [History Confirmed 06/29/19] Tele: Sinus tachy Vitals: Vital Signs Temp 99.4 F 07/01/19 08:00 Pulse 132 07/01/19 07:09 Resp 40 07/01/19 10:03 BP 113/61 07/01/19 07:00 Pulse Ox 92 07/01/19 07:09 Intake & Output 06/30/19 07/01/19 07/01/19 18:59 06:59 18:59 Intake Total 3360 755 0 Output Total 720 600 Balance 2640 155 0 Intake: IV Fluids 1100 30 NS (0.9%) 1100 30 IVPB 325 ABX - AZITHROMYCIN 275 ABX - CEFTRIAXONE 50 Oral 2260 400 0 Output: Urine 720 600 Other: Date of Last Bowel 06/30/19 Movement # Bowel Movements 1 # Voids 1 O2/Vent: NIV 10/05 100% ; rr 30-40, TV ~400 Infusions: heplock Current Medications: Acetaminophen (Tylenol Tab*) 650 mg PO Q4H PRN PRN Reason: MILD PAIN or TEMP > 100.4 Last Admin: 06/29/19 21:15 Dose: 650 mg Acetylcysteine (Mucomyst Inhalation Geremias*) 400 mg INH Q4H PRN PRN Reason: CONGESTION Albuterol/Ipratropium (Duoneb (Albuterol 2.5 Mg/Ipratropium 0.5 Mg)) 1 neb INH [id number] AWAKE [facility] [place] Last Admin: 07/01/19 07:08 Dose: 1 neb Enoxaparin Sodium (Lovenox(*)) 40 mg SUBCUT Q24HR [facility] [place] Last Admin: 07/01/19 10:06 Dose: 40 mg Fluticasone Propionate (Flonase Nasal [place] 50mcg*) 2 spray BOTH NARES DAILY [facility] [place] Last Admin: 07/01/19 10:59 Dose: 2 spray Guaifenesin (Mucinex*) 1,200 mg PO BID [facility] [place] Last Admin: 07/01/19 10:59 Dose: 1,200 mg Azithromycin (Zithromax 500 Mg/250 Ml) 500 mg in 250 mls @ 250 mls/hr IVPB Q24H [facility] [place] Last Admin: 06/30/19 20:17 Dose: 250 mls/hr Ceftriaxone Sodium 1 gm/ (Sodium Chloride) 50 mls @ 100 mls/hr IVPB Q24H [facility] [place] Last Admin: 06/30/19 19:37 Dose: 100 mls/hr Levalbuterol HCl (Xopenex 1.25 Mg/0.5 Ml Neb.Geremias*) 1.25 mg INH Q4H PRN PRN Reason: SOB/WHEEZING Last Admin: 07/01/19 03:19 Dose: 1.25 mg Melatonin (Melatonin) 3 mg PO BEDTIME [facility] [place] Last Admin: 06/30/19 21:45 Dose: 3 mg Methylprednisolone Sodium Succinate (Solu-Medrol 40 Mg) 40 mg IV Q12H [facility] [place] Last Admin: 07/01/19 10:06 Dose: 40 mg Metoprolol Tartrate (Lopressor Tab*) 100 mg PO Q12HR [facility] [place] Last Admin: 07/01/19 10:59 Dose: Not Given Morphine Sulfate (Morphine Inj (Syringe))*) 2 mg IV Q4H PRN PRN Reason: Severe pain or air hunger Last Admin: 07/01/19 10:03 Dose: 2 mg Nicotine (Nicotine Patch 14 Mg/24 Hr*) 1 patch TRANSDERM BEDTIME [facility] [place] Last Admin: 06/30/19 20:18 Dose: 1 patch Nicotine Polacrilex (Nicotine Lozenge Mini) 2 mg MT Q2H PRN PRN Reason: CRAVING Pharmacy Profile Note (Nicotine Patch Removal Note*) 1 note PATCH OFF 2100 [facility] [place] Last Admin: 06/30/19 19:40 Dose: Not Given Tramadol HCl (Ultram*) 50 mg PO Q6H PRN PRN Reason: PAIN - MODERATE Last Admin: 07/01/19 11:06 Dose: 50 mg Physical Exam: Constitutional: awake, alert, tachypneic+, no diaphoresis Head: normocephalic, atraumatic Eyes: no pallor, no icterus ENT: moist mucous membranes Neck: soft, supple, no jvd, no stridor CVS: tachy+, regular, no murmur Chest/Resp: distant breath sound bilaterally; left rhales++, no wheeze/rhonchi, tachypnea+, some intermittent acc muscle use+ Abdomen/GI: soft, nontender, nondistended, BS+ Ext/Msk: warm, pulses+, no edema Skin: intact, warm Neuro: awake, alert, orientedx3, moving all extremities, no gross focal deficit Psych: normal affect Labs: Laboratory Results - last 24 hr 07/01/19 07/01/19 01:11 02:30 Patient Temperature Not Reportable ABG pH 7.41 ABG pH (Temp Correct) Not Reportable ABG pCO2 42 ABG pCO2 (Temp Corrct Not Reportable ABG pO2 72 L ABG pO2 (Temp Correct Not Reportable ABG HCO3 26.2 ABG O2 Saturation 96.9 ABG Base Excess 1.7 Respiration Rate Not Reportable O2 Delivery Device salter Ventilator Type Not Reportable Vent Mode Not Reportable FiO2 Not Reportable Inspiratory Time Not Reportable PEEP Not Reportable Pressure Support Not Reportable Pressure Control Not Reportable EPAP Not Reportable IPAP Not Reportable BiPAP Not Reportable POC Glucose (mg/dL) 263 H Microbiology 07/01/19 03:00 Nasal Screen MRSA (PCR) - Final Nasal Mrsa Not Detected 06/28/19 20:59 Aerobic Blood Culture - Preliminary Blood Venous No Growth Day 2 Anaerobic Blood Culture - Preliminary No Growth Day 2 06/28/19 19:36 Aerobic Blood Culture - Preliminary Blood Venous No Growth Day 2 Anaerobic Blood Culture - Preliminary No Growth Day 2 Imaging: CXR 07/01 - Diffuse upper/lower infiltrates increased from prior 06/28 images Assessment: 63y M w/pmhx of COPD, on 3L home O2, active smoker, CHF, NSVT; admitted 06/28 for shortness of breath complaints, noted have wheezing, cough+, fevers subjective at home. he was febrile 101.2, tachycardic, sats in low 90s, had elevated WBC 26. He was diagnosed with a left upper/lower lobe pneumonia. He was started on CTX/azithro for CAP coverage. He was noted to have intermittent hypotension each day and given Ns boluses. He was continued on steroids for possible COPD exaccerbation given initial wheezing. Today 07/01 he was more short of breath, coughing+, increased work of breathing. He was upgraded to ICU for HFNC and possible NIV. -Severe Sepsis -Left sided pneumonia of upper/lower lobe -Acute on chronic hypoxic respiratory failure; on NIV -COPD with acute exaccerbation -Tachycardia -h/o NSVT Plan: Neuro- -awake, alert -back pain+; IV tylenol x1; cont tramadol po; morphine prn -Delirium prec; avoid BDZ CVS- -sinus tachy; BP 100s now -cont metoprolol, will keep 50mg po q12h given lower BPs, if BP increases will increase dose -IV abx for pneumonia -IVF PRN -check BNP -TTE 06/29 - normal LV fxn, normal RV fxn, no overt valvular disease -Maintain MAP>65 Resp- -acute on chr hypoxic resp failure; now on NIV -CXR 07/01 with prog infiltrates on left -Sputum with gram neg and positive growth -cont IV abx -no wheezign noted; would cont solumedrol 40mg iv bid -nonproductive; d/c mucomyst -morphine PRN for pain and resp distress -at lenght discussion with patient and his at bedside about intubation trial if needed and both have discussed this in past and decided on no intubation, DNR status. They understand NIV is support and morphine for distress if needed. He has been intubated years back and also suffers from COPD at home and does not wish to struggle more if it worsens. DNR/DNI in chart. -Wean Fio2 to keep sat>92% -Bronchodilators PRN, Aspiration prec ID- tmax 100.6, wbc 26-14-23. more tachycardic. WBC elevation may also be from steroids but he also has clinically declines/worsened. -CXR 07/01 with increasing left infiltrates -sputum with gram neg and pos growth -blood cx neg -legionella neg -CTX (day#4) and azithro (day#4); pending identification -check influenza swab and strept urine GI- -regular diet; keep NPO on NIV though -GI prophylaxis Renal- -making urine; K okay, no acidosis -not on IVF currently -strict I/O, replete to keep K>4, Mg>2 -sanon as indicated Heme- hg stable -plt stable -DVT proph with SCD/lovenox Endo- Maintain BG<200, insulin protocol as needed. Musculsk- pressure ulcer prophylaxis. Bedrest. Wounds- none Nutrition- NPO on niv DVT prophylaxis: enoxaparin, scd GI prophylaxis: no Central Line: no Arterial Line: no Sanon Cathetor: no Disposition: Patient requires Critical Care/ICU for respiratory failure req NIV and pneumonia Patient Clinical Status: guarded, critical Code Status: DNR/DNI Total Critical Care time is 50 minutes, excluding procedures/teaching Ty Langley MD [employer] (Electronically Signed)
[2019-07-01] MEDS ORDERED: Acetaminophen IV 1GM/100ML * 1,000 MG/100 ML VIAL IVPB ONE (11:44)
[2019-07-01] MEDS ORDERED: cefTRIAXone(*) 1 GM in NS 0.9% 50 ML* 50 ML IVPB SCH (12:00)
[2019-07-01] MEDS: Metoprolol Tartrate TAB* 100 MG TAB PO SCH ×2 (13:01→22:00)
[2019-07-01] MEDS: Cefepime 2 GM in Dextrose(*) 2 GM/50 ML BAG IV SCH (13:38)
[2019-07-01 14:19] LABS: Influenza A Molecular NEGATIVE (Negative); Influenza B Molecular NEGATIVE (Negative)
[2019-07-01] MEDS ORDERED: NS 0.9% 1000 ML** 1,000 ML IV SCH ×2 (15:30→18:19)
[2019-07-01] MEDS ORDERED: NS 0.9% 1000 ML** 1,000 ML IV ONE (18:19)
[2019-07-01] MEDS: Azithromycin 500 mg/250 ml NS 500 MG/250 ML BAG IVPB SCH (20:22)
[2019-07-01] MEDS: Melatonin 3 MG TAB PO SCH (20:23)
[2019-07-01] MEDS: Nicotine PATCH 14 MG/24 HR* PATCH TRANSDERM SCH (20:25)
[2019-07-01] MEDS: Nicotine Patch Removal NOTE PATCH OFF SCH (20:26)
[2019-07-02] MEDS: Cefepime 2 GM in Dextrose(*) 2 GM/50 ML BAG IV SCH ×2 (00:46→13:25)
[2019-07-02] MEDS: Morphine INJ* 2 MG/ML 1 ML SYRINGE (TWO MG - NEW SYRINGE VERSION) IV PRN ×3 (01:02→23:39)
[2019-07-02] MEDS: Albuterol/Ipratropium NEB.SOL* Albuterol 2.5 MG/Ipratropium 0.5 MG 3 ML INH SCH ×4 (04:23→19:06)
[2019-07-02 04:38] LABS: Hematocrit 37 % (42-52); Mean Corpuscular HGB Conc 32 g/dL (31-36); Mean Corpuscular Hemoglobin 30 pg (27-31); Mean Corpuscular Volume 94 fL (80-94); Mean Platelet Volume 8.3 fL (7.4-10.4); Platelet Count 299 10^3/uL (150-450); Red Blood Count 3.98 10^6 /uL (4.18-5.48); Red Cell Distribution Width 15 % (10-15); White Blood Count 20.7 10^3/uL (3.5-10.8)
[2019-07-02 04:54] LABS: BUN/Creatinine Ratio 21.8 (8-20); Calcium 7.8 mg/dL (8.6-10.3); EGFR Non-African American 100.9 (>60); Potassium 4.6 mmol/L (3.5-5.0)
[2019-07-02 05:17] LABS: ABS Basophils 0.1 10^3/ul (0-0.2); ABS Lymphocytes 0.6 10^3/ul (1.0-4.8); ABS Neutrophils 18.9 10^3/ul (1.5-7.7); Lymphocyte % 2.8 %
[2019-07-02] MEDS: guaiFENesin ER TAB 600 MG PO SCH ×2 (08:58→21:10)
[2019-07-02] MEDS: Metoprolol Tartrate TAB* 100 MG TAB PO SCH ×2 (08:59→21:11)
[2019-07-02] MEDS: Enoxaparin(*) 40 MG/0.4 ML SYR SUBCUT SCH (09:00)
[2019-07-02] MEDS: methylPREDNISolone SOD 40 MG* 1 ML VIAL IV SCH ×2 (09:00→21:13)
[2019-07-02] MEDS: Fluticasone NASAL SPRAY 50MCG* 16 gm SPRAY BTL BOTH NARES SCH (09:01)
[2019-07-02] MEDS ORDERED: Cyclobenzaprine TAB* 10 MG PO PRN (10:21)
--- NOTE | 2019-07-02 10:57 | PN ---
Progress Note - Progress Note Date of Service: 07/02/19 Note: Progress Note -- Critical Care 24 hour events -awake, alert; less distress; off NIV now; on NC 5 L -states less distress, less sob; no cp. cough+, sputum+ -afebrile , tmax 100.1 -BP labile 80-90s; given IVF bolus x1 yesterday; on NS infusion -HR stable and controlled better Tele: NSR Vitals: Vital Signs Temp 97.9 F 07/02/19 08:00 Pulse 95 07/02/19 10:30 Resp 27 07/02/19 10:30 BP 91/77 07/02/19 10:01 Pulse Ox 83 07/02/19 10:30 Intake & Output 07/01/19 07/02/19 07/02/19 18:59 06:59 18:59 Intake Total 420 3101 600 Output Total 1050 1250 1125 Balance -630 1851 -525 Weight 105.233 kg 107.133 kg Intake: IV Fluids 30 2025 ABX - CEFEPIME 30 NS (0.9%) 1026 NS Fluid Bolus 1000 IVPB 150 355 ABX - CEFEPIME 50 NS (0.9%) 355 tylenol IV 100 Oral 240 720 600 Output: Urine 1050 1250 1125 Other: Date of Last Bowel 07/01/19 07/01/19 Movement O2/Vent: NC 5 L; sats upper 80-90s Infusions: NS 100 Current Medications: Acetaminophen (Tylenol Tab*) 650 mg PO Q4H PRN PRN Reason: MILD PAIN or TEMP > 100.4 Last Admin: 06/29/19 21:15 Dose: 650 mg Albuterol/Ipratropium (Duoneb (Albuterol 2.5 Mg/Ipratropium 0.5 Mg)) 1 neb INH [id number] AWAKE [facility] Last Admin: 07/02/19 07:54 Dose: 1 neb Cyclobenzaprine HCl (Flexeril Tab*) 10 mg PO TID PRN PRN Reason: SPASMS Enoxaparin Sodium (Lovenox(*)) 40 mg SUBCUT Q24HR [facility] Last Admin: 07/02/19 09:00 Dose: 40 mg Fluticasone Propionate (Flonase Nasal [place] 50mcg*) 2 spray BOTH NARES DAILY [facility] Last Admin: 07/02/19 09:01 Dose: 2 spray Guaifenesin (Mucinex*) 1,200 mg PO BID [facility] Last Admin: 07/02/19 08:58 Dose: 1,200 mg Azithromycin (Zithromax 500 Mg/250 Ml) 500 mg in 250 mls @ 250 mls/hr IVPB Q24H [facility] Last Admin: 07/01/19 20:22 Dose: 250 mls/hr Cefepime HCl (Maxipime 2 Gm In Dextrose Duplex (*)) 2 gm in 50 mls @ 100 mls/ hr IV Q12H [facility] Last Admin: 07/02/19 00:46 Dose: 100 mls/hr Sodium Chloride (Ns 0.9% 1000 Ml) 1,000 mls @ 100 mls/hr IV PER RATE [facility] Levalbuterol HCl (Xopenex 1.25 Mg/0.5 Ml Neb.Silvana*) 1.25 mg INH Q4H PRN PRN Reason: SOB/WHEEZING Last Admin: 07/01/19 03:19 Dose: 1.25 mg Melatonin (Melatonin) 3 mg PO BEDTIME [facility] Last Admin: 07/01/19 20:23 Dose: 3 mg Methylprednisolone Sodium Succinate (Solu-Medrol 40 Mg) 40 mg IV Q12H [facility] Last Admin: 07/02/19 09:00 Dose: 40 mg Metoprolol Tartrate (Lopressor Tab*) 50 mg PO Q12HR [facility] Last Admin: 07/02/19 08:59 Dose: 50 mg Morphine Sulfate (Morphine Inj (Syringe))*) 2 mg IV Q4H PRN PRN Reason: Severe pain or air hunger Last Admin: 07/02/19 01:02 Dose: 2 mg Nicotine (Nicotine Patch 14 Mg/24 Hr*) 1 patch TRANSDERM BEDTIME [facility] Last Admin: 07/01/19 20:25 Dose: 1 patch Nicotine Polacrilex (Nicotine Lozenge Mini) 2 mg MT Q2H PRN PRN Reason: CRAVING Pharmacy Profile Note (Nicotine Patch Removal Note*) 1 note PATCH OFF 2100 [facility] Last Admin: 07/01/19 20:26 Dose: Not Given Tramadol HCl (Ultram*) 50 mg PO Q6H PRN PRN Reason: PAIN - MODERATE Last Admin: 07/01/19 11:06 Dose: 50 mg Physical Exam: Constitutional: awake, alert, not tachypnic, no diaphoresis Head: normocephalic, atraumatic Eyes: no pallor, no icterus ENT: moist mucous membranes Neck: soft, supple, no jvd, no stridor CVS: normal rate, regular, no murmur Chest/Resp: distant breath sound bilaterally; left rhales++, no wheeze/rhonchi, no acc muscle use Abdomen/GI: soft, nontender, nondistended, BS+ Ext/Msk: warm, pulses+, no edema Skin: intact, warm Neuro: awake, alert, orientedx3, moving all extremities, no gross focal deficit Psych: normal affect Labs: Laboratory Results - last 24 hr 07/01/19 07/01/19 07/02/19 12:08 13:10 04:29 WBC 20.7 H RBC 3.98 L Hgb 12.0 L Hct 37 L MCV 94 MCH 30 MCHC 32 RDW 15 Plt Count 299 MPV 8.3 Neut % (Auto) 91.7 Lymph % (Auto) 2.8 Ralls % (Auto) 4.9 Eos % (Auto) 0.0 Baso % (Auto) 0.6 Absolute Neuts (auto) 18.9 H Absolute Lymphs (auto) 0.6 L Absolute Monos (auto) 1.0 H Absolute Eos (auto) 0.0 Absolute Basos (auto) 0.1 Absolute Nucleated RBC 0.0 Nucleated RBC % 0.0 Sodium Potassium Chloride Carbon Dioxide Anion Gap BUN Creatinine Est GFR ( Amer) Est GFR (Non-Af Amer) BUN/Creatinine Ratio Glucose Calcium B-Natriuretic Peptide 221 H Influenza A (Rapid) Negative Influenza B (Rapid) Negative 07/02/19 04:29 WBC RBC Hgb Hct MCV MCH MCHC RDW Plt Count MPV Neut % (Auto) Lymph % (Auto) Ralls % (Auto) Eos % (Auto) Baso % (Auto) Absolute Neuts (auto) Absolute Lymphs (auto) Absolute Monos (auto) Absolute Eos (auto) Absolute Basos (auto) Absolute Nucleated RBC Nucleated RBC % Sodium 135 Potassium 4.6 Chloride 102 Carbon Dioxide 31 Anion Gap 2 BUN 17 Creatinine 0.78 Est GFR ( Amer) 122.0 Est GFR (Non-Af Amer) 100.9 BUN/Creatinine Ratio 21.8 H Glucose 240 H Calcium 7.8 L B-Natriuretic Peptide Influenza A (Rapid) Influenza B (Rapid) Imaging: CXR 07/01 - Diffuse upper/lower infiltrates increased from prior 06/28 images Assessment: 63y M w/pmhx of COPD, on 3L home O2, active smoker, CHF, NSVT; admitted 06/28 for shortness of breath complaints, noted have wheezing, cough+, fevers subjective at home. he was febrile 101.2, tachycardic, sats in low 90s, had elevated WBC 26. He was diagnosed with a left upper/lower lobe pneumonia. He was started on CTX/azithro for CAP coverage. He was noted to have intermittent hypotension each day and given Ns boluses. He was continued on steroids for possible COPD exaccerbation given initial wheezing. Today 07/01 he was more short of breath, coughing+, increased work of breathing. He was upgraded to ICU for HFNC and possible NIV. -Severe Sepsis -Left sided pneumonia of upper/lower lobe with pseudomonas+ -Acute on chronic hypoxic respiratory failure; on NIV -COPD with acute exaccerbation -Tachycardia -h/o NSVT Plan: Neuro- -awake, alert -back pain+; cont tramadol po; morphine prn -Delirium prec; avoid BDZ CVS- -NSR now; cont metoprolol 50mg po q12h for low BPs; increase as BP more stable in 100s -IV abx for pneumonia -dec IVF NS 75cc/hr - BNP 221 -TTE 06/29 - normal LV fxn, normal RV fxn, no overt valvular disease -Maintain MAP>65 Resp- -acute on chr hypoxic resp failure; off NIV; on NC now, less distress -use flutter valve -CXR 07/01 with prog infiltrates on left -Sputum with pseudomonas+ so far -cont IV abx -no wheezign noted; would cont solumedrol 40mg iv bid; taper to daily tomorrow -morphine PRN for pain and resp distress -he is DNR/DNI; no trial of intubation as per him and ; discussion had on -Wean Fio2 to keep sat>92% -Bronchodilators PRN, Aspiration prec ID- afebrile, wbc 26-14-23-20. on steroids now 07/01 -CXR 07/01 with increasing left infiltrates -sputum with pseudomonas 1+ so far -blood cx neg -legionella neg, urine strept neg -IV Cefepime 2gm q12h(day#2) and azithro (day#5); d/c azithro today GI- -regular diet -GI prophylaxis Renal- -making urine; K okay, no acidosis -dec NS 75cc/hr -strict I/O, replete to keep K>4, Mg>2 -sanon as indicated Heme- hg stable -plt stable -DVT proph with SCD/lovenox Endo- Maintain BG<200, insulin protocol as needed. Musculsk- pressure ulcer prophylaxis. oob to chair Wounds- none Nutrition- NPO on niv DVT prophylaxis: enoxaparin, scd GI prophylaxis: h2b Central Line: no Arterial Line: no Sanon Cathetor: no Disposition: Patient requires Critical Care/ICU for respiratory failure req NIV and pneumonia; imrpoved today; likely 24 more hours ICU unless progressive improvement and possible transfer later today Patient Clinical Status: guarded, critical Code Status: DNR/DNI Total Critical Care time is 35 minutes, excluding procedures/teaching Ty Langley MD [facility] (Electronically Signed)
[2019-07-02] MEDS: NS 0.9% 1000 ML** 1,000 ML IV SCH (13:00)
[2019-07-02] MEDS: Famotidine TAB* 20 MG PO SCH ×2 (13:25→21:10)
[2019-07-02] MEDS: FLUTICASONE/UMECLIDIN/VILANTER 1 PUFF MDI INH SCH (13:49)
--- NOTE | 2019-07-02 14:22 | PN ---
Subjective Date of Service: 07/02/19 Interval History: Mr. Tavares is feeling much better this morning. SOB has improved significantly , but still very SOB when moving around in bed and with talking. He thinks being back on BiPAP was helpful. He c/o muscle spams in lateral left chest wall. Denies N/V, dizziness. No concerns from nursing and no events overnight. Family History: Unchanged from Admission Social History: Unchanged from Admission Past Medical History: Unchanged from Admission Objective Active Medications: Acetaminophen (Tylenol Tab*) 650 mg PO Q4H PRN MILD PAIN or TEMP > 100.4 Albuterol/Ipratropium (Duoneb (Albuterol 2.5 Mg/Ipratropium 0.5 Mg)) 1 neb INH [id number] AWAKE [facility] Cyclobenzaprine HCl (Flexeril Tab*) 10 mg PO TID PRN SPASMS Enoxaparin Sodium (Lovenox(*)) 40 mg SUBCUT Q24HR [facility] Famotidine (Pepcid Tab*) 20 mg PO BID [facility] Fluticasone Propionate (Flonase Nasal [place] 50mcg*) 2 spray BOTH NARES DAILY [facility] Guaifenesin (Mucinex*) 1,200 mg PO BID [facility] Azithromycin (Zithromax 500 Mg/250 Ml) 500 mg in 250 mls @ 250 mls/hr IVPB Q24H [facility] Cefepime HCl (Maxipime 2 Gm In Dextrose Duplex (*)) 2 gm in 50 mls @ 100 mls/ hr IV Q12H [facility] Sodium Chloride (Ns 0.9% 1000 Ml) 1,000 mls @ 75 mls/hr IV PER RATE [facility] Levalbuterol HCl (Xopenex 1.25 Mg/0.5 Ml Neb.Silvana*) 1.25 mg INH Q4H PRN SOB/ WHEEZING Melatonin (Melatonin) 3 mg PO BEDTIME [facility] Methylprednisolone Sodium Succinate (Solu-Medrol 40 Mg) 40 mg IV Q12H [facility] Metoprolol Tartrate (Lopressor Tab*) 50 mg PO Q12HR [facility] Morphine Sulfate (Morphine Inj (Syringe))*) 2 mg IV Q4H PRN Severe pain or air hunger Nicotine (Nicotine Patch 14 Mg/24 Hr*) 1 patch TRANSDERM BEDTIME [facility] Nicotine Polacrilex (Nicotine Lozenge Mini) 2 mg MT Q2H PRN [facility] Tramadol HCl (Ultram*) 50 mg PO Q6H PRN PAIN - MODERATE Vital Signs - 8 hr 07/02/19 07/02/19 07/02/19 06:31 07:00 07:30 Temperature Pulse Rate 84 93 93 Respiratory 28 28 23 Rate Blood Pressure 88/49 (mmHg) O2 Sat by Pulse 96 96 94 Oximetry 07/02/19 07/02/19 07/02/19 07:56 08:00 08:30 Temperature 97.9 F Pulse Rate 91 90 94 Respiratory 23 22 17 Rate Blood Pressure 93/53 (mmHg) O2 Sat by Pulse 93 94 96 Oximetry 07/02/19 07/02/19 07/02/19 09:00 09:02 09:30 Temperature Pulse Rate 108 115 91 Respiratory 38 18 34 Rate Blood Pressure 86/62 (mmHg) O2 Sat by Pulse 89 89 90 Oximetry 07/02/19 07/02/19 07/02/19 10:00 10:01 10:30 Temperature Pulse Rate 92 90 95 Respiratory 32 24 27 Rate Blood Pressure 91/77 (mmHg) O2 Sat by Pulse 86 86 83 Oximetry 07/02/19 07/02/19 07/02/19 10:50 11:00 11:30 Temperature Pulse Rate 98 95 Respiratory 27 30 36 Rate Blood Pressure 106/59 (mmHg) O2 Sat by Pulse 88 89 Oximetry 07/02/19 07/02/19 07/02/19 12:00 12:01 12:30 Temperature 97.2 F Pulse Rate 93 94 92 Respiratory 27 35 37 Rate Blood Pressure 100/62 (mmHg) O2 Sat by Pulse 90 91 88 Oximetry 07/02/19 07/02/19 07/02/19 13:00 13:01 13:52 Temperature Pulse Rate 101 105 Respiratory 18 32 18 Rate Blood Pressure 112/57 (mmHg) O2 Sat by Pulse 81 91 Oximetry Oxygen Devices in Use Now: High Flow Nasal Cannula - 5L Appearance: Middle-aged male sitting in bed, dyspneic, but in NAD Ears/Nose/Mouth/Throat: Mucous Membranes Moist Neck: NL Appearance and Movements; NL JVP, Trachea Midline Respiratory: Symmetrical Chest Expansion and Respiratory Effort, - - Diminished throughout Cardiovascular: NL Sounds; No Murmurs; No JVD Abdominal: NL Sounds; No Tenderness; No Distention Neurological: Alert and Oriented x 3 Lines/Tubes/Other Access: Clean, Dry and Intact Peripheral IV Result Diagrams: 07/02/19 04:29 07/02/19 04:29 Assess/Plan/Problems-Billing Assessment: Mr. Tavares is a 63 yo M with PMH of COPD with chronic respiratory failure on 3L, LAMONT on BiPAP, current smoker, and nonsustained VT; who presented with fever found to have sepsis 2/2 pneumonia. - Patient Problems (1) Acute and chronic respiratory failure with hypoxia Code(s): J96.21 - ACUTE AND CHRONIC RESPIRATORY FAILURE WITH HYPOXIA Comment: - Baseline 3L during the day, BiPAP at night - Secondary to pneumonia and COPD exacerbation - Required 4L on admission, required Vapotherm and BiPAP overnight, now down to 5L - Continue Solu-Medrol (2) Pneumonia Code(s): J18.9 - PNEUMONIA, UNSPECIFIED ORGANISM Comment: - History of H. influenzae pneumonia which is likely again d/t COPD and colonization - Left-sided pneumonia on CXR on admission; CXR overnight shows interval worsening - Increased leukocytosis today - Previously having soft pressures, but now normotensive - Urine antigens negative for S. pneumo and Legionella - Sputum culture growing Pseudomonas - Continue cefepime (3) COPD exacerbation Code(s): J44.1 - CHRONIC OBSTRUCTIVE PULMONARY DISEASE W (ACUTE) EXACERBATION Comment: - Secondary to pneumonia - Respiratory status now worsening as above - Flutter valve - Continue nebs, Trelegy Ellipta, Flonase, Solu-Medrol (4) Sepsis Comment: - Met criteria on admission and still meeting criteria with leukocytosis, tachypnea, tachycardia - Secondary to pneumonia - BPs still soft on occasion; IVF ordered by [employer] - Plan as above (5) RBBB Code(s): I45.10 - UNSPECIFIED RIGHT BUNDLE-BRANCH BLOCK Comment: - New RBBB noted on EKG at admission - Echo without changes form 2012; EF 50-55%, no wall motion abnormalities, no diastolic dysfunction, no significant valve abnormalities - Suspect secondary to right heart strain in setting of PNA and COPD exacerbation (6) LAMONT (obstructive sleep apnea) Code(s): G47.33 - OBSTRUCTIVE SLEEP APNEA (ADULT) (PEDIATRIC) Comment: - BiPAP at HS (7) Nonsustained ventricular tachycardia Code(s): I47.2 - VENTRICULAR TACHYCARDIA Comment: - History of nonsustained VT - Continue metoprolol (8) Smoking 1/2 pack a day or less Code(s): F17.210 - NICOTINE DEPENDENCE, CIGARETTES, UNCOMPLICATED Comment: - Encouarge smoking cessation - Continue nicotine replacement (9) DVT prophylaxis Comment: - Lovenox (10) DNR (do not resuscitate) Comment: Status and Disposition: Inpatient ICU for increased respiratory support, hopefully out of ICU tomorrow. Anticipate d/c home when medically stable. Attending: Arlene Torres
[2019-07-02] MEDS: Azithromycin 500 mg/250 ml NS 500 MG/250 ML BAG IVPB SCH (19:40)
[2019-07-02] MEDS: Melatonin 3 MG TAB PO SCH (21:10)
[2019-07-02] MEDS: Nicotine PATCH 14 MG/24 HR* PATCH TRANSDERM SCH (21:12)
[2019-07-02] MEDS: Nicotine Patch Removal NOTE PATCH OFF SCH (21:13)
[2019-07-03] MEDS: Cefepime 2 GM in Dextrose(*) 2 GM/50 ML BAG IV SCH ×2 (00:07→13:51)
[2019-07-03] MEDS: NS 0.9% 1000 ML** 1,000 ML IV SCH (00:08)
[2019-07-03] MEDS: Albuterol/Ipratropium NEB.SOL* Albuterol 2.5 MG/Ipratropium 0.5 MG 3 ML INH SCH ×3 (00:46→13:14)
[2019-07-03 06:00] LABS: Hematocrit 36 % (42-52); Hemoglobin 11.9 g/dL (14.0-18.0); Mean Corpuscular HGB Conc 33 g/dL (31-36); Mean Corpuscular Hemoglobin 31 pg (27-31); Mean Corpuscular Volume 95 fL (80-94); Mean Platelet Volume 8.1 fL (7.4-10.4); Platelet Count 324 10^3/uL (150-450); Red Blood Count 3.84 10^6 /uL (4.18-5.48); Red Cell Distribution Width 16 % (10-15); White Blood Count 19.2 10^3/uL (3.5-10.8)
[2019-07-03 06:16] LABS: BUN/Creatinine Ratio 32.3 (8-20); Calcium 7.7 mg/dL (8.6-10.3); EGFR African American 150.6 (>60); EGFR Non-African American 124.5 (>60); Magnesium 2.5 mg/dL (1.9-2.7); Phosphorus 2.8 mg/dL (2.5-5.0)
[2019-07-03 06:28] LABS: Potassium 5.1 mmol/L (3.5-5.0)
[2019-07-03] MEDS: FLUTICASONE/UMECLIDIN/VILANTER 1 PUFF MDI INH SCH (07:19)
[2019-07-03] MEDS: Metoprolol Tartrate TAB* 100 MG TAB PO SCH ×2 (09:07→19:42)
[2019-07-03] MEDS: Famotidine TAB* 20 MG PO SCH ×2 (09:07→19:45)
[2019-07-03] MEDS: Fluticasone NASAL SPRAY 50MCG* 16 gm SPRAY BTL BOTH NARES SCH (09:07)
[2019-07-03] MEDS: guaiFENesin ER TAB 600 MG PO SCH ×2 (09:07→19:44)
[2019-07-03] MEDS: Enoxaparin(*) 40 MG/0.4 ML SYR SUBCUT SCH (09:07)
[2019-07-03] MEDS: methylPREDNISolone SOD 40 MG* 1 ML VIAL IV SCH ×2 (09:27→21:08)
[2019-07-03] MEDS ORDERED: Furosemide IV* 10 MG/ML 2 ML VIAL (20 MG) IV ONE (11:04)
--- NOTE | 2019-07-03 11:10 | PN ---
Progress Note - Progress Note Date of Service: 07/03/19 Note: Progress Note -- Critical Care 24 hour events -awake, alert; on NIV overngiht; on hiflow 100% 40lpm now -distress+, tachypnea+ -cough+, sputum+ -tmax 100.1 yesterday -BP stable, HR stable -no other complaints; eating well, no diarrhea/abd pain/n/v Tele: NSR Vitals: Vital Signs Temp 98.2 F 07/03/19 03:45 Pulse 75 07/03/19 07:19 Resp 28 07/03/19 07:19 BP 111/67 07/03/19 07:00 Pulse Ox 93 07/03/19 07:19 Intake & Output 07/02/19 07/03/19 07/03/19 18:59 06:59 18:59 Intake Total 3128 2290 Output Total 2400 950 Balance 728 1340 Weight 110.4 kg Intake: IV Fluids 808 1000 NS (0.9%) 808 1000 IVPB 330 NS (0.9%) 330 Oral 2320 960 Output: Urine 2400 950 Other: Date of Last Bowel 07/01/19 Movement O2/Vent: HFNC 100% 40lpm Infusions: heplock Current Medications: Acetaminophen (Tylenol Tab*) 650 mg PO Q4H PRN PRN Reason: MILD PAIN or TEMP > 100.4 Last Admin: 06/29/19 21:15 Dose: 650 mg Albuterol/Ipratropium (Duoneb (Albuterol 2.5 Mg/Ipratropium 0.5 Mg)) 1 neb INH [id number] AWAKE [facility] Last Admin: 07/03/19 07:19 Dose: 1 neb Cyclobenzaprine HCl (Flexeril Tab*) 10 mg PO TID PRN PRN Reason: SPASMS Enoxaparin Sodium (Lovenox(*)) 40 mg SUBCUT Q24HR [facility] Last Admin: 07/03/19 09:07 Dose: 40 mg Famotidine (Pepcid Tab*) 20 mg PO BID [facility] Last Admin: 07/03/19 09:07 Dose: 20 mg Fluticasone Propionate (Flonase Nasal [place] 50mcg*) 2 spray BOTH NARES DAILY [facility] Last Admin: 07/03/19 09:07 Dose: 2 spray Guaifenesin (Mucinex*) 1,200 mg PO BID [facility] Last Admin: 07/03/19 09:07 Dose: 1,200 mg Cefepime HCl (Maxipime 2 Gm In Dextrose Duplex (*)) 2 gm in 50 mls @ 100 mls/ hr IV Q12H [facility] Last Admin: 07/03/19 00:07 Dose: 100 mls/hr Levalbuterol HCl (Xopenex 1.25 Mg/0.5 Ml Neb.Silvana*) 1.25 mg INH Q4H PRN PRN Reason: SOB/WHEEZING Last Admin: 07/01/19 03:19 Dose: 1.25 mg Melatonin (Melatonin) 3 mg PO BEDTIME [facility] Last Admin: 07/02/19 21:10 Dose: 3 mg Methylprednisolone Sodium Succinate (Solu-Medrol 40 Mg) 40 mg IV Q12H [facility] Last Admin: 07/03/19 09:27 Dose: 40 mg Metoprolol Tartrate (Lopressor Tab*) 50 mg PO Q12HR [facility] Last Admin: 07/03/19 09:07 Dose: 50 mg Morphine Sulfate (Morphine Inj (Syringe))*) 2 mg IV Q4H PRN PRN Reason: Severe pain or air hunger Last Admin: 07/02/19 23:39 Dose: 2 mg Nicotine (Nicotine Patch 14 Mg/24 Hr*) 1 patch TRANSDERM BEDTIME [facility] Last Admin: 07/02/19 21:12 Dose: 1 patch Nicotine Polacrilex (Nicotine Lozenge Mini) 2 mg MT Q2H PRN PRN Reason: CRAVING Pharmacy Profile Note (Nicotine Patch Removal Note*) 1 note PATCH OFF 2100 [facility] Last Admin: 07/02/19 21:13 Dose: Not Given Tramadol HCl (Ultram*) 50 mg PO Q6H PRN PRN Reason: PAIN - MODERATE Last Admin: 07/01/19 11:06 Dose: 50 mg Physical Exam: Constitutional: awake, alert, +tachypnic, no diaphoresis Head: normocephalic, atraumatic Eyes: no pallor, no icterus ENT: moist mucous membranes Neck: soft, supple, no jvd, no stridor CVS: normal rate, regular, no murmur Chest/Resp: distant breath sound bilaterally; left rhales++, no wheeze/rhonchi, + acc muscle use Abdomen/GI: soft, nontender, nondistended, BS+ Ext/Msk: warm, pulses+, no edema Skin: intact, warm Neuro: awake, alert, orientedx3, moving all extremities, no gross focal deficit Psych: normal affect Labs: Laboratory Results - last 24 hr 07/03/19 07/03/19 05:30 05:30 WBC 19.2 H RBC 3.84 L Hgb 11.9 L Hct 36 L MCV 95 H MCH 31 MCHC 33 RDW 16 H Plt Count 324 MPV 8.1 Sodium 138 Potassium 5.1 H Chloride 103 Carbon Dioxide 32 Anion Gap 3 BUN 21 Creatinine 0.65 L Est GFR ( Amer) 150.6 Est GFR (Non-Af Amer) 124.5 BUN/Creatinine Ratio 32.3 H Glucose 205 H Calcium 7.7 L Phosphorus 2.8 Magnesium 2.5 Imaging: CXR 07/01 - Diffuse upper/lower infiltrates increased from prior 06/28 images CXR 07/03 - diffuse left sided infiltrates+, increased from yesterday Assessment: 63y M w/pmhx of COPD, on 3L home O2, active smoker, CHF, NSVT; admitted 06/28 for shortness of breath complaints, noted have wheezing, cough+, fevers subjective at home. he was febrile 101.2, tachycardic, sats in low 90s, had elevated WBC 26. He was diagnosed with a left upper/lower lobe pneumonia. He was started on CTX/azithro for CAP coverage. He was noted to have intermittent hypotension each day and given Ns boluses. He was continued on steroids for possible COPD exaccerbation given initial wheezing. Today 07/01 he was more short of breath, coughing+, increased work of breathing. He was upgraded to ICU for HFNC and possible NIV. -Severe Sepsis -Left sided pneumonia of upper/lower lobe with pseudomonas+ -Acute on chronic hypoxic respiratory failure; on NIV -COPD with acute exaccerbation -Tachycardia -h/o NSVT Plan: Neuro- -awake, alert -back pain+; cont tramadol po; morphine prn -Delirium prec; avoid BDZ CVS- -NSR ; cont metoprolol 50mg po q12h ; increase to 100mg q12 as tolerated -IV abx for pneumonia -d/c ivf -TTE 06/29 - normal LV fxn, normal RV fxn, no overt valvular disease -Maintain MAP>65 Resp- -acute on chr hypoxic resp failure; NIV at night; on HFNC now; still in distress -use flutter valve -CXR 07/03 with prog infiltrates on left -Sputum with pseudomonas+ -cont IV abx -mild distant/basal wheezing+; cont solumedrol 40mg iv bid -morphine PRN for pain and resp distress -he is DNR/DNI; no trial of intubation as per him and ; discussion had on -Wean Fio2 to keep sat>92% -Bronchodilators PRN, Aspiration prec ID- afebrile, wbc [id number]. on steroids now 07/01 -CXR 07/03 diffuse left consolidation+ -sputum with pseudomonas 1+ -blood cx neg -legionella neg, urine strept neg -IV Cefepime 2gm q12h(day#3); completed 5 days azithro 07/02 GI- -regular diet when off NIV -GI prophylaxis Renal- -making urine; K 5.1, no acidosis -d/c ivf; lasix 20mg iv x1 -strict I/O, replete to keep K>4, Mg>2 -sanon as indicated Heme- hg stable -plt stable -DVT proph with SCD/lovenox Endo- Maintain BG<200, insulin protocol as needed. Musculsk- pressure ulcer prophylaxis. oob to chair Wounds- none Nutrition- diet when off NIV for daytime DVT prophylaxis: enoxaparin, scd GI prophylaxis: h2b Central Line: no Arterial Line: no Sanon Cathetor: no Disposition: Patient requires Critical Care/ICU for respiratory failure req NIV and pneumonia; still labile and req NIV and HFNC Patient Clinical Status: guarded, critical Code Status: DNR/DNI Total Critical Care time is 35 minutes, excluding procedures/teaching Ty Langley MD [employer] (Electronically Signed)
[2019-07-03] MEDS: Albuterol/Ipratropium NEB.SOL* Albuterol 2.5 MG/Ipratropium 0.5 MG 3 ML INH PRN (14:03)
[2019-07-03] MEDS: Morphine INJ* 2 MG/ML 1 ML SYRINGE (TWO MG - NEW SYRINGE VERSION) IV PRN (19:36)
[2019-07-03] MEDS: Melatonin 3 MG TAB PO SCH (19:44)
[2019-07-03] MEDS: Nicotine PATCH 14 MG/24 HR* PATCH TRANSDERM SCH (21:07)
[2019-07-03] MEDS: Nicotine Patch Removal NOTE PATCH OFF SCH (21:07)
[2019-07-03] MEDS: Acetaminophen TAB* 325 MG PO PRN (21:29)
[2019-07-04] MEDS: Cefepime 2 GM in Dextrose(*) 2 GM/50 ML BAG IV SCH ×2 (00:45→13:18)
[2019-07-04 05:36] LABS: Hematocrit 38 % (42-52); Mean Corpuscular HGB Conc 32 g/dL (31-36); Mean Corpuscular Hemoglobin 30 pg (27-31); Mean Corpuscular Volume 95 fL (80-94); Mean Platelet Volume 8.7 fL (7.4-10.4); Platelet Count 337 10^3/uL (150-450); Red Blood Count 3.97 10^6 /uL (4.18-5.48); Red Cell Distribution Width 16 % (10-15); White Blood Count 14.6 10^3/uL (3.5-10.8)
[2019-07-04 05:52] LABS: BUN/Creatinine Ratio 36.8 (8-20); EGFR Non-African American 118.2 (>60); Magnesium 2.5 mg/dL (1.9-2.7)
[2019-07-04 05:56] LABS: Potassium 5.5 mmol/L (3.5-5.0)
[2019-07-04] MEDS: FLUTICASONE/UMECLIDIN/VILANTER 1 PUFF MDI INH SCH (07:16)
[2019-07-04] MEDS: Famotidine TAB* 20 MG PO SCH ×2 (09:29→20:11)
[2019-07-04] MEDS: guaiFENesin ER TAB 600 MG PO SCH ×2 (09:29→20:11)
[2019-07-04] MEDS: Metoprolol Tartrate TAB* 100 MG TAB PO SCH ×2 (09:29→20:11)
[2019-07-04] MEDS: Fluticasone NASAL SPRAY 50MCG* 16 gm SPRAY BTL BOTH NARES SCH (09:30)
[2019-07-04] MEDS: methylPREDNISolone SOD 40 MG* 1 ML VIAL IV SCH ×2 (09:30→22:16)
[2019-07-04] MEDS: Enoxaparin(*) 40 MG/0.4 ML SYR SUBCUT SCH (09:31)
--- NOTE | 2019-07-04 09:42 | PN ---
Progress Note - Progress Note Date of Service: 07/04/19 - Pulm/cc note Note: Pt seen and examined at bedside. Pt reports no issues. No acute events o/n. Pt still requiring high FiO2 Active Medications Generic Name Dose Route Start Last Admin Trade Name Freq PRN Reason Stop Dose Admin Acetaminophen 650 mg 06/29/19 05:45 07/03/19 21:29 Tylenol Tab* PO 650 mg Q4H PRN Administration MILD PAIN or TEMP > 100.4 Albuterol/Ipratropium 1 neb 07/03/19 13:13 07/03/19 14:03 Duoneb (Albuterol 2.5 Mg/Ipratropium 0.5 Mg) INH 1 neb Q4H PRN Administration SOB/WHEEZING Cyclobenzaprine HCl 10 mg 07/02/19 10:21 Flexeril Tab* PO TID PRN SPASMS Enoxaparin Sodium 40 mg 06/30/19 09:00 07/03/19 09:07 Lovenox(*) SUBCUT 40 mg Q24HR MORGAN Administration Famotidine 20 mg 07/02/19 11:00 07/03/19 19:45 Pepcid Tab* PO 20 mg BID MORGAN Administration Fluticasone Propionate 2 spray 06/29/19 11:00 07/03/19 09:07 Flonase Nasal [place] 50mcg* BOTH NARES 2 spray DAILY MORGAN Administration Guaifenesin 1,200 mg 06/29/19 21:00 07/03/19 19:44 Mucinex* PO 1,200 mg BID MORGAN Administration Cefepime HCl 2 gm in 50 mls @ 100 mls/hr 07/01/19 13:00 07/04/19 00:45 Maxipime 2 Gm In Dextrose Duplex (*) IV 100 mls/hr Q12H MORGAN Administration Levalbuterol HCl 1.25 mg 06/29/19 02:52 07/01/19 03:19 Xopenex 1.25 Mg/0.5 Ml Neb.Silvana* INH 1.25 mg Q4H PRN Administration SOB/WHEEZING Melatonin 3 mg 06/29/19 23:00 07/03/19 19:44 Melatonin PO 3 mg BEDTIME MORGAN Administration Methylprednisolone Sodium Succinate 40 mg 07/01/19 10:00 07/03/19 21:08 Solu-Medrol 40 Mg IV 40 mg Q12H MORGAN Administration Metoprolol Tartrate 50 mg 07/01/19 12:00 07/03/19 19:42 Lopressor Tab* PO 50 mg Q12HR MORGAN Administration Morphine Sulfate 2 mg 07/01/19 09:45 07/03/19 19:36 Morphine Inj (Syringe))* IV 2 mg Q4H PRN Administration Severe pain or air hunger Nicotine 1 patch 06/30/19 21:00 07/03/19 21:07 Nicotine Patch 14 Mg/24 Hr* TRANSDERM 1 patch BEDTIME MORGAN Administration Nicotine Polacrilex 2 mg 06/30/19 12:17 Nicotine Lozenge Mini MT Q2H PRN CRAVING Pharmacy Profile Note 1 note 06/29/19 21:00 07/03/19 21:07 Nicotine Patch Removal Note* PATCH OFF 1 note 2100 MORGAN Administration Tramadol HCl 50 mg 06/29/19 22:27 07/01/19 11:06 Ultram* PO 50 mg Q6H PRN Administration PAIN - MODERATE Vital Signs Temp Pulse Resp BP Pulse Ox 97.4 F 73 31 89/60 96 07/04/19 07:32 07/04/19 08:00 07/04/19 08:00 07/04/19 08:00 07/04/19 08:00 O/E: Pt in NAD HEENT: PERRLA, no JVD, MP-4 Lungs: Distant breath sounds, no audible wheeze CVS: S1, S2+ Abd: Obese, BS+ Ext: Normal ROM Skin: NO rash Neuro: pt is alert, awake, responds appropriately Laboratory Results - last 24 hr 07/04/19 07/04/19 05:21 05:21 WBC 14.6 H RBC 3.97 L Hgb 12.0 L Hct 38 L MCV 95 H MCH 30 MCHC 32 RDW 16 H Plt Count 337 MPV 8.7 Sodium 138 Potassium 5.5 H Chloride 101 Carbon Dioxide 35 H Anion Gap 2 BUN 25 H Creatinine 0.68 Est GFR ( Amer) 143.0 Est GFR (Non-Af Amer) 118.2 BUN/Creatinine Ratio 36.8 H Glucose 245 H Calcium 8.0 L Phosphorus 4.0 Magnesium 2.5 63y M with h/o COPD, on 3L home O2, active smoker, CHF, NSVT admitted 06/28 for shortness of breath, cough+, fevers, dx with left upper/lower lobe pneumonia, possible COPD exacerbation, was transferred to ICU for HFNC and possible NIV. Pt with sepsis secondary to pseudomonal PNA. -Left sided PNA with evidence of air space opacities. Pt with progression of air space opacities on CXR. Still requiring high FiO2. Will titrate FiO2 as tolerated. Pt dependant on NIPPV at home. Will transition to nasal cannula during day as tolerated. c/w abx. -Pt is alert, awake with no signs of metabolic encephalopathy. c/w tramadol po; morphine prn. -c/w IV Cefepime 2gm q12h(day#4); completed 5 days azithro. Will initiate metanebs to help mobilize secretions. On solumedrol 40mg bid, no wheeze on auscultation, will titrate steroids. c/w bronchodilators, aspiration precautions. - Tachycardia improved with metoprolol. Intermittent hypotension, not requiring pressors. IVF d/emily. TTE 06/29 - normal LV fxn, normal RV fxn, no overt valvular disease. - Renal function stable, electrolytes repleted. Strict I/O, replete to keep Mg> 2. -Started diet, feed with assistance. - Hg, plt stable -DVT proph with SCD/lovenox -Pressure ulcer prophylaxis. OOB to chair -GI prophylaxis: h2b OOB to chair as tolerated. BiPAP prn for distress, will need ICU given high FiO2 requirement
[2019-07-04] MEDS ORDERED: Acetylcysteine INH SOL* 200 MG/ML 4 ML VIAL (for Resp Thpy) INH SCH (13:00)
[2019-07-04] MEDS ORDERED: Acetylcysteine INHALATION SOL* 200 MG/ML NEB.SOLN 10 ML ONE (13:37)
[2019-07-04] MEDS: Acetylcysteine INHALATION SOL* 200 MG/ML NEB.SOLN 10 ML INH SCH ×2 (13:45→18:52)
[2019-07-04] MEDS: Albuterol/Ipratropium NEB.SOL* Albuterol 2.5 MG/Ipratropium 0.5 MG 3 ML INH PRN (13:45)
[2019-07-04] MEDS: Albuterol/Ipratropium NEB.SOL* Albuterol 2.5 MG/Ipratropium 0.5 MG 3 ML INH SCH (18:52)
[2019-07-04] MEDS: Melatonin 3 MG TAB PO SCH (20:10)
[2019-07-04] MEDS: Nicotine PATCH 14 MG/24 HR* PATCH TRANSDERM SCH (20:10)
[2019-07-04] MEDS: Morphine INJ* 2 MG/ML 1 ML SYRINGE (TWO MG - NEW SYRINGE VERSION) IV PRN (20:10)
[2019-07-04] MEDS: Nicotine Patch Removal NOTE PATCH OFF SCH (20:11)
[2019-07-05] MEDS: Albuterol/Ipratropium NEB.SOL* Albuterol 2.5 MG/Ipratropium 0.5 MG 3 ML INH SCH ×4 (01:05→19:05)
[2019-07-05] MEDS: Acetylcysteine INHALATION SOL* 200 MG/ML NEB.SOLN 10 ML INH SCH ×4 (01:05→19:05)
[2019-07-05] MEDS: Cefepime 2 GM in Dextrose(*) 2 GM/50 ML BAG IV SCH ×2 (01:10→13:13)
[2019-07-05] MEDS: Morphine INJ* 2 MG/ML 1 ML SYRINGE (TWO MG - NEW SYRINGE VERSION) IV PRN ×2 (01:13→13:12)
[2019-07-05 05:07] LABS: Hematocrit 37 % (42-52); Hemoglobin 12.1 g/dL (14.0-18.0); Mean Corpuscular HGB Conc 32 g/dL (31-36); Mean Corpuscular Hemoglobin 30 pg (27-31); Mean Corpuscular Volume 93 fL (80-94); Mean Platelet Volume 8.3 fL (7.4-10.4); Platelet Count 377 10^3/uL (150-450); Red Blood Count 4.01 10^6 /uL (4.18-5.48); Red Cell Distribution Width 15 % (10-15); White Blood Count 14.3 10^3/uL (3.5-10.8)
[2019-07-05 05:25] LABS: EGFR African American 127.7 (>60); EGFR Non-African American 105.5 (>60); Magnesium 2.3 mg/dL (1.9-2.7); Phosphorus 3.7 mg/dL (2.5-5.0); Potassium 5.4 mmol/L (3.5-5.0)
[2019-07-05] MEDS: guaiFENesin ER TAB 600 MG PO SCH ×2 (07:14→20:34)
[2019-07-05] MEDS: Metoprolol Tartrate TAB* 100 MG TAB PO SCH ×2 (07:14→20:34)
[2019-07-05] MEDS: Famotidine TAB* 20 MG PO SCH ×2 (07:15→20:35)
[2019-07-05] MEDS: Fluticasone NASAL SPRAY 50MCG* 16 gm SPRAY BTL BOTH NARES SCH (07:16)
[2019-07-05] MEDS: FLUTICASONE/UMECLIDIN/VILANTER 1 PUFF MDI INH SCH (07:17)
[2019-07-05] MEDS: Enoxaparin(*) 40 MG/0.4 ML SYR SUBCUT SCH (07:17)
--- NOTE | 2019-07-05 08:02 | PN ---
Progress Note - Progress Note Date of Service: 07/05/19 - Transfer note Note: Pt seen and examined at bedside. No acute events o/n. Pt was able to be titrated to 5L O2 yesterday. Has required increase in FiO2 to 8L while moving and cleaning. Denies any other issues today. Continues to have cough with thick phleghm Active Medications Generic Name Dose Route Start Last Admin Trade Name Freq PRN Reason Stop Dose Admin Acetaminophen 650 mg 06/29/19 05:45 07/03/19 21:29 Tylenol Tab* PO 650 mg Q4H PRN Administration MILD PAIN or TEMP > 100.4 Acetylcysteine 400 mg 07/04/19 13:45 07/05/19 06:59 Mucomyst Inhalation Silvana* INH 400 mg [id number] AWAKE MORGAN Administration Albuterol/Ipratropium 1 neb 07/04/19 19:00 07/05/19 06:59 Duoneb (Albuterol 2.5 Mg/Ipratropium 0.5 Mg) INH 1 neb [id number] AWAKE MORGAN Administration Cyclobenzaprine HCl 10 mg 07/02/19 10:21 Flexeril Tab* PO TID PRN SPASMS Enoxaparin Sodium 40 mg 06/30/19 09:00 07/05/19 07:17 Lovenox(*) SUBCUT 40 mg Q24HR MORGAN Administration Famotidine 20 mg 07/02/19 11:00 07/05/19 07:15 Pepcid Tab* PO 20 mg BID MORGAN Administration Fluticasone Propionate 2 spray 06/29/19 11:00 07/05/19 07:16 Flonase Nasal [place] 50mcg* BOTH NARES 2 spray DAILY MORGAN Administration Guaifenesin 1,200 mg 06/29/19 21:00 07/05/19 07:14 Mucinex* PO 1,200 mg BID MORGAN Administration Cefepime HCl 2 gm in 50 mls @ 100 mls/hr 07/01/19 13:00 07/05/19 01:10 Maxipime 2 Gm In Dextrose Duplex (*) IV 100 mls/hr Q12H MORGAN Administration Levalbuterol HCl 1.25 mg 06/29/19 02:52 07/01/19 03:19 Xopenex 1.25 Mg/0.5 Ml Neb.Silvana* INH 1.25 mg Q4H PRN Administration SOB/WHEEZING Melatonin 3 mg 06/29/19 23:00 07/04/19 20:10 Melatonin PO 3 mg BEDTIME MORGAN Administration Methylprednisolone Sodium Succinate 40 mg 07/01/19 10:00 07/04/19 22:16 Solu-Medrol 40 Mg IV 40 mg Q12H MORGAN Administration Metoprolol Tartrate 50 mg 07/01/19 12:00 07/05/19 07:14 Lopressor Tab* PO 50 mg Q12HR MORGAN Administration Morphine Sulfate 2 mg 07/01/19 09:45 07/05/19 01:13 Morphine Inj (Syringe))* IV 2 mg Q4H PRN Administration Severe pain or air hunger Nicotine 1 patch 06/30/19 21:00 07/04/19 20:10 Nicotine Patch 14 Mg/24 Hr* TRANSDERM 1 patch BEDTIME MORGAN Administration Nicotine Polacrilex 2 mg 06/30/19 12:17 Nicotine Lozenge Mini MT Q2H PRN CRAVING Pharmacy Profile Note 1 note 06/29/19 21:00 07/04/19 20:11 Nicotine Patch Removal Note* PATCH OFF 1 note 2100 MORGAN Administration Tramadol HCl 50 mg 06/29/19 22:27 07/01/19 11:06 Ultram* PO 50 mg Q6H PRN Administration PAIN - MODERATE Vital Signs Temp Pulse Resp BP Pulse Ox 98.0 F 78 18 116/70 91 07/05/19 03:42 07/05/19 08:01 07/05/19 08:00 07/05/19 08:01 07/05/19 08:01 O/E: Pt in NAD, sitting up in chair HEENT: PERRLA, no JVD, MP-4 Lungs: Distant breath sounds, no audible wheeze CVS: S1, S2+ Abd: Obese, BS+ Ext: Normal ROM Skin: NO rash Neuro: pt is alert, awake, responds appropriately Laboratory Results - last 24 hr 07/05/19 07/05/19 04:50 04:50 WBC 14.3 H RBC 4.01 L Hgb 12.1 L Hct 37 L MCV 93 MCH 30 MCHC 32 RDW 15 Plt Count 377 MPV 8.3 Sodium 136 Potassium 5.4 H Chloride 97 L Carbon Dioxide 37 H Anion Gap 2 BUN 27 H Creatinine 0.75 Est GFR ( Amer) 127.7 Est GFR (Non-Af Amer) 105.5 BUN/Creatinine Ratio 36.0 H Glucose 203 H Calcium 8.0 L Phosphorus 3.7 Magnesium 2.3 Transfer summary: 63y M with h/o COPD, on 3L home O2, active smoker, CHF, NSVT admitted 06/28 for shortness of breath, cough+, fevers, dx with left upper/lower lobe pneumonia, possible COPD exacerbation, was transferred to ICU for HFNC and possible NIV. Pt with sepsis secondary to pseudomonal PNA. Patient continues to have cough with thick phleghm, was initiated on mucomyst and metanebs yesterday for mucus clearance. Patient is on chronic BiPAP prior to admission. Patient was able to be tapered off BiPAP during the day and is currently on O2 through nasal cannula. -Left sided PNA with evidence of air space opacities. Pt with progression of air space opacities on CXR, repeat CXR is pending. Will titrate FiO2 as tolerated to keep O2 around 90%. Pt dependant on NIPPV at home. Will transition to nasal cannula during day as tolerated. c/w abx. -Pt is alert, awake with no signs of metabolic encephalopathy. c/w tramadol po; morphine prn. -c/w IV Cefepime 2gm q12h(day#5/); completed 5 days azithro. c/w metanebs to help mobilize secretions. On solumedrol 40mg bid, no wheeze on auscultation, can start taper. c/w bronchodilators, aspiration precautions. - Tachycardia improved with metoprolol. Intermittent hypotension, not requiring pressors. IVF d/emily. TTE 06/29 - normal LV fxn, normal RV fxn, no overt valvular disease. - Renal function stable, electrolytes repleted. Strict I/O, replete to keep Mg> 2. -Started diet, feed with assistance. - Hg, plt stable -DVT proph with SCD/lovenox -Pressure ulcer prophylaxis. -GI prophylaxis: h2b OOB to chair as tolerated. BiPAP prn for distress and at night Patient is stable to be transferred to medical floor under Dr Martinez`s service.
[2019-07-05] MEDS: methylPREDNISolone SOD 40 MG* 1 ML VIAL IV SCH ×2 (10:58→20:34)
[2019-07-05] MEDS: Levalbuterol 1.25MG/0.5ML NEB INH PRN (11:23)
[2019-07-05] MEDS: Melatonin 3 MG TAB PO SCH (20:34)
[2019-07-05] MEDS: Nicotine Patch Removal NOTE PATCH OFF SCH (20:35)
[2019-07-05] MEDS: Nicotine PATCH 14 MG/24 HR* PATCH TRANSDERM SCH (20:35)
[2019-07-06] MEDS: Acetylcysteine INHALATION SOL* 200 MG/ML NEB.SOLN 10 ML INH SCH ×4 (01:34→19:33)
[2019-07-06] MEDS: Albuterol/Ipratropium NEB.SOL* Albuterol 2.5 MG/Ipratropium 0.5 MG 3 ML INH SCH ×4 (01:34→19:33)
[2019-07-06] MEDS: Cefepime 2 GM in Dextrose(*) 2 GM/50 ML BAG IV SCH ×2 (01:44→13:17)
[2019-07-06] MEDS: FLUTICASONE/UMECLIDIN/VILANTER 1 PUFF MDI INH SCH (07:36)
[2019-07-06] MEDS: SPIRIVA Respimat* (tiotropium) 2.5 mcg/inh Inhaler INH SCH (08:59)
[2019-07-06] MEDS: Mometasone/Formoter 200/5 MDI INH SCH ×2 (08:59→19:49)
[2019-07-06] MEDS: guaiFENesin ER TAB 600 MG PO SCH ×2 (10:53→19:47)
[2019-07-06] MEDS: predniSONE TAB* 20 MG PO SCH (10:53)
[2019-07-06] MEDS: Famotidine TAB* 20 MG PO SCH ×2 (10:53→19:47)
[2019-07-06] MEDS: Enoxaparin(*) 40 MG/0.4 ML SYR SUBCUT SCH (10:53)
[2019-07-06] MEDS: Metoprolol Tartrate TAB* 100 MG TAB PO SCH ×2 (10:53→19:47)
[2019-07-06] MEDS: Fluticasone NASAL SPRAY 50MCG* 16 gm SPRAY BTL BOTH NARES SCH (10:54)
--- NOTE | 2019-07-06 16:35 | PN ---
Subjective Date of Service: 07/06/19 Interval History: Patient is feeling better today. Patient has less SOB. Patient has cough with production, but denies any hemoptysis. Patient denies CP, Dizziness, palpitations, headache, F/C, dysuria, or other pain. Family History: Unchanged from Admission Social History: Unchanged from Admission Past Medical History: Unchanged from Admission Objective Active Medications: Acetaminophen (Tylenol Tab*) 650 mg PO Q4H PRN PRN Reason: MILD PAIN or TEMP > 100.4 Last Admin: 07/03/19 21:29 Dose: 650 mg Acetylcysteine (Mucomyst Inhalation Silvana*) 400 mg INH [id number] AWAKE [facility] Last Admin: 07/06/19 13:07 Dose: 400 mg Albuterol/Ipratropium (Duoneb (Albuterol 2.5 Mg/Ipratropium 0.5 Mg)) 1 neb INH [id number] AWAKE [facility] Last Admin: 07/06/19 13:07 Dose: 1 neb Cyclobenzaprine HCl (Flexeril Tab*) 10 mg PO TID PRN PRN Reason: SPASMS Enoxaparin Sodium (Lovenox(*)) 40 mg SUBCUT Q24HR [facility] Last Admin: 07/06/19 10:53 Dose: 40 mg Famotidine (Pepcid Tab*) 20 mg PO BID [facility] Last Admin: 07/06/19 10:53 Dose: 20 mg Fluticasone Propionate (Flonase Nasal [place] 50mcg*) 2 spray BOTH NARES DAILY MORGAN Last Admin: 07/06/19 10:54 Dose: 2 spray Guaifenesin (Mucinex*) 1,200 mg PO BID [facility] Last Admin: 07/06/19 10:53 Dose: 1,200 mg Cefepime HCl (Maxipime 2 Gm In Dextrose Duplex (*)) 2 gm in 50 mls @ 100 mls/ hr IV Q12H [facility] Last Admin: 07/06/19 13:17 Dose: 100 mls/hr Levalbuterol HCl (Xopenex 1.25 Mg/0.5 Ml Neb.Silvana*) 1.25 mg INH Q4H PRN PRN Reason: SOB/WHEEZING Last Admin: 07/05/19 11:23 Dose: 1.25 mg Melatonin (Melatonin) 3 mg PO BEDTIME [facility] Last Admin: 07/05/19 20:34 Dose: 3 mg Metoprolol Tartrate (Lopressor Tab*) 50 mg PO Q12HR [facility] Last Admin: 07/06/19 10:53 Dose: 50 mg Mometasone Furoate/Formoterol Fumar (Dulera 200/5 Mdi*) 2 puff INH BID [facility] Last Admin: 07/06/19 08:59 Dose: Not Given Morphine Sulfate (Morphine Inj (Syringe))*) 2 mg IV Q4H PRN PRN Reason: Severe pain or air hunger Last Admin: 07/05/19 13:12 Dose: 2 mg Nicotine (Nicotine Patch 14 Mg/24 Hr*) 1 patch TRANSDERM BEDTIME [facility] Last Admin: 07/05/19 20:35 Dose: 1 patch Nicotine Polacrilex (Nicotine Lozenge Mini) 2 mg MT Q2H PRN PRN Reason: CRAVING Pharmacy Profile Note (Nicotine Patch Removal Note*) 1 note PATCH OFF 2100 [facility] Last Admin: 07/05/19 20:35 Dose: 1 note Prednisone (Deltasone Tab*) 60 mg PO DAILY [facility] Last Admin: 07/06/19 10:53 Dose: 60 mg Tiotropium [place] (Spiriva Respimat 2.5 Mcg) 2 puff INH DAILY [facility] Last Admin: 07/06/19 08:59 Dose: Not Given Tramadol HCl (Ultram*) 50 mg PO Q6H PRN PRN Reason: PAIN - MODERATE Last Admin: 07/01/19 11:06 Dose: 50 mg Vital Signs - 8 hr 07/06/19 07/06/19 07/06/19 11:05 13:09 15:43 Temperature 97.5 F 97.4 F Pulse Rate 90 89 110 Respiratory 22 18 20 Rate Blood Pressure 115/54 105/53 (mmHg) O2 Sat by Pulse 97 100 96 Oximetry Oxygen Devices in Use Now: Nasal Cannula Appearance: Patient is a 63yo male who appears stated age and is sitting in the bed in NAD. Eyes: No Scleral Icterus, PERRLA Ears/Nose/Mouth/Throat: NL Teeth, Lips, Gums, Clear Oropharnyx, Mucous Membranes Moist Neck: NL Appearance and Movements; NL JVP, Trachea Midline Respiratory: Symmetrical Chest Expansion and Respiratory Effort, - - Diminished throughout, No Other adventitious lung sounds. Cardiovascular: NL Sounds; No Murmurs; No JVD, RRR, No Edema Abdominal: NL Sounds; No Tenderness; No Distention, No Hepatosplenomegaly Lymphatic: No Cervical Adenopathy Extremities: No Edema, No Clubbing, Cyanosis Skin: No Rash or Ulcers, No Nodules or Sclerosis Neurological: Alert and Oriented x 3, NL Sensation, NL Muscle Strength and Tone , - - CN II-XII intact. Result Diagrams: 07/05/19 04:50 07/05/19 04:50 Additional Lab and Data: Lab Results Microbiology and Other Data: Microbiology 06/29/19 05:38 Legionella Urinary Antigen - Final Urine Negative Legionella Antigen 06/29/19 05:38 Streptococcus pneumoniae Ag Screen - Final Urine Negative S. pneumo Antigen Assess/Plan/Problems-Billing Assessment: Mr. Tavares is a 63 yo M with PMH of COPD with chronic respiratory failure on 3L, LAMONT on BiPAP, current smoker, and nonsustained VT; who presented with fever found to have sepsis 2/2 pneumonia and COPD exacerbation, improving. - Patient Problems (1) Acute and chronic respiratory failure with hypoxia Current Visit: Yes Status: Acute Code(s): J96.21 - ACUTE AND CHRONIC RESPIRATORY FAILURE WITH HYPOXIA SNOMED Code(s): 73709977 Comment: - Baseline 3L during the day, BiPAP at night - Secondary to pneumonia and COPD exacerbation - Required 4L on admission, required Vapotherm and BiPAP in ICU, now back to 3L - Transition to Oral Prednisone (2) Pneumonia Current Visit: Yes Status: Acute Code(s): J18.9 - PNEUMONIA, UNSPECIFIED ORGANISM SNOMED Code(s): 055944847 Comment: - History of H. influenzae pneumonia which is likely again d/t COPD and colonization - Left-sided pneumonia on CXR on admission - Persistent leukocytosis, likely due to steroids. - Previously having soft pressures, but now normotensive - Urine antigens negative for S. pneumo and Legionella - Sputum culture growing Pseudomonas - Continue cefepime for 10 day course. (3) Sepsis Current Visit: No Status: Acute Comment: - Met criteria on admission and still meeting criteria with leukocytosis, tachypnea, tachycardia - Secondary to pneumonia - Normotensive today - Continue Antibiotics (4) Nonsustained ventricular tachycardia Current Visit: Yes Status: Acute Code(s): I47.2 - VENTRICULAR TACHYCARDIA SNOMED Code(s): 635932448 Comment: - History of nonsustained VT - Continue metoprolol (5) LAMONT (obstructive sleep apnea) Current Visit: Yes Status: Acute Code(s): G47.33 - OBSTRUCTIVE SLEEP APNEA ( ADULT) (PEDIATRIC) SNOMED Code(s): 35067965 Comment: - BiPAP at HS (6) RBBB Current Visit: Yes Status: Acute Code(s): I45.10 - UNSPECIFIED RIGHT BUNDLE- BRANCH BLOCK SNOMED Code(s): 31684391 Comment: - New RBBB noted on EKG at admission - Echo without changes form 2012; EF 50-55%, no wall motion abnormalities, no diastolic dysfunction, no significant valve abnormalities - Suspect secondary to right heart strain in setting of PNA and COPD exacerbation (7) Smoking 1/2 pack a day or less Current Visit: Yes Status: Acute Code(s): F17.210 - NICOTINE DEPENDENCE, CIGARETTES, UNCOMPLICATED SNOMED Code(s): 546620911 Comment: - Encouarge smoking cessation - Continue nicotine replacement (8) COPD exacerbation Current Visit: No Status: Acute Code(s): J44.1 - CHRONIC OBSTRUCTIVE PULMONARY DISEASE W (ACUTE) EXACERBATION SNOMED Code(s): 025814730 Comment: - Secondary to pneumonia - Respiratory status improving - Flutter valve, acetylcysteine and Metanebs. - Continue nebs, Trelegy Ellipta autosub, Flonase, Steroids PO (9) HTN (hypertension) Current Visit: No Status: Acute Code(s): I10 - ESSENTIAL (PRIMARY) HYPERTENSION SNOMED Code(s): 94597356 Comment: - Controlled, Continue Metoprolol (10) DVT prophylaxis Current Visit: No Status: Acute Code(s): TNZ5847 - SNOMED Code(s): 041272429 Comment: - Lovenox (11) DNR (do not resuscitate) Current Visit: No Status: Acute Comment: Status and Disposition: Inpatient ICU for increased respiratory support, hopefully out of ICU tomorrow. Anticipate d/c home when medically stable.
[2019-07-06] MEDS: Nicotine PATCH 14 MG/24 HR* PATCH TRANSDERM SCH (19:46)
[2019-07-06] MEDS: Melatonin 3 MG TAB PO SCH (19:47)
[2019-07-06] MEDS: Nicotine Patch Removal NOTE PATCH OFF SCH (19:51)
[2019-07-07] MEDS: Cefepime 2 GM in Dextrose(*) 2 GM/50 ML BAG IV SCH ×2 (00:51→14:26)
[2019-07-07] MEDS: Acetylcysteine INHALATION SOL* 200 MG/ML NEB.SOLN 10 ML INH SCH ×4 (01:52→19:35)
[2019-07-07] MEDS: Albuterol/Ipratropium NEB.SOL* Albuterol 2.5 MG/Ipratropium 0.5 MG 3 ML INH SCH ×4 (01:52→19:35)
[2019-07-07 06:09] LABS: Hematocrit 42 % (42-52); Hemoglobin 13.7 g/dL (14.0-18.0); Mean Corpuscular HGB Conc 32 g/dL (31-36); Mean Corpuscular Hemoglobin 30 pg (27-31); Mean Corpuscular Volume 93 fL (80-94); Mean Platelet Volume 8.4 fL (7.4-10.4); Platelet Count 373 10^3/uL (150-450); Red Blood Count 4.54 10^6 /uL (4.18-5.48); Red Cell Distribution Width 15 % (10-15); White Blood Count 15.8 10^3/uL (3.5-10.8)
[2019-07-07 06:23] LABS: Calcium 8.6 mg/dL (8.6-10.3); Magnesium 2.2 mg/dL (1.9-2.7); Potassium 4.8 mmol/L (3.5-5.0)
[2019-07-07 06:29] LABS: BUN/Creatinine Ratio 29.5 (8-20); EGFR African American 106.2 (>60); EGFR Non-African American 87.8 (>60)
[2019-07-07 07:12] LABS: ABS Eosinophils 0.1 10^3/ul (0-0.6); ABS Lymphocytes 2.6 10^3/ul (1.0-4.8); Eosinophil % 0.8 %; Lymphocyte % 16.7 %
[2019-07-07] MEDS: SPIRIVA Respimat* (tiotropium) 2.5 mcg/inh Inhaler INH SCH (07:42)
[2019-07-07] MEDS: Mometasone/Formoter 200/5 MDI INH SCH ×2 (07:42→19:39)
[2019-07-07] MEDS: guaiFENesin ER TAB 600 MG PO SCH ×2 (08:57→20:21)
[2019-07-07] MEDS: predniSONE TAB* 20 MG PO SCH (08:58)
[2019-07-07] MEDS: Famotidine TAB* 20 MG PO SCH ×2 (08:58→20:21)
[2019-07-07] MEDS: Fluticasone NASAL SPRAY 50MCG* 16 gm SPRAY BTL BOTH NARES SCH (09:05)
[2019-07-07] MEDS: Acetaminophen TAB* 325 MG PO PRN (09:05)
[2019-07-07] MEDS: Enoxaparin(*) 40 MG/0.4 ML SYR SUBCUT SCH (09:06)
[2019-07-07] MEDS: Metoprolol Tartrate TAB* 100 MG TAB PO SCH ×2 (09:34→20:21)
--- NOTE | 2019-07-07 14:30 | PN ---
Subjective Date of Service: 07/07/19 Interval History: Patient seen and examined. Ambulating with PT in hallways. Tachycardia with ambulation but no acute SOB and no desautrations noted, does have some tachypnea but denies weakness, no dizziness, no chest pain. Denies fevers or chills. No further complaints and no acute overnight events. Family History: Unchanged from Admission Social History: Unchanged from Admission Past Medical History: Unchanged from Admission Objective Active Medications: Acetaminophen (Tylenol Tab*) 650 mg PO Q4H PRN PRN Reason: MILD PAIN or TEMP > 100.4 Last Admin: 07/07/19 09:05 Dose: 650 mg Acetylcysteine (Mucomyst Inhalation Silvana*) 400 mg INH [id number] [facility] Last Admin: 07/07/19 13:35 Dose: 400 mg Albuterol/Ipratropium (Duoneb (Albuterol 2.5 Mg/Ipratropium 0.5 Mg)) 1 neb INH [id number] [facility] Last Admin: 07/07/19 13:35 Dose: 1 neb Cyclobenzaprine HCl (Flexeril Tab*) 10 mg PO TID PRN PRN Reason: SPASMS Enoxaparin Sodium (Lovenox(*)) 40 mg SUBCUT Q24HR [facility] Last Admin: 07/07/19 09:06 Dose: 40 mg Famotidine (Pepcid Tab*) 20 mg PO BID [facility] Last Admin: 07/07/19 08:58 Dose: 20 mg Fluticasone Propionate (Flonase Nasal [place] 50mcg*) 2 spray BOTH NARES DAILY [facility] Last Admin: 07/07/19 09:05 Dose: 2 spray Guaifenesin (Mucinex*) 1,200 mg PO BID [facility] Last Admin: 07/07/19 08:57 Dose: 1,200 mg Cefepime HCl (Maxipime 2 Gm In Dextrose Duplex (*)) 2 gm in 50 mls @ 100 mls/ hr IV Q12H [facility] Last Admin: 07/07/19 00:51 Dose: 100 mls/hr Levalbuterol HCl (Xopenex 1.25 Mg/0.5 Ml Neb.Silvana*) 1.25 mg INH Q4H PRN PRN Reason: SOB/WHEEZING Last Admin: 07/05/19 11:23 Dose: 1.25 mg Melatonin (Melatonin) 3 mg PO BEDTIME [facility] Last Admin: 07/06/19 19:47 Dose: 3 mg Metoprolol Tartrate (Lopressor Tab*) 50 mg PO Q12HR [facility] Last Admin: 07/07/19 09:34 Dose: 50 mg Mometasone Furoate/Formoterol Fumar (Dulera 200/5 Mdi*) 2 puff INH BID [facility] Last Admin: 07/07/19 07:42 Dose: 2 puff Morphine Sulfate (Morphine Inj (Syringe))*) 2 mg IV Q4H PRN PRN Reason: Severe pain or air hunger Last Admin: 07/05/19 13:12 Dose: 2 mg Nicotine (Nicotine Patch 14 Mg/24 Hr*) 1 patch TRANSDERM BEDTIME [facility] Last Admin: 07/06/19 19:46 Dose: 1 patch Nicotine Polacrilex (Nicotine Lozenge Mini) 2 mg MT Q2H PRN PRN Reason: CRAVING Pharmacy Profile Note (Nicotine Patch Removal Note*) 1 note PATCH OFF 2100 [facility] Last Admin: 07/06/19 19:51 Dose: 1 note Prednisone (Deltasone Tab*) 60 mg PO DAILY [facility] Last Admin: 07/07/19 08:58 Dose: 60 mg Tiotropium [place] (Spiriva Respimat 2.5 Mcg) 2 puff INH DAILY [facility] Last Admin: 07/07/19 07:42 Dose: 2 puff Tramadol HCl (Ultram*) 50 mg PO Q6H PRN PRN Reason: PAIN - MODERATE Last Admin: 07/01/19 11:06 Dose: 50 mg Vital Signs - 8 hr 07/07/19 07/07/19 07/07/19 07:15 07:46 08:00 Temperature 98.5 F Pulse Rate 101 98 Respiratory 16 20 Rate Blood Pressure 90/56 (mmHg) O2 Sat by Pulse 96 95 Oximetry 07/07/19 07/07/19 07/07/19 09:25 11:15 13:39 Temperature 98.3 F Pulse Rate 124 91 94 Respiratory 18 18 20 Rate Blood Pressure 106/47 90/46 (mmHg) O2 Sat by Pulse 97 97 94 Oximetry Oxygen Devices in Use Now: Nasal Cannula Appearance: alert, NAD Eyes: PERRLA Ears/Nose/Mouth/Throat: Mucous Membranes Moist Neck: NL Appearance and Movements; NL JVP, Trachea Midline Respiratory: Symmetrical Chest Expansion and Respiratory Effort, - - diminished throuhout lung proctor, no wheeze, no rhonchi or rales Cardiovascular: NL Sounds; No Murmurs; No JVD - tachy, rate 139, No Edema Abdominal: NL Sounds; No Tenderness; No Distention Extremities: No Edema, No Clubbing, Cyanosis Skin: No Rash or Ulcers Neurological: Alert and Oriented x 3, - - walker and gait belt utilized Nutrition: Taking PO's Result Diagrams: 07/07/19 05:43 07/07/19 05:43 Additional Lab and Data: Lab Results Microbiology and Other Data: Microbiology 06/29/19 05:38 Legionella Urinary Antigen - Final Urine Negative Legionella Antigen 06/29/19 05:38 Streptococcus pneumoniae Ag Screen - Final Urine Negative S. pneumo Antigen Diagnostic Imaging: Patient Name: JEAN TAVARES Medical Record#: [id number] Ordering Physician: Bree Koenig MD Acct.#: [id number] : 1955 Age: 63 Sex: M Location: [address] [place] [address] - MEDICAL Exam Date: 07/05/19755 ADM Status: ADM IN Order Information: CHEST AP OR PORT Accession Number: [id number] CPT: 03674 Indication: Follow-up pneumonia. Single frontal view of the chest performed at 0820 hours was reviewed. Comparison is made with previous exam dated July 03, 2019. Left upper lobe airspace disease persists. Left lung basilar infiltrate is slightly improved. Right lung field appears hyperinflated. Cardiothymic silhouette is otherwise unremarkable. IMPRESSION: LEFT UPPER LOBE AIRSPACE DISEASE CONSISTENT WITH PNEUMONIA UNCHANGED. LEFT BASILAR INFILTRATE APPEARS TO BE IMPROVED. HYPERINFLATED RIGHT LUNG FIELD. Assess/Plan/Problems-Billing Assessment: Mr. Tavares is a 63 yo M with PMH of COPD with chronic respiratory failure on 3L, LAMONT on BiPAP, current smoker, and nonsustained VT; who presented with fever found to have sepsis 2/2 pneumonia and COPD exacerbation, improving. - Patient Problems (1) Acute and chronic respiratory failure with hypoxia Code(s): J96.21 - ACUTE AND CHRONIC RESPIRATORY FAILURE WITH HYPOXIA SNOMED Code(s): 93763475 Comment: - 2/2 COPD exacerbation/tobacco abuse and PNA - Required 4L on admission, required Vapotherm and BiPAP in ICU, now back to 3L - Transitioned to Oral Prednisone today from IV solumedrol and tolerating - Continue nebs, inhalers and mucinex (2) Pneumonia Code(s): J18.9 - PNEUMONIA, UNSPECIFIED ORGANISM SNOMED Code(s): 299142184 Comment: - LLL, CXR from yesterday with continued improvement - Urine antigens negative for S. pneumo and Legionella - Sputum culture growing Pseudomonas - Afebrile with leukocytosis improving - Continue cefepime day 03/02 (3) LAMONT (obstructive sleep apnea) Code(s): G47.33 - OBSTRUCTIVE SLEEP APNEA (ADULT) (PEDIATRIC) SNOMED Code(s): 41890244 Comment: - BiPAP at HS (4) Sepsis Comment: - Met criteria on admission with leukocytosis, tachypnea, tachycardia; source pneumonia - Hypotensive with periods of tachycardia but does not appear toxic and is afebrile - Continue cefepime - Resolved (5) RBBB Code(s): I45.10 - UNSPECIFIED RIGHT BUNDLE-BRANCH BLOCK SNOMED Code(s): 55831877 Comment: - New RBBB noted on EKG at admission - Echo without changes form 2012; EF 50-55%, no wall motion abnormalities, no diastolic dysfunction, no significant valve abnormalities - Suspect secondary to right heart strain in setting of PNA and COPD exacerbation - No chest pain, continue tele (6) Nonsustained ventricular tachycardia Code(s): I47.2 - VENTRICULAR TACHYCARDIA SNOMED Code(s): 212691927 Comment: - History of nonsustained VT, none on tele, only having periods of sinus tach with exertion - Continue metoprolol at current dose (7) Smoking 1/2 pack a day or less Code(s): F17.210 - NICOTINE DEPENDENCE, CIGARETTES, UNCOMPLICATED SNOMED Code( s): 726798119 Comment: - Should quit indefinitely given poor respiratory status - Continue nicotine replacement (8) DNR (do not resuscitate) Comment: (9) DVT prophylaxis Code(s): THI8593 - SNOMED Code(s): 458351318 Comment: - Lovenox Status and Disposition: Inpatient, progressing. Will required completion of 10 days atbx. May be able to transition to oral sooner if improvement continues.
[2019-07-07] MEDS: Melatonin 3 MG TAB PO SCH (20:21)
[2019-07-07] MEDS: Nicotine Patch Removal NOTE PATCH OFF SCH (20:27)
[2019-07-07] MEDS: Nicotine PATCH 14 MG/24 HR* PATCH TRANSDERM SCH (20:27)
[2019-07-08] MEDS: Acetylcysteine INHALATION SOL* 200 MG/ML NEB.SOLN 10 ML INH SCH ×4 (00:54→19:57)
[2019-07-08] MEDS: Albuterol/Ipratropium NEB.SOL* Albuterol 2.5 MG/Ipratropium 0.5 MG 3 ML INH SCH ×4 (00:55→19:42)
[2019-07-08] MEDS: Cefepime 2 GM in Dextrose(*) 2 GM/50 ML BAG IV SCH ×2 (01:00→12:46)
[2019-07-08 06:14] LABS: Hematocrit 41 % (42-52); Hemoglobin 13.1 g/dL (14.0-18.0); Mean Corpuscular HGB Conc 32 g/dL (31-36); Mean Corpuscular Hemoglobin 30 pg (27-31); Mean Corpuscular Volume 93 fL (80-94); Mean Platelet Volume 8.3 fL (7.4-10.4); Platelet Count 307 10^3/uL (150-450); Red Blood Count 4.36 10^6 /uL (4.18-5.48); Red Cell Distribution Width 15 % (10-15)
[2019-07-08 06:28] LABS: Calcium 8.3 mg/dL (8.6-10.3); Potassium 4.6 mmol/L (3.5-5.0)
[2019-07-08 06:34] LABS: BUN/Creatinine Ratio 33.8 (8-20); EGFR African American 123.9 (>60); EGFR Non-African American 102.4 (>60)
[2019-07-08] MEDS: SPIRIVA Respimat* (tiotropium) 2.5 mcg/inh Inhaler INH SCH (07:44)
[2019-07-08] MEDS: Mometasone/Formoter 200/5 MDI INH SCH ×2 (07:44→19:42)
[2019-07-08] MEDS: Fluticasone NASAL SPRAY 50MCG* 16 gm SPRAY BTL BOTH NARES SCH (10:15)
[2019-07-08] MEDS: Metoprolol Tartrate TAB* 100 MG TAB PO SCH ×2 (10:16→20:56)
[2019-07-08] MEDS: guaiFENesin ER TAB 600 MG PO SCH ×2 (10:17→20:55)
[2019-07-08] MEDS: predniSONE TAB* 20 MG PO SCH (10:17)
[2019-07-08] MEDS: Famotidine TAB* 20 MG PO SCH ×2 (10:17→20:56)
[2019-07-08] MEDS: Enoxaparin(*) 40 MG/0.4 ML SYR SUBCUT SCH (10:17)
--- NOTE | 2019-07-08 12:12 | PN ---
Subjective Date of Service: 07/08/19 Interval History: Patient seen and examined. States his canula was "off" for some time this morning but cannot say for how long. Thinks he may have fallen asleep and did not use bipap and somehow his canula fell off as well. Reinforced importance of utilizing oxygen delivery devices at the appropriate times given his respiratory status. Patient currently endorses productive cough of yellow-brown sputum, denies fevers or chills, no further complaints. Family History: Unchanged from Admission Social History: Unchanged from Admission Past Medical History: Unchanged from Admission Objective Active Medications: Acetaminophen (Tylenol Tab*) 650 mg PO Q4H PRN PRN Reason: MILD PAIN or TEMP > 100.4 Last Admin: 07/07/19 09:05 Dose: 650 mg Acetylcysteine (Mucomyst Inhalation Silvana*) 400 mg INH [id number] [facility] Last Admin: 07/08/19 07:44 Dose: 400 mg Albuterol/Ipratropium (Duoneb (Albuterol 2.5 Mg/Ipratropium 0.5 Mg)) 1 neb INH [id number] [facility] Last Admin: 07/08/19 07:43 Dose: 1 neb Cyclobenzaprine HCl (Flexeril Tab*) 10 mg PO TID PRN PRN Reason: SPASMS Enoxaparin Sodium (Lovenox(*)) 40 mg SUBCUT Q24HR [facility] Last Admin: 07/08/19 10:17 Dose: 40 mg Famotidine (Pepcid Tab*) 20 mg PO BID [facility] Last Admin: 07/08/19 10:17 Dose: 20 mg Fluticasone Propionate (Flonase Nasal [place] 50mcg*) 2 spray BOTH NARES DAILY [facility] Last Admin: 07/08/19 10:15 Dose: 2 spray Guaifenesin (Mucinex*) 1,200 mg PO BID [facility] Last Admin: 07/08/19 10:17 Dose: 1,200 mg Cefepime HCl (Maxipime 2 Gm In Dextrose Duplex (*)) 2 gm in 50 mls @ 100 mls/ hr IV Q12H [facility] Last Admin: 07/08/19 01:00 Dose: 100 mls/hr Levalbuterol HCl (Xopenex 1.25 Mg/0.5 Ml Neb.Silvana*) 1.25 mg INH Q4H PRN PRN Reason: SOB/WHEEZING Last Admin: 07/05/19 11:23 Dose: 1.25 mg Melatonin (Melatonin) 3 mg PO BEDTIME [facility] Last Admin: 07/07/19 20:21 Dose: 3 mg Metoprolol Tartrate (Lopressor Tab*) 50 mg PO Q12HR [facility] Last Admin: 07/08/19 10:16 Dose: 50 mg Mometasone Furoate/Formoterol Fumar (Dulera 200/5 Mdi*) 2 puff INH BID [facility] Last Admin: 07/08/19 07:44 Dose: 2 puff Morphine Sulfate (Morphine Inj (Syringe))*) 2 mg IV Q4H PRN PRN Reason: Severe pain or air hunger Last Admin: 07/05/19 13:12 Dose: 2 mg Nicotine (Nicotine Patch 14 Mg/24 Hr*) 1 patch TRANSDERM BEDTIME [facility] Last Admin: 07/07/19 20:27 Dose: 1 patch Nicotine Polacrilex (Nicotine Lozenge Mini) 2 mg MT Q2H PRN PRN Reason: CRAVING Pharmacy Profile Note (Nicotine Patch Removal Note*) 1 note PATCH OFF [address] [facility] Last Admin: 07/07/19 20:27 Dose: 1 note Prednisone (Deltasone Tab*) 60 mg PO DAILY [facility] Last Admin: 07/08/19 10:17 Dose: 60 mg Tiotropium [place] (Spiriva Respimat 2.5 Mcg) 2 puff INH DAILY [facility] Last Admin: 07/08/19 07:44 Dose: 2 puff Tramadol HCl (Ultram*) 50 mg PO Q6H PRN PRN Reason: PAIN - MODERATE Last Admin: 07/01/19 11:06 Dose: 50 mg Vital Signs - 8 hr 07/08/19 07/08/19 07/08/19 07:15 07:39 07:45 Temperature 98.9 F Pulse Rate 99 120 Respiratory 24 20 Rate Blood Pressure 92/58 92/58 (mmHg) O2 Sat by Pulse 98 97 Oximetry Oxygen Devices in Use Now: Nasal Cannula Appearance: alert, fatigued-appearing, NAD Eyes: PERRLA Ears/Nose/Mouth/Throat: Mucous Membranes Moist Neck: Trachea Midline Respiratory: - - diminished throughout, mild exp wheeze, no rales or rhonchi Cardiovascular: RRR, No Edema Abdominal: NL Sounds; No Tenderness; No Distention Extremities: No Clubbing, Cyanosis Skin: No Rash or Ulcers Neurological: Alert and Oriented x 3 Nutrition: Taking PO's Result Diagrams: 07/08/19 05:22 07/08/19 05:22 Additional Lab and Data: Lab Results Microbiology and Other Data: Microbiology 06/29/19 05:38 Legionella Urinary Antigen - Final Urine Negative Legionella Antigen 06/29/19 05:38 Streptococcus pneumoniae Ag Screen - Final Urine Negative S. pneumo Antigen Diagnostic Imaging: Patient Name: JEAN TAVARES Medical Record#: [id number] Ordering Physician: Bree Koenig MD Acct.#: [id number] : 1955 Age: 63 Sex: M Location: [address] [place] [address] - MEDICAL Exam Date: 07/05/19755 ADM Status: ADM IN Order Information: CHEST AP OR PORT Accession Number: [id number] CPT: 08392 Indication: Follow-up pneumonia. Single frontal view of the chest performed at 0820 hours was reviewed. Comparison is made with previous exam dated July 03, 2019. Left upper lobe airspace disease persists. Left lung basilar infiltrate is slightly improved. Right lung field appears hyperinflated. Cardiothymic silhouette is otherwise unremarkable. IMPRESSION: LEFT UPPER LOBE AIRSPACE DISEASE CONSISTENT WITH PNEUMONIA UNCHANGED. LEFT BASILAR INFILTRATE APPEARS TO BE IMPROVED. HYPERINFLATED RIGHT LUNG FIELD. Assess/Plan/Problems-Billing Assessment: Mr. Tavares is a 63 yo M with PMH of COPD with chronic respiratory failure on 3L, LAMONT on BiPAP, current smoker, and nonsustained VT; who presented with fever found to have sepsis 2/2 pneumonia and COPD exacerbation, improving. - Patient Problems (1) Acute and chronic respiratory failure with hypoxia Code(s): J96.21 - ACUTE AND CHRONIC RESPIRATORY FAILURE WITH HYPOXIA SNOMED Code(s): 66051012 Comment: - 2/2 COPD exacerbation/tobacco abuse and PNA - Required 4L on admission, required Vapotherm and BiPAP in ICU, now back to 3L - Transitioned to Oral Prednisone yesterday from IV solumedrol and tolerating - Continue nebs, inhalers and mucinex (2) Pneumonia Code(s): J18.9 - PNEUMONIA, UNSPECIFIED ORGANISM SNOMED Code(s): 351182235 Comment: - LLL, CXR from 07/06 with continued improvement - Urine antigens negative for S. pneumo and Legionella - Sputum culture growing Pseudomonas, cough continues to be productive - Afebrile with leukocytosis improving - Continue cefepime day 04/01 (3) LAMONT (obstructive sleep apnea) Code(s): G47.33 - OBSTRUCTIVE SLEEP APNEA (ADULT) (PEDIATRIC) SNOMED Code(s): 97783279 Comment: - BiPAP at HS, seems to be intermittent compliance issues with this, continue to reinforce importance of using when asleep (4) Sepsis Comment: - Met criteria on admission with leukocytosis, tachypnea, tachycardia; source pneumonia - Hypotensive with periods of tachycardia but does not appear toxic and is afebrile - Continue cefepime - Resolved (5) RBBB Code(s): I45.10 - UNSPECIFIED RIGHT BUNDLE-BRANCH BLOCK SNOMED Code(s): 00763440 Comment: - New RBBB noted on EKG at admission - Echo without changes form 2012; EF 50-55%, no wall motion abnormalities, no diastolic dysfunction, no significant valve abnormalities - Suspect secondary to right heart strain in setting of PNA and COPD exacerbation - No chest pain, continue tele (6) Nonsustained ventricular tachycardia Code(s): I47.2 - VENTRICULAR TACHYCARDIA SNOMED Code(s): 315134666 Comment: - History of nonsustained VT, none on tele, only having periods of sinus tach with exertion - Continue metoprolol at current dose (7) Smoking 1/2 pack a day or less Code(s): F17.210 - NICOTINE DEPENDENCE, CIGARETTES, UNCOMPLICATED SNOMED Code( s): 616873296 Comment: - Should quit indefinitely given poor respiratory status - Continue nicotine replacement (8) DNR (do not resuscitate) Comment: (9) DVT prophylaxis Code(s): QFK2748 - SNOMED Code(s): 035706180 Comment: - Lovenox Status and Disposition: Inpatient, progressing. Will required completion of 10 days atbx, but today appears plateaued. Continue IV atbx and reassess tomorrow.
[2019-07-08] MEDS: Nicotine PATCH 14 MG/24 HR* PATCH TRANSDERM SCH (20:54)
[2019-07-08] MEDS: Melatonin 3 MG TAB PO SCH (20:55)
[2019-07-08] MEDS: Acetaminophen TAB* 325 MG PO PRN (20:59)
[2019-07-08] MEDS: Nicotine Patch Removal NOTE PATCH OFF SCH (21:08)
[2019-07-09] MEDS: Cefepime 2 GM in Dextrose(*) 2 GM/50 ML BAG IV SCH ×2 (00:06→14:32)
[2019-07-09] MEDS: Acetylcysteine INHALATION SOL* 200 MG/ML NEB.SOLN 10 ML INH SCH ×2 (00:56→07:22)
[2019-07-09] MEDS: Albuterol/Ipratropium NEB.SOL* Albuterol 2.5 MG/Ipratropium 0.5 MG 3 ML INH SCH ×3 (00:57→12:28)
[2019-07-09] MEDS: Mometasone/Formoter 200/5 MDI INH SCH (07:17)
[2019-07-09] MEDS: SPIRIVA Respimat* (tiotropium) 2.5 mcg/inh Inhaler INH SCH (07:17)
[2019-07-09] MEDS: guaiFENesin ER TAB 600 MG PO SCH (11:25)
[2019-07-09] MEDS: predniSONE TAB* 20 MG PO SCH (11:26)
[2019-07-09] MEDS: Metoprolol Tartrate TAB* 100 MG TAB PO SCH (11:26)
[2019-07-09] MEDS: Famotidine TAB* 20 MG PO SCH (11:26)
[2019-07-09] MEDS: Enoxaparin(*) 40 MG/0.4 ML SYR SUBCUT SCH (11:27)
[2019-07-09] MEDS: Fluticasone NASAL SPRAY 50MCG* 16 gm SPRAY BTL BOTH NARES SCH (14:32)
[2019-07-09 16:12] VITALS: BP 105/46
[2019-07-10] MEDS ORDERED: predniSONE TAB* 20 MG PO SCH (09:00)
--- NOTE | 2019-07-22 13:23 | DS ---
CC: Dr. Farris * DISCHARGE SUMMARY: DATE OF ADMISSION: 06/29/19 DATE OF DISCHARGE: 07/09/19 PRIMARY CARE PROVIDER: Dr. Farris. PRINCIPAL DIAGNOSES: 1. Acute on chronic hypoxic respiratory failure secondary to chronic obstructive pulmonary disease exacerbation and pneumonia. 2. Left lower lobe pneumonia. 3. Sepsis. SECONDARY DIAGNOSES: 1. Obstructive sleep apnea. 2. Tobacco abuse. DISCHARGE MEDICATIONS: 1. Trelegy Ellipta 1 puff inhaled daily. 2. Guaifenesin 10 mL p.o. 4 times daily. 3. Metoprolol tartrate 50 mg p.o. q.12 hours. 4. Levalbuterol 1 puff inhaled twice daily p.r.n. shortness of breath. 5. Atrovent 1 neb inhaled 3 times daily. 6. Albuterol 2 puffs inhaled q.4 hours p.r.n. shortness of breath. 7. Albuterol 1 neb inhaled q.4 hours p.r.n. shortness of breath. 8. Prednisone 40 mg daily x3 days and 30 mg x3 days and 20 mg x3 days and 10 mg x3 days. 9. Levaquin 500 mg p.o. daily x3 days. HOSPITAL COURSE: Mr. Tavares is a 63-year-old male who has a history of COPD and tobacco abuse, who presents to the emergency room on 06/28/19 with complaints of shortness of breath. The patient also complained of cough with sputum production 3 days prior. He also developed a fever of 101.2. In the ER , he was noted to have a multifocal pneumonia and severe hypoxia and was admitted for sepsis secondary to pneumonia with acute on chronic hypoxic respiratory failure secondary to COPD exacerbation secondary to pneumonia. The patient ultimately grew pseudomonas from the sputum. This was sensitive to many antibiotics. He received 7 days of cefepime. He was feeling markedly improved after treatment with IV antibiotics, IV fluids, nebulizers and steroids and on the day of discharge, he was feeling ready to go home. The patient did require noninvasive ventilatory support in the ICU. At the time of my evaluation, he was back on his usual 3 L of oxygen, saturating well. He has been up and ambulating without any difficulty. Because of this, the decision was made to allow the patient to be discharged to complete 3 more days of antibiotic therapy orally as opposed to staying in the hospital for another 3 days of IV cefepime. On the day of discharge, the patient is awake, alert, and oriented sitting up in bed, in no acute distress. His cardiac exam revealed a normal S1 and S2 with a regular rate and rhythm. His lungs revealed diminished breath sounds throughout, but they were clear. Abdomen was soft, nontender and nondistended. FOLLOWUP CONCERNS: The patient is being discharged home today, 07/09/19. Activity level is as tolerated. Diet is heart heathy. CONDITION ON DISCHARGE: Stable. TIME SPENT: Thirty-five minutes was spent discharging this patient [id number]/[facility] #: [id number] MTDD
== END 2019-07-09 17:20 | disposition home or self-care (01) | DRG 871 ==
LOC: ED 18:23 → MED 06-29 02:49 → ICU 07-01 03:07 → MED 07-05 09:21
PROVIDERS: ADMIT Internal Medicine; ATTEND Hospitalist
PROC: 5A09457 Assistance with Respiratory Ventilation, 24-96 Consecutive Hours, Continuous Positive Airway Pressure (ICD-10-PCS; principal; 2019-07-02)
DX: A41.52 Sepsis due to Pseudomonas (principal); J96.21 Acute and chronic respiratory failure with hypoxia; J15.1 Pneumonia due to Pseudomonas; J44.1 Chronic obstructive pulmonary disease with (acute) exacerbation; J44.0 Chronic obstructive pulmonary disease with (acute) lower respiratory infection; E87.1 Hypo-osmolality and hyponatremia; I47.1 Supraventricular tachycardia; R65.20 Severe sepsis without septic shock; I27.20 Pulmonary hypertension, unspecified; I50.9 Heart failure, unspecified; Z66 Do not resuscitate; E66.9 Obesity, unspecified; I45.10 Unspecified right bundle-branch block; F17.210 Nicotine dependence, cigarettes, uncomplicated; G47.33 Obstructive sleep apnea (adult) (pediatric); R73.09 Other abnormal glucose; Z68.35 Body mass index [BMI] 35.0-35.9, adult
CPT/HCPCS: 36415; 36600; 71045; 80048; 80053; 82803; 83036; 83605; 83735; 83880; 84100; 84484; 85025; 85027; 86803; 87040; 87070; 87077; 87186; 87205; 87641; 87899; 93005; 93306; 94640; 94660; 94667; 94668; 96365; 96375; 99284; 99406; A9270-GY; G8978-GP-CJ; G8979-GP-CI; J0456; J0692; J0696; J1650; J1940; J2270; J2920; J2930; J3535; J7512; J7608; J7611